=== PATIENT | female | born 1940 | race Caucasian/White ===

== ENCOUNTER 2018-04-02 16:22 | Inpatient (IN) ==
[2018-04-02] MEDS ORDERED: ASPIRIN CHEW 324 MG PO STA (16:50)
[2018-04-02 17:09] LABS: Basophils # (auto) 0.02 K/uL (0-0.2); Basophils % (auto) 0.3 %; Eosinophils # (auto) 0.18 K/uL (0-0.5); Eosinophils % (auto) 2.3 %; Hematocrit (blood only) 38.9 % (37-47); Hemoglobin 12.9 g/dL (12.0-16.0); Immature Granulocytes # (auto) 0.07 K/uL (0.00-0.02); Immature Granulocytes % (auto) 0.9 %; Lymphocytes # (auto) 1.05 K/uL (1.2-3.4); Lymphocytes % (auto) 13.4 %; Mean Corpuscular Hgb Conc 33.2 g/dL (32-36); Mean Corpuscular Volume 94.2 fL (80-100); Mean Platelet Volume 8.8 fL (7.4-10.4); Monocytes # (auto) 0.75 K/uL (0.11-0.59); Monocytes % (auto) 9.6 %; Neutrophils # (auto) 5.74 K/uL (1.4-6.5); Neutrophils % (auto) 73.5 %; Platelet Count 445 K/uL (130-400); RDW Coefficient of Variation 14.7 % (11.5-14.5); RDW Standard Deviation 50.9 fL (36.4-46.3); Red Blood Count 4.13 M/uL (4.2-5.4); White Blood Count 7.81 K/uL (4.8-10.8)
--- NOTE | 2018-04-02 17:14 | XRay Report ---
SINGLE VIEW CHEST CLINICAL HISTORY: Atypical chest pain. FINDINGS: An AP, portable, upright chest radiograph is obtained. No prior studies are available for c omparison at the time of dictation. The examination is degraded by portable technique and patient ro tation. The cardiomediastinal silhouette is unremarkable. There is a right-sided aortic arch, which demonstrates atherosclerotic calcification. There is bibasilar atelectasis. No airspace consolidation or large pleural effusion is identified. A nodular density is questioned in the left upper lobe. No pneumothorax is seen. The skeletal structures are osteopenic. Degenerative change and scoliosis are n oted in the thoracic spine. Arthritic change is also seen in the shoulders. IMPRESSION: 1. There is no acute cardiopulmonary abnormality. 2. A right-sided aortic arch is incidentally noted. 3. Question a subcentimeter pulmonary nodule in the left upper lobe. Further assessed with a nonemerg ent chest CT is recommended. Electronically signed by: Thien Alaniz M.D. 04/02/2018 5:13 PM
[2018-04-02 17:17] LABS: Base Excess VBG 1.5 mEq/L; Oxygen Saturation VBG 76.6 %; pH VBG 7.44 (7.36-7.41)
[2018-04-02 17:17] LABS: INR 1.1 (0.9-1.1); Partial Thromboplastin Ratio 1.2; Partial Thromboplastin Time 31.2 Seconds (21.0-31.0); Prothrombin Time 10.7 Seconds (9.0-12.0)
[2018-04-02 17:25] LABS: BUN Creatinine Ratio 16.6 (10-20); Blood Urea Nitrogen 16 mg/dl (7-18); Calcium 9.8 mg/dl (8.5-10.1); Carbon Dioxide 26 mmol/L (21-32); Chloride 100 mmol/L (98-107); Creatinine Clr Calc Pharmacy 32.5 ml/min; Est GFR (African American) 65.8; Est GFR (Non-African American) 56.7; Glucose 110 mg/dl (70-99); Potassium 3.6 mmol/L (3.5-5.1); Sodium 135 mmol/L (136-145)
[2018-04-02 17:29] LABS: Troponin I < 0.015 ng/ml (0-0.045)
[2018-04-02] MEDS ORDERED: OPTIRAY 320 125ml IV PRN (18:36)
[2018-04-02 18:39] LABS: Influenza A virus by PCR Neg for Influ A (Neg); Influenza B virus by PCR Neg for Influ B (Neg)
--- NOTE | 2018-04-02 19:29 | CT Scan Report ---
CT ANGIOGRAM OF THE CHEST CLINICAL HISTORY: Atypical chest pain. COMPARISON STUDY: Chest x-ray dated 04/02/2018. TECHNIQUE: Following the IV administration of 80 cc of Optiray 320, CT angiogram of the chest was per formed from the upper abdomen to the thoracic inlet utilizing the pulmonary embolus protocol. Images are reviewed in the axial, sagittal, and coronal planes. 3-D MIPS images are created and assessed. IV contrast was administered without complication. A dose lowering technique was utilized adhering to the principles of ALARA. CT DOSE: 200.24 mGy.cm FINDINGS: Thyroid: Atrophic. Thoracic aorta: There is a right-sided aortic arch. There is atherosclerotic calcification of the tho racic aorta which demonstrates 3-vessel anatomy. No dissection is seen. Pulmonary vasculature: The main pulmonary arteries are dilated indicating pulmonary artery hypertensi on. There are no filling defects identified in main, lobar, or segmental pulmonary branches to sugges t pulmonary embolus. Heart: The heart is enlarged and without pericardial effusion. There are scattered coronary artery ca lcifications. Lungs and pleural spaces: Advanced emphysematous change is identified. Volume loss and postoperative change is suggested at the right lung base. There is biapical scarring. A component of nodularity at the left apex on image #173 measures up to 6 mm. A 4 mm nodule is seen in the right upper lobe on will ge #95. No airspace consolidation or pleural effusion is identified. There is bibasilar scarring/atel ectasis. The trachea and central airways are clear. There are scattered calcified granulomas. Mediastinum: There is no mediastinal lymphadenopathy. Azra: Clear. Axillae: There is no axillary lymphadenopathy. Upper abdomen: Cholecystectomy clips are noted. Partially visualized upper abdominal viscera is other madden grossly unremarkable. Skeletal structures: The skeletal structures are osteopenic. Mild degenerative change is noted in the thoracic spine. No lytic or blastic bony lesions are seen. Advanced arthritic change is seen in the shoulders. There are healed left-sided rib fractures. IMPRESSION: 1. There is no evidence of pulmonary embolus in the main, lobar, or segmental pulmonary arteries. 2. Cardiomegaly and advanced emphysema. 3. There is no airspace consolidation or pleural effusion. 4. A right-sided aortic arch is incidentally noted. 5. The nodular density questioned by chest x-ray corresponds to a healed left-sided rib fracture. 6. There is biapical scarring. The left apical scarring demonstrate a somewhat nodular configuration and measures up to 6 mm. Additionally, there is a 4 mm nodule in the right upper lobe. Follow-up is r ecommended as per the Fleischner criteria. See below. 7. Additional findings as above. Please refer to below summary of Fleischner criteria recommendations for follow-up of incidental CT n odules (Sunny Ross, Guidelines for management of small pulmonary nodules detected on CT scans: A sta tement from the Fleischner Society, Radiology 237: [id number].) SOLID NODULES Solitary nodule size: <6 mm * low risk patients: no follow-up needed * high risk patients: optional CT at 12 months Solitary nodule size: 6-8 mm * low risk patients: follow-up at 6-12 months, then consider further follow-up at 18-24 months * high risk patients: initial follow-up CT at 6-12 months and then at 18-24 months if no change Solitary nodule size: >8 mm * either low or high risk patients - consider follow-up CT at 3 months, and/or CT-PET, and/or biopsy Multiple nodules size: <6 mm * low risk patients: no routine follow-up * high risk patients: optional CT at 12 months Multiple nodules size: 6-8 mm * low risk patients: follow-up at 3-6 months, then consider further follow-up at 18-24 months * high risk patients: follow-up at 3-6 months, then at 18-24 months if no change Multiple nodules size: >8 mm * low risk patients: follow-up at 3-6 months, then consider further follow-up at 18-24 months * high risk patients: follow-up at 3-6 months, then at 18-24 months if no change Note: newly detected indeterminate nodule in persons 35 years of age or older. * low risk patients: minimal or absent history of smoking and/or other known risk factors * high risk patients: history of smoking or of other known risk factors (e.g. first degree relative with lung cancer, or exposure to asbestos, radon, uranium) * if a nodule up to 8 mm is partly solid or is ground glass further follow-up is required after 24 m onths to exclude possible slow growing adenocarcinoma (MICHAEL) SUBSOLID NODULES Solitary pure ground-glass nodule * nodule size <6 mm - no CT follow-up required * nodule size >=6 mm - follow-up CT at 6-12 months, then every 2 years until 5 years Solitary part-solid nodule * nodule size <6 mm - no CT follow-up required * nodule size >=6 mm - follow-up CT at 3-6 months. If unchanged, and solid component remains <6 mm, then annual follow-up for 5 years Multiple subsolid nodules * nodule size <6 mm - follow-up CT at 3-6 months, consider further follow-up at 2 and 4 years if sta ble * nodule size >=6 mm - follow-up CT at 3-6 months, subsequent management based on the most suspiciou s nodule(s) Electronically signed by: Thien Alaniz M.D. 04/02/2018 7:28 PM
--- NOTE | 2018-04-02 20:07 | History & Physical Report ---
Date of Service April 02, 2018 Assessment & Plan (1) Dyspnea: (2) Dyspnea on exertion: (3) GERD (gastroesophageal reflux disease): (4) Hypoxia: (5) Chronic back pain: (6) Leg abrasion: (7) Leg cramps: Litzy is a pleasant 77yo F who presents from her PCPs office for continued dyspnea at rest and on exertion) and hypoxia x 2 weeks. Requires 2L O2 to maintain sats >87%. She has never been told she has CHF or COPD. She was seen at [facility] for dyspnea and leg swelling 2 weeks ago and workup was apparently negative. She is a previous smoker, 30 pk yr history. Dyspnea/Hypoxia -CT negative for PE but did show emphysema, cardiomegaly, pulm nodule -Will request records from [place] -Last echo August 2017, will request records for this as well. If none available, would repeat in AM -Will give 20mg IV lasix now -Continue 20mg lasix home dose, however this was meant to be temporary; day team discretion. -BNP normal, no peripheral edema or JVD -prn duonebs -Should be discharged on spiriva, prn albuterol and should have outpatient PFTs performed -May need home oxygen if ambulatory sats dictate this requirement -Follow up lung nodule per guidelines Back pain -Continue tramadol and celebrex -Patient has percocet on med list but does not have at home, not using at home GERD -Protonix Leg cramps -prn diazepam hs Leg lesions -Consult wound care DVTP: lovenox 40 Code: full Dispo: inpatient management for hypoxia History of Present Illness Chief Complaint: shortness of breath Primary Care Provider: Tyrone Leary Patient is a pleasant 77yo F who presents from PCPs office for hypoxia and continued dyspnea at rest and on exertion for 2 weeks. Two weeks ago, she presented to her PCP for dyspnea, was found to be hypoxic with peripheral edema , and she was sent to [facility] for evaluation. At [place], she was worked up for dyspnea, was told everything was negative, that she didn't have PE/CHF/ need for oxygen, was kept overnight for observation, felt she did not require home oxygen and was sent home on lasix 20 mg daily. Today she was seen by her PCP for follow up to this hospital visit and was found to have an O2Sat of 88% on room air and reported continued dyspnea at rest and exertion, and was sent for further evaulation. Of note, patient smoked 1ppd x 30 years but quit about 25 years ago. She states she has never been told and has never heard of "COPD." She has not been feeling unwell lately but does note an upset stomach which she thinks is from her aspirin. PMH: -GERD--esomeprazole -HTN--lisinopril 5 -Chronic back pain on celebrex and tramodol. *Percocet on her med list but pt does not use anymore -Leg cramps, severe-uses diazepam prn PSH: -Lung surgery for fatty tumors -Cholecystectomy Allergies Allergy/AdvReac Type Severity Reaction Status Date / Time Rsdhjje-Okk-Syx Reductase Allergy Intermediate Muscle Pain Verified 04/02/18 17: 30 Inhibitor UNKNOWN ANTIBIOTICS Allergy Unknown CAN'T Uncoded 04/02/18 17:30 REMEMBER Home Medications Home Medications Medication Instructions Recorded Confirmed Type calcium carbonate [Calcium 600] 600 mg PO DAILY 04/02/18 04/02/18 History celecoxib [Celebrex] 200 mg PO BID 04/02/18 04/02/18 History cholecalciferol (vitamin D3) 2,000 unit PO DAILY 04/02/18 04/02/18 History [Vitamin D3] diazepam 5 mg PO DAILY 04/02/18 04/02/18 History esomeprazole magnesium 40 mg PO DAILY 04/02/18 04/02/18 History furosemide [Lasix] 20 mg PO DAILY 04/02/18 04/02/18 History hydrocodone-acetaminophen 1 tab PO Q6H PRN 04/02/18 04/02/18 History levothyroxine [Synthroid] 100 mcg PO DAILY 04/02/18 04/02/18 History lisinopril 5 mg PO HS 04/02/18 04/02/18 History meclizine 25 mg PO TID PRN 04/02/18 04/02/18 History potassium chloride 10 meq PO DAILY 04/02/18 04/02/18 History tramadol 50 mg PO Q4 PRN 04/02/18 04/02/18 History vit C-rut-hesp cmp-bioflav,cit 1 tab PO DAILY 04/02/18 04/02/18 History [Special C] Past Med/Surg History Medical History GERD (gastroesophageal reflux disease) Social History Current Living Situation: Spouse Other Information That Helps Us Care for You: No Feels Safe at Home: Yes Safety Concerns: Feels Safe At This Time Smoking Status: Former smoker Do You Dip or Chew Tobacco: No Smoking End Date: 1994 Hx Alcohol Use: No Hx Substance Use: No Beliefs That Will Affect Care: Anabaptism Anabaptism Beliefs: Anabaptism Preferred Language: Kyrgyz Communication Ability: Effective Steel Handler Required: No Review of Systems All systems reviewed & are unremarkable except as noted in HPI & below Constitutional: no fever, no chills, no fatigue and no anorexia Respiratory: + dyspnea and + dyspnea on exertion; no cough and no wheezing Cardiovascular: + dyspnea, + dyspnea at rest and + dyspnea on exertion; no chest pain, no radiating jaw, neck or arm pain, no lightheadedness, no syncope, no edema and no calf pain Gastrointestinal: + heartburn and + problem reported (abdominal discomfort); no abdominal pain, no bloating, no nausea and no vomiting Genitourinary (Female): no dysuria, no urinary frequency and no urinary hesitancy Musculoskeletal: + back pain (chronic) Integumentary: + lesions (2 lesions on anterior shins, one from sheet metal, one from something falling on her leg) and + non-healing lesions Neurologic: no falls, no paresthesia, no tremor(s), no dizziness, no syncope and no headache(s) Psychiatric: no depression Physical Exam 2 Vital Signs (Past 24 Hours): Last Vital Signs Temp 36.4 C L 04/02/18 16:27 Pulse 99 H 04/02/18 19:19 Resp 18 04/02/18 19:19 BP 120/75 04/02/18 19:19 Pulse Ox 96 04/02/18 19:19 Constitutional: WD/WN, vitals as above average body habitus; not ill appearing Eyes: PERRL, conjunctivae normal, anicteric sclerae ENMT: external ear and nose normal, oropharynx normal Neck: normal visual inspection Respiratory: normal respiratory effort; no labored breathing Auscultation: + crackles (bibasilar); no wheezes Cardiovascular: RRR, no murmur, no edema Extremities: no pedal edema and no edema Gastrointestinal (Abdomen): normal bowel sounds, soft, nontender, no hepatosplenomegaly Musculoskeletal: no cyanosis or clubbing, extremities motor strength 5/5 Skin: + turgor decreased and + wound (2 lesions on anterior shins. LLE some drainage noted, 2-3 cm; RLE-small, healing) Neurologic: PERRL, EOMI, accommodation nl, no face palsy, no dysarthria Psychiatric: A+Ox3, euthymic affect Results & Data Laboratory Results 04/02/18 04/02/18 04/02/18 Range/Units 17:50 17:08 16:55 WBC (4.8-10.8) K/uL RBC (4.2-5.4) M/uL Hgb (12.0-16.0) g/dL Hct (37-47) % MCV (80-100) fL MCH (25-34) pg MCHC (32-36) g/dL RDW Std Deviation (36.4-46.3) fL RDW Coeff of Pamela (11.5-14.5) % Plt Count (130-400) K/uL MPV (7.4-10.4) fL Immature Gran % (Auto) % Neut % (Auto) % Lymph % (Auto) % Craven % (Auto) % Eos % (Auto) % Baso % (Auto) % Immature Gran # (Auto) (0.00-0.02) K/uL Neut # (Auto) (1.4-6.5) K/uL Lymph # (Auto) (1.2-3.4) K/uL Craven # (Auto) (0.11-0.59) K/uL Eos # (Auto) (0-0.5) K/uL Baso # (Auto) (0-0.2) K/uL PT (9.0-12.0) Seconds INR (0.9-1.1) APTT (21.0-31.0) Seconds PTT Ratio VBG pH 7.44 H (7.36-7.41) VBG pCO2 38 (38-50) mmHg VBG pO2 42 mmHg VBG HCO3 26 mmol/L VBG O2 Saturation 76.6 % VBG Base Excess 1.5 mEq/L Barometric Pressure 733.8 mm/Hg Sodium (136-145) mmol/L Potassium (3.5-5.1) mmol/L Chloride (98-107) mmol/L Carbon Dioxide (21-32) mmol/L Anion Gap (3-11) BUN (7-18) mg/dl Creatinine (0.6-1.2) mg/dl Est Cr Clr Drug Dosing ml/min Est GFR ( Amer) Est GFR (Non-Af Amer) BUN/Creatinine Ratio (10-20) Glucose (70-99) mg/dl Calcium (8.5-10.1) mg/dl Troponin I (0-0.045) ng/ml NT-Pro-B Natriuret Pep 188 (0-1800) pg/ml Lipase (73-393) U/L Influenza Type A (PCR) Neg for Influ A (Neg) Influenza Type B (PCR) Neg for Influ B (Neg) 04/02/18 04/02/18 04/02/18 Range/Units 16:55 16:55 16:55 WBC 7.81 (4.8-10.8) K/uL RBC 4.13 L (4.2-5.4) M/uL Hgb 12.9 (12.0-16.0) g/dL Hct 38.9 (37-47) % MCV 94.2 (80-100) fL MCH 31.2 (25-34) pg MCHC 33.2 (32-36) g/dL RDW Std Deviation 50.9 H (36.4-46.3) fL RDW Coeff of Pamela 14.7 H (11.5-14.5) % Plt Count 445 H (130-400) K/uL MPV 8.8 (7.4-10.4) fL Immature Gran % (Auto) 0.9 % Neut % (Auto) 73.5 % Lymph % (Auto) 13.4 % Craven % (Auto) 9.6 % Eos % (Auto) 2.3 % Baso % (Auto) 0.3 % Immature Gran # (Auto) 0.07 H (0.00-0.02) K/uL Neut # (Auto) 5.74 (1.4-6.5) K/uL Lymph # (Auto) 1.05 L (1.2-3.4) K/uL Craven # (Auto) 0.75 H (0.11-0.59) K/uL Eos # (Auto) 0.18 (0-0.5) K/uL Baso # (Auto) 0.02 (0-0.2) K/uL PT 10.7 (9.0-12.0) Seconds INR 1.1 (0.9-1.1) APTT 31.2 H (21.0-31.0) Seconds PTT Ratio 1.2 VBG pH (7.36-7.41) VBG pCO2 (38-50) mmHg VBG pO2 mmHg VBG HCO3 mmol/L VBG O2 Saturation % VBG Base Excess mEq/L Barometric Pressure mm/Hg Sodium 135 L (136-145) mmol/L Potassium 3.6 (3.5-5.1) mmol/L Chloride 100 (98-107) mmol/L Carbon Dioxide 26 (21-32) mmol/L Anion Gap 10.0 (3-11) BUN 16 (7-18) mg/dl Creatinine 0.97 (0.6-1.2) mg/dl Est Cr Clr Drug Dosing 32.5 ml/min Est GFR ( Amer) 65.8 Est GFR (Non-Af Amer) 56.7 BUN/Creatinine Ratio 16.6 (10-20) Glucose 110 H (70-99) mg/dl Calcium 9.8 (8.5-10.1) mg/dl Troponin I < 0.015 (0-0.045) ng/ml NT-Pro-B Natriuret Pep (0-1800) pg/ml Lipase 62 L (73-393) U/L Influenza Type A (PCR) (Neg) Influenza Type B (PCR) (Neg) Diagnostic Findings CT ANGIOGRAM OF THE CHEST CLINICAL HISTORY: Atypical chest pain. COMPARISON STUDY: Chest x-ray dated 04/02/2018. TECHNIQUE: Following the IV administration of 80 cc of Optiray 320, CT angiogram of the chest was performed from the upper abdomen to the thoracic inlet utilizing the pulmonary embolus protocol. Images are reviewed in the axial , sagittal, and coronal planes. 3-D MIPS images are created and assessed. IV contrast was administered without complication. A dose lowering technique was utilized adhering to the principles of ALARA. CT DOSE: 200.24 mGy.cm FINDINGS: Thyroid: Atrophic. Thoracic aorta: There is a right-sided aortic arch. There is atherosclerotic calcification of the thoracic aorta which demonstrates 3-vessel anatomy. No dissection is seen. Pulmonary vasculature: The main pulmonary arteries are dilated indicating pulmonary artery hypertension. There are no filling defects identified in main, lobar, or segmental pulmonary branches to suggest pulmonary embolus. Heart: The heart is enlarged and without pericardial effusion. There are scattered coronary artery calcifications. Lungs and pleural spaces: Advanced emphysematous change is identified. Volume loss and postoperative change is suggested at the right lung base. There is biapical scarring. A component of nodularity at the left apex on image #173 measures up to 6 mm. A 4 mm nodule is seen in the right upper lobe on image # 95. No airspace consolidation or pleural effusion is identified. There is bibasilar scarring/atelectasis. The trachea and central airways are clear. There are scattered calcified granulomas. Mediastinum: There is no mediastinal lymphadenopathy. Azra: Clear. Axillae: There is no axillary lymphadenopathy. Upper abdomen: Cholecystectomy clips are noted. Partially visualized upper abdominal viscera is otherwise grossly unremarkable. Skeletal structures: The skeletal structures are osteopenic. Mild degenerative change is noted in the thoracic spine. No lytic or blastic bony lesions are seen. Advanced arthritic change is seen in the shoulders. There are healed left- sided rib fractures. IMPRESSION: 1. There is no evidence of pulmonary embolus in the main, lobar, or segmental pulmonary arteries. 2. Cardiomegaly and advanced emphysema. 3. There is no airspace consolidation or pleural effusion. 4. A right-sided aortic arch is incidentally noted. 5. The nodular density questioned by chest x-ray corresponds to a healed left- sided rib fracture. 6. There is biapical scarring. The left apical scarring demonstrate a somewhat nodular configuration and measures up to 6 mm. Additionally, there is a 4 mm nodule in the right upper lobe. Follow-up is recommended as per the Fleischner criteria. See below. 7. Additional findings as above. Medications Administered Current Inpatient Medications Ioversol (Optiray 320 125ml) 80 ml IV ONCE PRN PRN Reason: Interaction Checking Stop: 04/06/18 18:35 Last Admin: 04/02/18 18:36 Dose: 80 ml Code Status & VTE Plan Code Status Full code VTE Prophylaxis Plan VTE Prophylaxis will be ordered: Yes Supervising Physician Co-Signing Physician Notes Patient seen and examined, chart reviewed, case discussed with Dr. Quintero and I agree with her assessment and plan as above. Briefly, patient is a 77yo female with GERD, HTN presenting with dyspnea and hypoxia, 88% on room air. She has had a dry cough for the last few weeks. Former smoker - 30py history, Quit 25 ya. Was seen by her PCP for this complaint and was sent to another hospital where she had a full workup that was reportedly normal. Patient has no formal diagnosis of lung disease. On exam she is afebrile, hemodynamically stable, no respiratory distress, saturating 96% on 2L, 88-89% on room air. NAD. Lung exam with rhonchi at the bases otherwise benign exam. No edema. Assessment/Plan: suspect undiagnosed COPD. Unsure if patient has had PFTs in the past -Obtain records from [facility] PRN -Lasix 20mg IV x 1 dose -Check ambulatory saturation in AM - patient may need home O2 (she is slightly resistant to this idea) -Outpatient PFTs. -Remainder of plan as above
--- NOTE | 2018-04-02 21:29 | Emergency Department Note ---
Entered by Fanny Devries acting as a scribe for Sreekanth Encarnacion History of Present Illness General Chief complaint: Shortness of Breath/Dyspnea Stated complaint: SOB Time Seen by Provider: 04/02/18 16:39 Source: patient Mode of arrival: ambulatory Limitations: no limitations History of Present Illness Onset (ago): day(s) 2 Location: chest Radiation: non-radiation Pain Consistency: + constant Maximum Pain Intensity: 0 Exacerbated By: + movement Associated symptoms: + headaches and + other (+hemoptysis ); no chest pain Treatments prior to arrival: none The patient is a 77 year old female who presents to the Emergency Room with complaints of shortness of breath for the past few days. She states she had an appointment with her doctor today and her Oxygen was low, so her doctor sent her here to the ED. Movement worsens her breathing. She admits to being a former smoker but quit 22 years ago. She denies any history of heart failure. She denies any recent chest pain. The patient admits to a recent history of a non healing wound and GERD. She states she had a "terrible" headache 2 nights ago and then started experiencing hemoptysis. The patient notes she was hospitalized in [place] 2 weeks ago. Home Medications Home Medications Medication Instructions Recorded Confirmed Type calcium carbonate [Calcium 600] 600 mg PO DAILY 04/02/18 04/02/18 History celecoxib [Celebrex] 200 mg PO BID 04/02/18 04/02/18 History cholecalciferol (vitamin D3) 2,000 unit PO DAILY 04/02/18 04/02/18 History [Vitamin D3] diazepam 5 mg PO DAILY 04/02/18 04/02/18 History esomeprazole magnesium 40 mg PO DAILY 04/02/18 04/02/18 History furosemide [Lasix] 20 mg PO DAILY 04/02/18 04/02/18 History hydrocodone-acetaminophen 1 tab PO Q6H PRN 04/02/18 04/02/18 History levothyroxine [Synthroid] 100 mcg PO DAILY 04/02/18 04/02/18 History lisinopril 5 mg PO HS 04/02/18 04/02/18 History meclizine 25 mg PO TID PRN 04/02/18 04/02/18 History potassium chloride 10 meq PO DAILY 01/18/19 01/18/19 History tramadol 50 mg PO Q4 PRN 04/02/18 04/02/18 History vit C-rut-hesp cmp-bioflav,cit 1 tab PO DAILY 04/02/18 04/02/18 History [Special C] Allergies Allergy/AdvReac Type Severity Reaction Status Date / Time Qbxlucv-Swi-Sla Reductase Allergy Intermediate Muscle Pain Verified 04/02/18 17: 30 Inhibitor UNKNOWN ANTIBIOTICS Allergy Unknown CAN'T Uncoded 04/02/18 17:30 REMEMBER Past Med/Surg History Medical History GERD (gastroesophageal reflux disease) Social History Current Living Situation: Spouse Other Information That Helps Us Care for You: No Feels Safe at Home: Yes Safety Concerns: Feels Safe At This Time Smoking Status: Former smoker Do You Dip or Chew Tobacco: No Smoking End Date: 1994 Hx Alcohol Use: No Hx Substance Use: No Beliefs That Will Affect Care: Oriental Orthodox Oriental Orthodox Beliefs: Hinduism Preferred Language: Kazakh Communication Ability: Effective V Groove Cutter Required: No Physical Exam Vital Signs Vital Signs - 24 hr 04/02/18 16:23 04/02/18 16:27 04/02/18 16:50 Temperature 36.4 C L Temperature Source Oral Sepsis Recent Fever Within 48 Hours No Sepsis New/Unexplained Change in Mental Status No Sepsis Action Taken by Nursing No Action Required Pulse Rate 118 H Pulse Rate [Left] Pulse Rhythm Regular Pulse Strength Normal Respiratory Rate 20 Respiratory Effort / Characteristics SOB on Exertion Non-Labored Spontaneous Respiratory Depth Normal Respiratory Pattern Regular Regular Blood Pressure 108/78 Blood Pressure [Left Arm] Blood Pressure Mean 88 Blood Pressure Mean [Left Arm] Blood Pressure Position Sitting Pulse Oximetry 91 95 Oxygen Delivery Method Room Air Room Air Room Air Oxygen Flow Rate 04/02/18 18:00 04/02/18 18:44 04/02/18 19:19 Temperature Temperature Source Sepsis Recent Fever Within 48 Hours Sepsis New/Unexplained Change in Mental Status Sepsis Action Taken by Nursing Pulse Rate Pulse Rate [Left] 98 H 99 H Pulse Rhythm Pulse Strength Respiratory Rate 12 18 Respiratory Effort / Characteristics Non-Labored Spontaneous Respiratory Depth Normal Respiratory Pattern Regular Blood Pressure Blood Pressure [Left Arm] 116/68 120/75 Blood Pressure Mean Blood Pressure Mean [Left Arm] 84 90 Blood Pressure Position Pulse Oximetry 88 L 97 96 Oxygen Delivery Method Room Air Nasal Cannula Nasal Cannula Oxygen Flow Rate 0 2 2 04/02/18 20:20 04/02/18 21:00 Temperature Temperature Source Sepsis Recent Fever Within 48 Hours Sepsis New/Unexplained Change in Mental Status Sepsis Action Taken by Nursing Pulse Rate Pulse Rate [Left] 94 H Pulse Rhythm Pulse Strength Respiratory Rate 23 Respiratory Effort / Characteristics Non-Labored Spontaneous Non-Labored Spontaneous Respiratory Depth Normal Normal Respiratory Pattern Regular Blood Pressure Blood Pressure [Left Arm] 134/76 Blood Pressure Mean Blood Pressure Mean [Left Arm] 95 Blood Pressure Position Pulse Oximetry 95 Oxygen Delivery Method Nasal Cannula Room Air Oxygen Flow Rate 2 GENERAL: She is oriented to person, place, and time. She appears well- developed and well-nourished. She does not appear distressed. HENT: Exam performed. Head: Normocephalic and atraumatic. Right Ear: External ear normal. No mastoid tenderness. Left Ear: External ear normal. No mastoid tenderness. Mouth/Throat: The oropharynx is clear and moist. No trismus in the jaw. No dental abscesses or uvula swelling. No oropharyngeal exudate or tonsillar abscesses. EYES: Conjunctivae and EOM are normal. Pupils are equal, round, and reactive to light. Right eye exhibits no discharge. Left eye exhibits no discharge. No scleral icterus. NECK: Normal range of motion. Neck supple. No JVD present. No spinous process tenderness present. No carotid bruit present. No rigidity. No tracheal deviation and normal range of motion present. No Brudzinski's sign and no Kernig 's sign noted. CV: Tachycardic heart rate, regular rhythm, normal heart sounds and intact distal pulses. There is no peripheral edema. Palpable radial pulses bue. PULM/CHEST: Effort normal and breath sounds normal. No respiratory distress. No stridor. She has no wheezes. Inspiratory rales at the bases. Chest Wall: She exhibits no tenderness. ABD: The abdomen is soft. Bowel sounds are normal. She has no distension. No mass is present. There is no tenderness. There is no rebound, no guarding, no Ferro's sign and no tenderness at McBurney's point. Rovsig negative MUSC/SKEL: Normal range of motion. There is no peripheral edema, tenderness or deformity. Well healing wound at left lower extremity. LYMPH: No cervical adenopathy. NEURO: She is alert and oriented to person, place, and time. She has normal strength. No cranial nerve deficit or sensory deficit. Coordination and gait normal. GCS eye subscore is 4. GCS verbal subscore is 5. GCS motor subscore is 6. cerbellar tests wnl. Reflezes in bilateral LE are present, no clonus. SKIN: Skin is warm and dry. She is not diaphoretic. PSYCH: She has a normal mood and affect. Her behavior is normal. Judgment and thought content normal. Course 1642: Past medical records reviewed. The patient was evaluated in room B4B, and a complete history and physical examination were performed. EKG shows S1Q3T3. Patient will be evaluated for PE. 1838: She dropped to 88% on RA. She was started on 2L NC. 1934: Vital signs stable. Labs and imaging within normal limits. Records from [facility] were faxed over after orders were placed and he states that the patient was recently admitted there, had a CT of the chest as well as a negative stress test. Serial troponins were negative. The patient was discharged home without oxygen. Given the patient's need for supplemental oxygen in the emergency department and that she does not wear oxygen at home, I discussed the patients case with Dr. Ryan [facility]ist. The patient will be further evaluated for admission. Consultations Consultation #1: I discussed the patients case with Dr. Ryan, [place] [facility]ist. The patient will be further evaluated. Time: 19:35 Administered Medications Ioversol (Optiray 320 125ml) 80 ml IV ONCE PRN PRN Reason: Interaction Checking Stop: 04/06/18 18:35 Last Admin: 04/02/18 18:36 Dose: 80 ml Discontinued Medications Aspirin (Aspirin) 324 mg PO NOW STA Stop: 04/02/18 16:51 Last Admin: 04/02/18 17:01 Dose: 324 mg Medical Decision Making Medical Records Attestation: I reviewed the patient's medical records. Home Medications Current Medication List: was personally reviewed by me Laboratory Data Attestation: I reviewed the patient's lab results. Result diagrams: 04/02/18 16:55 04/02/18 16:55 Lab Results 04/02/18 04/02/18 04/02/18 Range/Units 16:55 16:55 16:55 WBC 7.81 (4.8-10.8) K/uL RBC 4.13 L (4.2-5.4) M/uL Hgb 12.9 (12.0-16.0) g/dL Hct 38.9 (37-47) % MCV 94.2 (80-100) fL MCH 31.2 (25-34) pg MCHC 33.2 (32-36) g/dL RDW Std Deviation 50.9 H (36.4-46.3) fL RDW Coeff of Pamela 14.7 H (11.5-14.5) % Plt Count 445 H (130-400) K/uL MPV 8.8 (7.4-10.4) fL Immature Gran % (Auto) 0.9 % Neut % (Auto) 73.5 % Lymph % (Auto) 13.4 % [place] % (Auto) 9.6 % Eos % (Auto) 2.3 % Baso % (Auto) 0.3 % Immature Gran # (Auto) 0.07 H (0.00-0.02) K/uL Neut # (Auto) 5.74 (1.4-6.5) K/uL Lymph # (Auto) 1.05 L (1.2-3.4) K/uL [place] # (Auto) 0.75 H (0.11-0.59) K/uL Eos # (Auto) 0.18 (0-0.5) K/uL Baso # (Auto) 0.02 (0-0.2) K/uL PT 10.7 (9.0-12.0) Seconds INR 1.1 (0.9-1.1) APTT 31.2 H (21.0-31.0) Seconds PTT Ratio 1.2 VBG pH (7.36-7.41) VBG pCO2 (38-50) mmHg VBG pO2 mmHg VBG HCO3 mmol/L VBG O2 Saturation % VBG Base Excess mEq/L Barometric Pressure mm/Hg Sodium 135 L (136-145) mmol/L Potassium 3.6 (3.5-5.1) mmol/L Chloride 100 (98-107) mmol/L Carbon Dioxide 26 (21-32) mmol/L Anion Gap 10.0 (3-11) BUN 16 (7-18) mg/dl Creatinine 0.97 (0.6-1.2) mg/dl Est Cr Clr Drug Dosing 32.5 ml/min Est GFR ( Amer) 65.8 Est GFR (Non-Af Amer) 56.7 BUN/Creatinine Ratio 16.6 (10-20) Glucose 110 H (70-99) mg/dl Calcium 9.8 (8.5-10.1) mg/dl Troponin I < 0.015 (0-0.045) ng/ml NT-Pro-B Natriuret Pep (0-1800) pg/ml Lipase 62 L (73-393) U/L Influenza Type A (PCR) (Neg) Influenza Type B (PCR) (Neg) 04/02/18 04/02/18 04/02/18 Range/Units 16:55 17:08 17:50 WBC (4.8-10.8) K/uL RBC (4.2-5.4) M/uL Hgb (12.0-16.0) g/dL Hct (37-47) % MCV (80-100) fL MCH (25-34) pg MCHC (32-36) g/dL RDW Std Deviation (36.4-46.3) fL RDW Coeff of Pamela (11.5-14.5) % Plt Count (130-400) K/uL MPV (7.4-10.4) fL Immature Gran % (Auto) % Neut % (Auto) % Lymph % (Auto) % [place] % (Auto) % Eos % (Auto) % Baso % (Auto) % Immature Gran # (Auto) (0.00-0.02) K/uL Neut # (Auto) (1.4-6.5) K/uL Lymph # (Auto) (1.2-3.4) K/uL [place] # (Auto) (0.11-0.59) K/uL Eos # (Auto) (0-0.5) K/uL Baso # (Auto) (0-0.2) K/uL PT (9.0-12.0) Seconds INR (0.9-1.1) APTT (21.0-31.0) Seconds PTT Ratio VBG pH 7.44 H (7.36-7.41) VBG pCO2 38 (38-50) mmHg VBG pO2 42 mmHg VBG HCO3 26 mmol/L VBG O2 Saturation 76.6 % VBG Base Excess 1.5 mEq/L Barometric Pressure 733.8 mm/Hg Sodium (136-145) mmol/L Potassium (3.5-5.1) mmol/L Chloride (98-107) mmol/L Carbon Dioxide (21-32) mmol/L Anion Gap (3-11) BUN (7-18) mg/dl Creatinine (0.6-1.2) mg/dl Est Cr Clr Drug Dosing ml/min Est GFR ( Amer) Est GFR (Non-Af Amer) BUN/Creatinine Ratio (10-20) Glucose (70-99) mg/dl Calcium (8.5-10.1) mg/dl Troponin I (0-0.045) ng/ml NT-Pro-B Natriuret Pep 188 (0-1800) pg/ml Lipase (73-393) U/L Influenza Type A (PCR) Neg for Influ A (Neg) Influenza Type B (PCR) Neg for Influ B (Neg) Imaging Data Radiologist's Impression: Radiology results as stated below per my review and the radiologist's interpretation: SINGLE VIEW CHEST CLINICAL HISTORY: Atypical chest pain. FINDINGS: An AP, portable, upright chest radiograph is obtained. No prior studies are available for comparison at the time of dictation. The examination is degraded by portable technique and patient rotation. The cardiomediastinal silhouette is unremarkable. There is a right-sided aortic arch, which demonstrates atherosclerotic calcification. There is bibasilar atelectasis. No airspace consolidation or large pleural effusion is identified. A nodular density is questioned in the left upper lobe. No pneumothorax is seen. The skeletal structures are osteopenic. Degenerative change and scoliosis are noted in the thoracic spine. Arthritic change is also seen in the shoulders. IMPRESSION: 1. There is no acute cardiopulmonary abnormality. 2. A right-sided aortic arch is incidentally noted. 3. Question a subcentimeter pulmonary nodule in the left upper lobe. Further assessed with a nonemergent chest CT is recommended. Electronically signed by: Thien Alaniz M.D. 04/02/2018 5:[address] ANGIOGRAM OF THE CHEST CLINICAL HISTORY: Atypical chest pain. COMPARISON STUDY: Chest x-ray dated 04/02/2018. TECHNIQUE: Following the IV administration of 80 cc of Optiray 320, CT angiogram of the chest was performed from the upper abdomen to the thoracic inlet utilizing the pulmonary embolus protocol. Images are reviewed in the axial , sagittal, and coronal planes. 3-D MIPS images are created and assessed. IV contrast was administered without complication. A dose lowering technique was utilized adhering to the principles of ALARA. CT DOSE: 200.24 mGy.cm FINDINGS: Thyroid: Atrophic. Thoracic aorta: There is a right-sided aortic arch. There is atherosclerotic calcification of the thoracic aorta which demonstrates 3-vessel anatomy. No dissection is seen. Pulmonary vasculature: The main pulmonary arteries are dilated indicating pulmonary artery hypertension. There are no filling defects identified in main, lobar, or segmental pulmonary branches to suggest pulmonary embolus. Heart: The heart is enlarged and without pericardial effusion. There are scattered coronary artery calcifications. Lungs and pleural spaces: Advanced emphysematous change is identified. Volume loss and postoperative change is suggested at the right lung base. There is biapical scarring. A component of nodularity at the left apex on image #173 measures up to 6 mm. A 4 mm nodule is seen in the right upper lobe on image # 95. No airspace consolidation or pleural effusion is identified. There is bibasilar scarring/atelectasis. The trachea and central airways are clear. There are scattered calcified granulomas. Mediastinum: There is no mediastinal lymphadenopathy. Az[place]: Clear. Axillae: There is no axillary lymphadenopathy. Upper abdomen: Cholecystectomy clips are noted. Partially visualized upper abdominal viscera is otherwise grossly unremarkable. Skeletal structures: The skeletal structures are osteopenic. Mild degenerative change is noted in the thoracic spine. No lytic or blastic bony lesions are seen. Advanced arthritic change is seen in the shoulders. There are healed left- sided rib fractures. IMPRESSION: 1. There is no evidence of pulmonary embolus in the main, lobar, or segmental pulmonary arteries. 2. Cardiomegaly and advanced emphysema. 3. There is no airspace consolidation or pleural effusion. 4. A right-sided aortic arch is incidentally noted. 5. The nodular density questioned by chest x-ray corresponds to a healed left- sided rib fracture. 6. There is biapical scarring. The left apical scarring demonstrate a somewhat nodular configuration and measures up to 6 mm. Additionally, there is a 4 mm nodule in the right upper lobe. Follow-up is recommended as per the Fleischner criteria. See below. 7. Additional findings as above. Please refer to below summary of Fleischner criteria recommendations for follow- up of incidental CT nodules (Sunny Ross, Guidelines for management of small pulmonary nodules detected on CT scans: A statement from the Fleischner Society , Radiology 237: [phone].) SOLID NODULES Solitary nodule size: <6 mm * low risk patients: no follow-up needed * high risk patients: optional CT at 12 months Solitary nodule size: 6-8 mm * low risk patients: follow-up at 6-12 months, then consider further follow- up at 18-24 months * high risk patients: initial follow-up CT at 6-12 months and then at 18-24 months if no change Solitary nodule size: >8 mm * either low or high risk patients - consider follow-up CT at 3 months, and/or CT-PET, and/or biopsy Multiple nodules size: <6 mm * low risk patients: no routine follow-up * high risk patients: optional CT at 12 months Multiple nodules size: 6-8 mm * low risk patients: follow-up at 3-6 months, then consider further follow-up at 18-24 months * high risk patients: follow-up at 3-6 months, then at 18-24 months if no change Multiple nodules size: >8 mm * low risk patients: follow-up at 3-6 months, then consider further follow-up at 18-24 months * high risk patients: follow-up at 3-6 months, then at 18-24 months if no change Note: newly detected indeterminate nodule in persons 35 years of age or older. * low risk patients: minimal or absent history of smoking and/or other known risk factors * high risk patients: history of smoking or of other known risk factors (e.g. first degree relative with lung cancer, or exposure to asbestos, radon, uranium) * if a nodule up to 8 mm is partly solid or is ground glass further follow-up is required after 24 months to exclude possible slow growing adenocarcinoma (MICHAEL ) SUBSOLID NODULES Solitary pure ground-glass nodule * nodule size <6 mm - no CT follow-up required * nodule size >=6 mm - follow-up CT at 6-12 months, then every 2 years until 5 years Solitary part-solid nodule * nodule size <6 mm - no CT follow-up required * nodule size >=6 mm - follow-up CT at 3-6 months. If unchanged, and solid component remains <6 mm, then annual follow-up for 5 years Multiple subsolid nodules * nodule size <6 mm - follow-up CT at 3-6 months, consider further follow-up at 2 and 4 years if stable * nodule size >=6 mm - follow-up CT at 3-6 months, subsequent management based on the most suspicious nodule(s) Electronically signed by: Thien Alaniz M.D. 04/02/2018 7:28 PM ECG Data Attestation: I personally reviewed and interpreted this ECG as follows: Indication: SOB/dyspnea Rate (beats per minute): 115 Rhythm: sinus tachycardia Findings: + other (AZ, QRS and QTC are within normal limits, S1, Q3 and T3 pattern are present); no ST depression and no ST elevation Blood Pressure Blood Pressure Findings: Normal blood pressure Blood Pressure Disposition: did not require urgent referral MDM Narrative 1643: Past medical records reviewed. The patient was evaluated in room B4B, and a complete history and physical examination were performed. EKG shows S1Q3T3. Patient will be evaluated for PE. 183: She dropped to 88% on RA. She was started on 2L NC. 1934: Vital signs stable. Labs and imaging within normal limits. Records from [facility] were faxed over after orders were placed and he states that the patient was recently admitted there, had a CT of the chest as well as a negative stress test. Serial troponins were negative. The patient was discharged home without oxygen. Given the patient's need for supplemental oxygen in the emergency department and that she does not wear oxygen at home, I discussed the patients case with Dr. Ryan, [facility] Hospitalist. The patient will be further evaluated for admission. Impression & Plan Hypoxia Discharge Plan Visit Data Chief Complaint: Shortness of Breath/Dyspnea Stated Complaint: SOB ED Provider: Sreekanth Encarnacion Discharge Problem: Hypoxia Patient Disposition: Being Evaluated by Hospitalist Forms Stand Alone Forms: My [facility] Prescriptions Prescriptions: No Action celecoxib [Celebrex] 200 mg Capsule 200 mg PO BID RF: 0 hydrocodone-acetaminophen 5-325 mg Tablet 1 tab PO Q6H PRN (Reason: Pain) RF: 0 potassium chloride 10 mEq Tablet Extended Release 10 meq PO DAILY RF: 0 tramadol 50 mg Tablet 50 mg PO Q4 PRN (Reason: Pain) RF: 0 levothyroxine [Synthroid] 100 mcg Tablet 100 mcg PO DAILY RF: 0 meclizine 25 mg Tablet 25 mg PO TID PRN (Reason: Dizziness) RF: 0 esomeprazole magnesium 40 mg Capsule,Delayed Release(Dr/Ec) 40 mg PO DAILY RF: 0 lisinopril 5 mg Tablet 5 mg PO HS RF: 0 furosemide [Lasix] 20 mg Tablet 20 mg PO DAILY RF: 0 diazepam 5 mg Tablet 5 mg PO DAILY RF: 0 calcium carbonate [Calcium 600] 600 mg calcium (1,500 mg) Tablet 600 mg PO DAILY RF: 0 cholecalciferol (vitamin D3) [Vitamin D3] 2,000 unit Capsule 2,000 unit PO DAILY RF: 0 vit C-rut-hesp cmp-bioflav,cit [Special C] 122-13-65-200 mg Tablet 1 tab PO DAILY RF: 0 Referrals Referrals: Tyrone Leary [Primary Care Provider] - The scribe's documentation has been prepared under my direction and personally reviewed by me in its entirety. I confirm that the note above accurately reflects all work, treatment, procedures, and medical decision making performed by me.
[2018-04-02] MEDS ORDERED: ALBUT/IPRATROP 3MG/0.5MG NEB 3 ML VIAL NEB PRN (23:29)
[2018-04-02] MEDS ORDERED: HYDROCODONE/ACETAMOPHEN 5/325MG TAB PO PRN (23:29)
[2018-04-02] MEDS ORDERED: diazePAM 5 MG TABLET PO PRN (23:29)
[2018-04-02] MEDS ORDERED: MAGNESIUM HYDROXIDE SUSP 30 ML UDC PO PRN (23:29)
[2018-04-02] MEDS ORDERED: ALUMINUM/MAGNESIUM SUSP 30 ML UDC PO PRN (23:29)
[2018-04-02] MEDS ORDERED: FUROSEMIDE 40 MG/4 ML VIAL IV STA (23:41)
[2018-04-03] MEDS: MECLIZINE HCL 25 MG TAB PO PRN ×3 (00:48→22:55)
[2018-04-03] MEDS: LEVOTHYROXINE SODIUM 100 MCG TABLET PO SCH (05:48)
[2018-04-03] MEDS: TRAMADOL HCL 50 MG TABLET PO PRN ×2 (05:48→12:29)
[2018-04-03 06:33] LABS: Basophils # (auto) 0.01 K/uL (0-0.2); Basophils % (auto) 0.1 %; Eosinophils # (auto) 0.24 K/uL (0-0.5); Hematocrit (blood only) 39.7 % (37-47); Immature Granulocytes # (auto) 0.05 K/uL (0.00-0.02); Immature Granulocytes % (auto) 0.6 %; Lymphocytes # (auto) 0.97 K/uL (1.2-3.4); Lymphocytes % (auto) 12.2 %; Mean Corpuscular Hgb Conc 32.7 g/dL (32-36); Mean Corpuscular Volume 94.5 fL (80-100); Mean Platelet Volume 8.9 fL (7.4-10.4); Monocytes # (auto) 0.78 K/uL (0.11-0.59); Monocytes % (auto) 9.8 %; Neutrophils # (auto) 5.92 K/uL (1.4-6.5); Neutrophils % (auto) 74.3 %; Platelet Count 431 K/uL (130-400); RDW Coefficient of Variation 14.9 % (11.5-14.5); RDW Standard Deviation 50.5 fL (36.4-46.3); White Blood Count 7.97 K/uL (4.8-10.8)
[2018-04-03 06:57] LABS: BUN Creatinine Ratio 19.7 (10-20); Calcium 9.4 mg/dl (8.5-10.1); Creatinine Clr Calc Pharmacy 36.9 ml/min; Est GFR (African American) 77.1; Est GFR (Non-African American) 66.6
[2018-04-03 07:07] LABS: Potassium 3.5 mmol/L (3.5-5.1)
[2018-04-03] MEDS ORDERED: [UNRECOGNIZED DRUG - OTHER] PO SCH (09:00)
[2018-04-03] MEDS: CALCIUM CARBONATE 1250MG TAB PO SCH (09:29)
[2018-04-03] MEDS: CHOLECALCIFEROL 1,000 UNITS TAB PO SCH (09:29)
[2018-04-03] MEDS: CeleBREX 200 MG CAP PO SCH ×2 (09:29→20:37)
[2018-04-03] MEDS: FUROSEMIDE 20 MG TAB PO SCH (09:29)
[2018-04-03] MEDS: POTASSIUM CHLORIDE 10 MEQ TABCR PO SCH (09:29)
[2018-04-03] MEDS: PANTOprazole 40 MG TAB PO SCH (09:29)
[2018-04-03 12:22] LABS: Ferritin 140.3 ng/ml (8-388); Magnesium 1.8 mg/dl (1.8-2.4)
[2018-04-03] MEDS: DICLOFENAC SOD 1% GEL 100 GM TUBE EXT SCH ×3 (13:12→20:37)
[2018-04-03] MEDS ORDERED: PERFLUTREN LIPID MICROSPHERE (DEFINITY) IV ONE (14:04)
[2018-04-03 16:12] LABS: Appearance Urine Clear (Clear); Bilirubin Urine Negative (Negative); Color Urine Yellow; Glucose Urine UA Negative (Negative); Ketones Urine Negative (Negative); Leukocyte Esterase Urine Negative (Negative); Nitrite Urine Negative (Negative); Protein Urine Negative (Negative); Specific Gravity Urine 1.013 (1.000-1.030); Urobilinogen Urine Negative (Negative); pH Urine 6.5 (4.5-7.5)
[2018-04-03] MEDS: LISINOPRIL 5 MG TAB PO SCH (20:37)
--- NOTE | 2018-04-04 00:48 | Hospitalist Progress Note ---
Date of Service April 03, 2018 Assessment & Plan (1) Dyspnea on exertion: CTA chest w/o PEs, pneumonia, etc. emphysematous changes seen but I don't suspect this is the cause of WHITING. WHITING could be restrictive lung disease from scoliosis. WHITING could be undiagnosed CAD. Check an echo. O2 sats in RA with walking today were lowest about 92-93%. (2) Chronic back pain: 2nd to scoliosis. cannot rule out spinal stenosis, etc. treat symptoms for now. refer back to ortho spine after d/c. (3) Leg cramps: check Fe studies, mag, b12, etc - all wnl. She has muscle wasting of the thighs -- does she have a peripheral neuropathy causing such? consider neurology consult after d/c. (4) Abnormal chest CT: nodules needs outpatient f/u for this in light of prior tobacco use (5) Elevated sed rate: >90 no symptoms of temporal arteritis no clear-cut symptoms to suggest PMR underlying cancer in light of weight loss? autoimmune? other? crp also elevated consider blood cx's to r/o SBE await echo (6) Acquired hypothyroidism: TSH wnl cont synthroid (7) Osteoarthritis of multiple joints: severe OA voltaren gel qid for shoulders (that is the most problematic area for her) observe overnight, await echo Subjective patient with multiple complaints during my visit 1. dyspnea on exertion - present weeks/months, getting worse 2. b/l leg pains worse with activity 3. b/l shoulder pain due to OA 4. frontal headaches but not temporal 5. fatigue 6. back pains due to severe scoliosis; evaluated by ortho spine several years ago - declined surgery at that time at one point she said "I only came (to the hospital) because of my daughter" she was hospitalized in [place] a couple of weeks ago for dyspnea; "they didn't tell me anything" Constitutional: + weight loss (vague about how much); no fever Respiratory: no cough Cardiovascular: no chest pain Gastrointestinal: no abdominal pain Physical Exam 2 Vital Signs (Past 24 Hours): Last Vital Signs Temp 36.8 C 04/04/18 00:24 Pulse 111 H 04/04/18 00:24 Resp 20 04/04/18 00:24 BP 120/78 04/04/18 00:24 Pulse Ox 91 04/04/18 00:24 Constitutional: well developed and well nourished; no acute distress depressed looking ENMT: external ear and nose normal, oropharynx normal no tenderness over either temporal artery b/l Respiratory: normal respiratory effort, lungs clear to auscultation Cardiovascular: RRR, no murmur, no edema Heart Sounds: normal S1 and normal S2 Vessels: no JVD Gastrointestinal (Abdomen): normal bowel sounds, soft, nontender, no hepatosplenomegaly Musculoskeletal: severe OA changes of nearly every small joint b/l hands; no synovitis of any joint to suggest RA OA changes of knees, wrists, shoulders left elbow bursa - minimal fluid present scoliosis of spine Skin: venous stasis changes b/l shins ulceration left distal mao - clean-based Neurologic: strength 5/5 all muscle groups of arms and legs Psychiatric: Orientation: alert and oriented x 3 Affect: + depressed affect Results & Data Laboratory Results Laboratory Results - last 24 hr 04/03/18 04/03/18 04/03/18 06:03 06:03 11:23 WBC 7.97 RBC 4.20 Hgb 13.0 Hct 39.7 MCV 94.5 MCH 31.0 MCHC 32.7 RDW Std Deviation 50.5 H RDW Coeff of Pamela 14.9 H Plt Count 431 H MPV 8.9 Immature Gran % (Auto) 0.6 Neut % (Auto) 74.3 Lymph % (Auto) 12.2 Thur[place] % (Auto) 9.8 Eos % (Auto) 3.0 Baso % (Auto) 0.1 Immature Gran # (Auto) 0.05 H Neut # (Auto) 5.92 Lymph # (Auto) 0.97 L [place] # (Auto) 0.78 H Eos # (Auto) 0.24 Baso # (Auto) 0.01 ESR > 90 H Sodium 134 L Potassium 3.5 Chloride 96 L Carbon Dioxide 28 Anion Gap 10.0 BUN 17 Creatinine 0.85 Est Cr Clr Drug Dosing 36.9 Est GFR ( Amer) 77.1 Est GFR (Non-Af Amer) 66.6 BUN/Creatinine Ratio 19.7 Glucose 84 Calcium 9.4 Magnesium Iron TIBC Transferrin Transferrin % Sat Ferritin Total Creatine Kinase C-Reactive Protein Vitamin B12 25-OH Vitamin D Total TSH Urine Color Urine Appearance Urine pH Ur Specific [place] Urine Protein Urine Glucose (UA) Urine Ketones Urine Blood Urine Nitrite Urine Bilirubin Urine Urobilinogen Ur Leukocyte Esterase 04/03/18 04/03/18 04/03/18 11:23 11:23 11:23 WBC RBC Hgb Hct MCV MCH MCHC RDW Std Deviation RDW Coeff of Pamela Plt Count MPV Immature Gran % (Auto) Neut % (Auto) Lymph % (Auto) [place] % (Auto) Eos % (Auto) Baso % (Auto) Immature Gran # (Auto) Neut # (Auto) Lymph # (Auto) [place] # (Auto) Eos # (Auto) Baso # (Auto) ESR Sodium Potassium Chloride Carbon Dioxide Anion Gap BUN Creatinine Est Cr Clr Drug Dosing Est GFR ( Amer) Est GFR (Non-Af Amer) BUN/Creatinine Ratio Glucose Calcium Magnesium 1.8 Iron 29 L TIBC 292 Transferrin 232 Transferrin % Sat 9 L Ferritin 140.3 Total Creatine Kinase 42 C-Reactive Protein 6.95 H Vitamin B12 25-OH Vitamin D Total 58.6 TSH 0.818 Urine Color Urine Appearance Urine pH Ur Specific [place] Urine Protein Urine Glucose (UA) Urine Ketones Urine Blood Urine Nitrite Urine Bilirubin Urine Urobilinogen Ur Leukocyte Esterase 04/03/18 04/03/18 11:29 Unknown WBC RBC Hgb Hct MCV MCH MCHC RDW Std Deviation RDW Coeff of Pamela Plt Count MPV Immature Gran % (Auto) Neut % (Auto) Lymph % (Auto) [place] % (Auto) Eos % (Auto) Baso % (Auto) Immature Gran # (Auto) Neut # (Auto) Lymph # (Auto) [place] # (Auto) Eos # (Auto) Baso # (Auto) ESR Sodium Potassium Chloride Carbon Dioxide Anion Gap BUN Creatinine Est Cr Clr Drug Dosing Est GFR ( Amer) Est GFR (Non-Af Amer) BUN/Creatinine Ratio Glucose Calcium Magnesium Iron TIBC Transferrin Transferrin % Sat Ferritin Total Creatine Kinase C-Reactive Protein Vitamin B12 639 25-OH Vitamin D Total TSH Urine Color Yellow Urine Appearance Clear Urine pH 6.5 Ur Specific [place] 1.013 Urine Protein Negative Urine Glucose (UA) Negative Urine Ketones Negative Urine Blood Negative Urine Nitrite Negative Urine Bilirubin Negative Urine Urobilinogen Negative Ur Leukocyte Esterase Negative
[2018-04-04 06:38] LABS: BUN Creatinine Ratio 21.2 (10-20); Calcium 9.7 mg/dl (8.5-10.1); Creatinine Clr Calc Pharmacy 39.2 ml/min; Est GFR (Non-African American) 71.6; Potassium 3.6 mmol/L (3.5-5.1)
[2018-04-04] MEDS: LEVOTHYROXINE SODIUM 100 MCG TABLET PO SCH (07:12)
[2018-04-04] MEDS: CHOLECALCIFEROL 1,000 UNITS TAB PO SCH (07:47)
[2018-04-04] MEDS: CALCIUM CARBONATE 1250MG TAB PO SCH (07:47)
[2018-04-04] MEDS: PANTOprazole 40 MG TAB PO SCH (07:47)
[2018-04-04] MEDS: CeleBREX 200 MG CAP PO SCH ×2 (07:48→22:19)
[2018-04-04] MEDS: POTASSIUM CHLORIDE 10 MEQ TABCR PO SCH (07:49)
[2018-04-04] MEDS: FUROSEMIDE 20 MG TAB PO SCH (07:49)
[2018-04-04] MEDS: DICLOFENAC SOD 1% GEL 100 GM TUBE EXT SCH ×4 (07:49→22:19)
[2018-04-04] MEDS: SODIUM CHLORIDE 0.9% 1000ML 1,000 ML IV SCH (14:00)
[2018-04-04 15:28] LABS: Alanine Aminotransferase 23 U/L (12-78); Albumin Level 2.9 gm/dl (3.4-5.0); Alkaline Phosphatase 100 U/L (45-117); Aspartate Aminotransferase 18 U/L (15-37); Bilirubin Direct < 0.1 mg/dl (0-0.2); Bilirubin,Total 0.4 mg/dl (0.2-1); C Reactive Protein 8.03 mg/dl (0-0.29); Total Protein 7.8 gm/dl (6.4-8.2); Uric Acid 5.1 mg/dl (2.6-7.2)
[2018-04-04] MEDS ORDERED: IOVERSOL 100ml IV PRN (16:00)
--- NOTE | 2018-04-04 16:13 | CT Scan Report ---
CT SCAN OF THE ABDOMEN AND PELVIS WITH IV CONTRAST CLINICAL HISTORY: Epigastric abdominal pain. COMPARISON STUDY: No priors. TECHNIQUE: Following the IV administration of 93 cc of Optiray 320, CT scan of the abdomen and pelvi s is performed from the lung bases to the proximal femora. Images are reviewed in the axial, sagittal , and coronal planes. IV contrast was administered without complication. Oral contrast was utilized. A dose lowering technique was utilized adhering to the principles of ALARA. CT DOSE: 263.95 mGy.cm FINDINGS: Lung bases: The heart is top normal in size and without pericardial effusion. Advanced emphysematous change is noted. There is bibasilar scarring/atelectasis. No airspace consolidation or pleural effusi on is seen at the lung bases. Pleural calcification is noted at the right lung base. There is a tiny hiatal hernia. Liver: The contrast-enhanced liver is normal in size, contour, and attenuation. There is no intrahepa tic biliary ductal dilatation. The hepatic veins and portal veins are patent. Gallbladder: Surgically absent noting clips in the gallbladder fossa. Spleen: Normal in size and attenuation. Pancreas: Atrophic and grossly unremarkable. Adrenal glands: Unremarkable. Kidneys: The contrast enhanced kidneys are atrophic and without hydronephrosis. The kidneys enhance s ymmetrically. Scattered subcentimeter cortical hypodensities likely represent cysts but are too small for definitive characterization. Abdominal vasculature: The abdominal aorta is normal in course and caliber noting moderate to advance d atherosclerotic calcification. Bowel: There is moderate colonic diverticulosis without CT evidence of acute diverticulitis. Colonic fecal retention is observed. No bowel obstruction is seen. Postoperative change is noted in the right colon. The appendix is surgically absent. Peritoneum: There is no intraperitoneal free air or abdominal ascites. Lymphadenopathy: None. Pelvic viscera: The bladder is decompressed and not well evaluated. The uterus and adnexa are normal as visualized. Postoperative change is noted in the groin bilaterally. Skeletal structures: The skeletal structures are osteopenic. There is advanced lumbosacral spondylosi s and scoliosis. A large hemangioma is seen in the body of L3. No lytic or blastic lesions are seen. There are healed bilateral pubic ring fractures. There are healed left-sided rib fractures. There are bilateral sacral insufficiency fractures. IMPRESSION: 1. There are no acute infectious or inflammatory findings in the abdomen or pelvis. 2. Cardiomegaly and emphysema. 3. Moderate colonic diverticulosis without CT evidence of acute diverticulitis. 4. There are age indeterminant bilateral sacral insufficiency fractures as well as healed bilateral p ubic ring fractures. 5. Additional findings as above. Electronically signed by: Thien Alaniz M.D. 04/04/2018 4:11 PM
[2018-04-04] MEDS ORDERED: VANCOMYCIN CONSULT ACTIVE PRN (16:47)
[2018-04-04] MEDS ORDERED: VANCOMYCIN HCL 1,250 MG in SODIUM CHLORIDE 0.9% 250 ML IV STA (18:27)
--- NOTE | 2018-04-04 19:53 | XRay Report ---
LEFT ELBOW 4 VIEWS CLINICAL HISTORY: Olecranon bursitis. FINDINGS: 4 views of the left elbow are obtained. No prior studies are available for comparison at th e time of dictation. The skeletal structures are osteopenic. No fracture is seen. The joint spaces ar e maintained. An enthesophyte arises from the lateral humeral epicondyle. There is no significant alexandro nt effusion. Significant soft tissue edema is noted, greatest dorsally. No radiodense foreign body is identified. IMPRESSION: 1. No acute osseous abnormality is identified. 2. There is marked dorsal soft tissue edema consistent with the reported history of olecranon bursiti s. Electronically signed by: Thien Alaniz M.D. 04/04/2018 7:52 PM
--- NOTE | 2018-04-04 21:02 | Hospitalist Progress Note ---
Date of Service April 04, 2018 Assessment & Plan (1) Elevated sed rate: >90; CRP also elevated. no symptoms of temporal arteritis no clear-cut symptoms to suggest PMR underlying cancer in light of weight loss? autoimmune? due to left elbow olecrenon bursitis? echo without any vegetations. blood cx's x 2 sets sent. await orthopedic eval for left elbow. Present on Admission?: Yes (2) Olecranon bursitis of left elbow: had the elbow drained about 2 weeks ago in her PCP's office. the elbow felt much better per patient history, but the bursal swelling has come back. she is on celebrex BID chronically and this medication could be partially treating and/or masking the primary process in the bursa. in light of marked sed rate elevation I have asked Dr. Yi from orthopedics to see in consult and eval the left elbow. I am uncertain if the etiology of the bursitis is gout vs septic vs other. as precautionary measure I have added IV vancomycin to cover the bursa as well as the surrounding skin for cellulitis. I don't see evidence of a septic elbow joint as she has excellent ROM of the elbow joint itself. (3) Tachycardia: echo findings consistent with a volume depleted state (I spoke with cardiology about this). start IV fluids. HOLD lasix. HOLD HEMALATHA inhibitor. her volume depleted state is likely playing a role in her fatigue and general constitution. (4) Dyspnea on exertion: CTA chest w/o PEs, pneumonia, etc. emphysematous changes seen but I don't suspect this is the primary cause of WHITING but certainly is likely contributing. WHITING could be restrictive lung disease from scoliosis. WHITING could be undiagnosed CAD. echo w/o wall motion abnormalities. O2 sats in RA at rest and with walking have been acceptable. continue to monitor. (5) Chronic back pain: 2nd to scoliosis. cannot rule out spinal stenosis, etc. treat symptoms for now. refer back to ortho spine after discharge. (6) Leg cramps: checked Fe studies, mag, b12, etc - all wnl. She has muscle wasting of the thighs -- does she have a peripheral neuropathy causing such? consider neurology consult after discharge. (7) Abnormal chest CT: nodules needs outpatient f/u for this in light of prior tobacco use (8) Acquired hypothyroidism: TSH wnl cont synthroid (9) Osteoarthritis of multiple joints: severe OA celebrex BID (10) Fatigue: If ortho feels that the left elbow issues don't explain the elevated sed rate and crp then something else is causing the inflammatory marker rise. I performed a CT abd/pelvis and nothing was found to explain the fatigue. Again no evidence of temporal arteritis or PMR. No spinous process pain to suggest diskitis or abscess of back. could consider rheum evaluation and/or heme-onc evaluation follow blood cultures (11) Abnormal echocardiogram: echo findings c/w volume contracted state hydrate (12) DVT prophylaxis: heparin 5000 BID Subjective patient continues to have weakness, fatigue, and simply doesn't feel well. she has poor appetite today. she has mild pain of the left elbow. again had the elbow bursa drained in her PCP's office about 2-3 weeks ago. was told it was gout but she is not sure if they sent the fluid for analysis. during my visit, despite the weakness, the patient got right out of bed and walked across the room to get something. her dyspnea is about the same as previous. Constitutional: + fatigue; no fever and no chills Respiratory: + dyspnea on exertion; no cough and no wheezing Cardiovascular: no chest pain Gastrointestinal: no abdominal pain Physical Exam 2 Vital Signs (Past 24 Hours): Last Vital Signs Temp 36.7 C 04/04/18 15:46 Pulse 113 H 04/04/18 15:46 Resp 18 04/04/18 07:59 BP 125/64 04/04/18 15:46 Pulse Ox 91 04/04/18 15:46 Constitutional: well developed and well nourished; no acute distress ENMT: external ear and nose normal, oropharynx normal Respiratory: no respiratory distress and does not use accessory muscles Auscultation: + rales (fine, dry, bases only); no rhonchi and no wheezes Cardiovascular: Rate/Rhythm: regular rhythm and + tachycardic Heart Sounds : normal S1 and normal S2; no murmur Vessels: posterior tibial pulses present and dorsalis pedis pulses present; no JVD Chest (Breasts): Additional Comments: distorted, barrel chest appearance Gastrointestinal (Abdomen): normal bowel sounds, soft, nontender, no hepatosplenomegaly Musculoskeletal: left elbow with olecrenon bursitis; only very mild tenderness to palpation of the bursa; left elbow- normal ROM passively and actively. back - severe scoliosis. Skin: mild erythema with warmth over the left elbow olecrenon process Neurologic: significant muscle wasting of thighs, intrinsic muscles of hands, etc. Psychiatric: Orientation: alert and oriented x 3 Affect: + depressed affect Results & Data Laboratory Results Laboratory Results - last 24 hr 04/04/18 04/04/18 05:45 14:49 Sodium 136 Potassium 3.6 Chloride 99 Carbon Dioxide 28 Anion Gap 9.0 BUN 17 Creatinine 0.80 Est Cr Clr Drug Dosing 39.2 Est GFR ( Amer) 83.0 Est GFR (Non-Af Amer) 71.6 BUN/Creatinine Ratio 21.2 H Glucose 91 Uric Acid 5.1 Calcium 9.7 Total Bilirubin 0.4 Direct Bilirubin < 0.1 AST 18 ALT 23 Alkaline Phosphatase 100 C-Reactive Protein 8.03 H Total Protein 7.8 Albumin 2.9 L _ (1) Chronic back pain Back pain location: back pain in unspecified location Back pain laterality: unspecified Qualified Code(s): M54.9 - Dorsalgia, unspecified; G89.29 - Other chronic pain (2) Osteoarthritis of multiple joints Osteoarthritis type: unspecified Qualified Code(s): M15.9 - Polyosteoarthritis, unspecified (3) Fatigue Fatigue type: unspecified Qualified Code(s): R53.83 - Other fatigue
--- NOTE | 2018-04-04 21:57 | Pharmacy Report ---
Pharmacy Abx Dose Short Note - Date of Service April 04, 2018 - Assessment & Plan Assessment 77 year old F receiving IV Vancomycin for treatment of ? cellulitis (indication unclear at this time) Day # 1 of antimicrobial therapy. Plan Vancomycin * Most recent sCr = 0.80 mg/dL, estimated CrCl ~39.2 mL/min. Estimated pharmacokinetic parameters: * Ke ~0.037/hr, T1/2 ~18.7 hrsGive Vancomycin 1250mg (~24 mg/kg) IV x 1 as a loading dose * Initiate Vancomycin 1000mg (~19mg/kg) IV q24 as maintenance regimen * Goal trough level for cellulitis : ~15 mcg/mL * Trough or random level ordered for: 04/06/18 @ 1330 (only prior to 2nd dose and therefore not reflective of steady state, but would like to assess dosing regimen earlier) Pharmacy will continue to follow and will adjust dose/frequency as necessary. Thank you.
[2018-04-04] MEDS ORDERED: guaiFENesin 600 MG TABCR PO PRN (22:09)
[2018-04-04] MEDS: MECLIZINE HCL 25 MG TAB PO PRN (22:19)
[2018-04-05] MEDS: LEVOTHYROXINE SODIUM 100 MCG TABLET PO SCH (05:41)
[2018-04-05] MEDS: ACETAMINOPHEN 325 MG TAB PO PRN (05:43)
[2018-04-05] MEDS: SODIUM CHLORIDE 0.9% 1000ML 1,000 ML IV SCH ×2 (05:44→19:34)
[2018-04-05 06:46] LABS: Hematocrit (blood only) 35.1 % (37-47); Hemoglobin 11.3 g/dL (12.0-16.0); Mean Corpuscular Hgb Conc 32.2 g/dL (32-36); Mean Corpuscular Volume 93.6 fL (80-100); Mean Platelet Volume 8.9 fL (7.4-10.4); Platelet Count 421 K/uL (130-400); RDW Coefficient of Variation 14.8 % (11.5-14.5); RDW Standard Deviation 51.1 fL (36.4-46.3); Red Blood Count 3.75 M/uL (4.2-5.4); White Blood Count 7.67 K/uL (4.8-10.8)
[2018-04-05 07:14] LABS: BUN Creatinine Ratio 17.9 (10-20); Calcium 8.6 mg/dl (8.5-10.1); Creatinine Clr Calc Pharmacy 38.2 ml/min; Est GFR (African American) 80.6; Est GFR (Non-African American) 69.5
[2018-04-05] MEDS: POTASSIUM CHLORIDE 10 MEQ TABCR PO SCH (07:45)
[2018-04-05] MEDS: CHOLECALCIFEROL 1,000 UNITS TAB PO SCH (07:45)
[2018-04-05] MEDS: CALCIUM CARBONATE 1250MG TAB PO SCH (07:46)
[2018-04-05] MEDS: CeleBREX 200 MG CAP PO SCH ×2 (07:46→21:02)
[2018-04-05] MEDS: PANTOprazole 40 MG TAB PO SCH (07:47)
[2018-04-05] MEDS: DICLOFENAC SOD 1% GEL 100 GM TUBE EXT SCH ×4 (07:47→21:03)
[2018-04-05] MEDS: TRAMADOL HCL 50 MG TABLET PO PRN ×2 (07:49→13:39)
[2018-04-05] MEDS: HEPARIN SOD 5,000 UNIT/0.5 ML VIAL SQ SCH ×2 (07:51→21:01)
[2018-04-05] MEDS ORDERED: ETHYL CHLORIDE AER SPR 100 ML CAN EXT ONE (11:00)
[2018-04-05] MEDS: VANCOMYCIN HCL 1,000 MG in SODIUM CHLORIDE 0.9% 250 ML IV SCH (13:41)
--- NOTE | 2018-04-05 14:03 | Orthopedic Consultation ---
Date of Consultation April 05, 2018 Assessment & Plan (1) Olecranon bursitis of left elbow: Olecranon bursitis left elbow. Elbow was sterilely prepped with Betadine and aspirated for about 3-4 cc of jessica appearing fluid. No purulence noted. Fluid was sent for analysis and cultures. Gauze bandage and Willard wrap was applied. This can be changed tomorrow and a Willard wrap reapplied as needed for swelling. No leaning on left elbow. If cultures negative can ice the elbow and continue on Celebrex. Could consider steroid injection as an outpatient if has recurrent swelling and no infection identified. History of Present Illness Attending Physician: Maninder Barbosa DO History of Present Illness 77-year-old female admitted for respiratory issues. History of swollen olecranon bursa on left elbow. Patient has scab on her left elbow and was seen in her family physician's office and had the scab removed and fluid expressed out of her elbow olecranon bursa. Fluid returned to some extent. Patient does not have any pain in her elbow joint per se. Patient has no fever or chills. She is on Celebrex. Patient's tried to avoid leaning on that elbow as instructed. Allergies Allergy/AdvReac Type Severity Reaction Status Date / Time Eftjraa-Ano-Hvt Reductase Allergy Intermediate Muscle Pain Verified 04/02/18 17: 30 Inhibitor UNKNOWN ANTIBIOTICS Allergy Unknown CAN'T Uncoded 04/02/18 17:30 REMEMBER Home Medications Home Medications Medication Instructions Recorded Confirmed Type calcium carbonate [Calcium 600] 600 mg PO DAILY 04/02/18 04/02/18 History celecoxib [Celebrex] 200 mg PO BID 04/02/18 04/02/18 History cholecalciferol (vitamin D3) 2,000 unit PO DAILY 04/02/18 04/02/18 History [Vitamin D3] diazepam 5 mg PO DAILY 04/02/18 04/02/18 History esomeprazole magnesium 40 mg PO DAILY 04/02/18 04/02/18 History furosemide [Lasix] 20 mg PO DAILY 04/02/18 04/02/18 History hydrocodone-acetaminophen 1 tab PO Q6H PRN 04/02/18 04/02/18 History levothyroxine [Synthroid] 100 mcg PO DAILY 04/02/18 04/02/18 History lisinopril 5 mg PO HS 04/02/18 04/02/18 History meclizine 25 mg PO TID PRN 04/02/18 04/02/18 History potassium chloride 10 meq PO DAILY 04/02/18 04/02/18 History tramadol 50 mg PO Q4 PRN 04/02/18 04/02/18 History vit C-rut-hesp cmp-bioflav,cit 1 tab PO DAILY 04/02/18 04/02/18 History [Special C] Patient History Medical History GERD (gastroesophageal reflux disease) Social History Current Living Situation: Spouse Other Information That Helps Us Care for You: No Feels Safe at Home: Yes Safety Concerns: Feels Safe At This Time Smoking Status: Former smoker Do You Dip or Chew Tobacco: No Smoking End Date: 1994 Hx Alcohol Use: No Hx Substance Use: No Beliefs That Will Affect Care: Scientology Scientology Beliefs: Pentec[employer]al Communication Ability: Effective Review of Systems Patient has chronic pain in her left shoulder due to end-stage [id number] osteoarthritis of the left shoulder. Patient does not have any elbow joint pain on her left denies any other extremity discomfort. Physical Exam 2 Vital Signs (Past 24 Hours): Last Vital Signs Temp 36.9 C 04/05/18 06:44 Pulse 85 04/05/18 06:44 Resp 18 04/05/18 06:44 BP 111/70 04/05/18 06:44 Pulse Ox 94 04/05/18 06:44 Physical Exam: There is a healed scab over the left olecranon bursa. There is some swelling olecranon bursa and extends down about 5-6 cm along the posterior aspect of the ulna subcutaneous area where there is some fluid there as well. She has no elbow joint effusion. There is mild increased warmth there is no erythema. There is no evidence of any lymphangitis. Neurological exam is intact. Circulation is normal. Left shoulder is [id number] crepitation with any positioning of her arm. Results & Data Laboratory Results White blood cell count 7.67, uric acid level 5.1, CRP 8 Diagnostic Findings Imaging of the left elbow demonstrates posterior soft tissue swelling over the olecranon and forearm and normal elbow joint no effusion no bony abnormalities
[2018-04-05 14:41] LABS: Color Body Fluid AMBER; Mononuclear WBC Body Fluid 6.3 %; Polynuclear WBC Body Fluid 93.7 %; RBC Body Fluid (A) 13000 /uL; WBC Body Fluid (A) 7358 /uL
--- NOTE | 2018-04-05 15:02 | Hospitalist Progress Note ---
Date of Service April 05, 2018 Assessment & Plan (1) Elevated sed rate: >90; CRP also elevated. no symptoms of temporal arteritis no clear-cut symptoms to suggest PMR suspect it is due to olecranon bursitis but seems quite high will repeat tomorrow now that bursa drained echo without any vegetations. blood cx's x 2 sets sent. (2) Olecranon bursitis of left elbow: had the elbow drained about 2 weeks ago in her PCP's office. the elbow felt much better per patient history, but the bursal swelling has come back. she is on celebrex BID chronically and this medication could be partially treating and/or masking the primary process in the bursa. elbow warm and red, tender, continue Vancomycin 3-4cc of jessica colored fluid aspirated by Dr. Flores on 04/05 sent for analysis (crystals, culture) can ice the elbow, use luisa wrap for swelling, no leaning on elbow could consider steroid injections as outpatient if there is no infection (3) Tachycardia: HR stable after volume status normalized (4) Dyspnea on exertion: CTA chest w/o PEs, pneumonia, etc. emphysematous changes seen but I don't suspect this is the primary cause of WHITING but certainly is likely contributing. WHITING could be restrictive lung disease from scoliosis. WHITING could be undiagnosed CAD. echo w/o wall motion abnormalities. O2 sats in RA at rest and with walking have been acceptable. can follow up outpatient (5) Chronic back pain: 2nd to scoliosis. cannot rule out spinal stenosis, etc. treat symptoms for now. refer back to ortho spine after discharge. (6) Leg cramps: checked Fe studies, mag, b12, etc - all wnl. She has muscle wasting of the thighs -- does she have a peripheral neuropathy causing such? consider neurology consult after discharge. no further work up inpatient (7) Abnormal chest CT: nodules needs outpatient f/u for this in light of prior tobacco use (8) Acquired hypothyroidism: TSH wnl cont synthroid (9) Osteoarthritis of multiple joints: severe OA celebrex BID (10) Fatigue: CT abd/pelvis and nothing was found to explain the fatigue. Again no evidence of temporal arteritis or PMR. No spinous process pain to suggest diskitis or abscess of back. could consider rheum evaluation and/or heme-onc evaluation but would do this as outpatient (11) Abnormal echocardiogram: echo findings c/w volume contracted state hydrate (12) DVT prophylaxis: heparin 5000 BID Subjective patient sitting up in chair, eating lunch reports that her left elbow is slightly tender, pain not severe can move elbow through full range of motion appreciate ortho consultation, aspirated 3-4cc of fluid, sent for culture patient pleasant, no other complaints other than elbow Review of Systems All systems reviewed & are unremarkable except as noted in HPI & below Musculoskeletal: + joint pain (left elbow) and + swelling (left elbow olecranon bursa) Physical Exam 2 Vital Signs (Past 24 Hours): Last Vital Signs Temp 36.9 C 04/05/18 06:44 Pulse 85 04/05/18 06:44 Resp 18 04/05/18 06:44 BP 111/70 04/05/18 06:44 Pulse Ox 94 04/05/18 06:44 Constitutional: WD/WN, vitals as above Eyes: PERRL, conjunctivae normal, anicteric sclerae ENMT: external ear and nose normal, oropharynx normal Neck: trachea midline, no thyromegaly Respiratory: normal respiratory effort, lungs clear to auscultation Cardiovascular: RRR, no murmur, no edema Gastrointestinal (Abdomen): normal bowel sounds, soft, nontender, no hepatosplenomegaly Musculoskeletal: no cyanosis or clubbing, extremities motor strength 5/5 Extremities: + extremities abnormal to inspection (left elbow bursa swollen, tender to palpation, hot to palpation) Skin: no rashes, warm and dry Neurologic: patellar DTR's 2+ bilat, sensation intact and PERRL, EOMI, accommodation nl, no face palsy, no dysarthria Psychiatric: A+Ox3, euthymic affect Lymphatic: no cervical or axillary lymphadenopathy Results & Data Laboratory Results Laboratory Results - last 24 hr 04/04/18 04/05/18 04/05/18 14:49 06:16 06:16 WBC 7.67 RBC 3.75 L Hgb 11.3 L Hct 35.1 L MCV 93.6 MCH 30.1 MCHC 32.2 RDW Std Deviation 51.1 H RDW Coeff of Pamela 14.8 H Plt Count 421 H MPV 8.9 Sodium 134 L Potassium 4.0 Chloride 101 Carbon Dioxide 25 Anion Gap 8.0 BUN 15 Creatinine 0.82 Est Cr Clr Drug Dosing 38.2 Est GFR ( Amer) 80.6 Est GFR (Non-Af Amer) 69.5 BUN/Creatinine Ratio 17.9 Glucose 85 Uric Acid 5.1 Calcium 8.6 Total Bilirubin 0.4 Direct Bilirubin < 0.1 AST 18 ALT 23 Alkaline Phosphatase 100 C-Reactive Protein 8.03 H Total Protein 7.8 Albumin 2.9 L Fluid Color Fluid Appearance Fluid WBC Fluid RBC Fluid Polynuclear WBCs Fluid Mononuclear WBCs 04/05/18 13:39 WBC RBC Hgb Hct MCV MCH MCHC RDW Std Deviation RDW Coeff of Pamela Plt Count MPV Sodium Potassium Chloride Carbon Dioxide Anion Gap BUN Creatinine Est Cr Clr Drug Dosing Est GFR ( Amer) Est GFR (Non-Af Amer) BUN/Creatinine Ratio Glucose Uric Acid Calcium Total Bilirubin Direct Bilirubin AST ALT Alkaline Phosphatase C-Reactive Protein Total Protein Albumin Fluid Color JESSICA Fluid Appearance CLOUDY Fluid WBC 7358 Fluid RBC 80799 Fluid Polynuclear WBCs 93.7 Fluid Mononuclear WBCs 6.3 Medications Administered Current Inpatient Medications Acetaminophen (Tylenol) 650 mg PO Q4H PRN PRN Reason: pain/fever Stop: 05/02/18 23:28 Last Admin: 04/05/18 05:43 Dose: 650 mg Hydrocodone Bitart/Acetaminophen ([place] 5/325) 1 tab PO Q6H PRN PRN Reason: Pain Stop: 04/16/18 23:28 Al Hydrox/Mg Hydrox/Simethicone (Maalox) 30 ml PO Q6H PRN PRN Reason: Dyspepsia Stop: 05/02/18 23:28 Albuterol (Duoneb) 3 ml NEB Q4R PRN PRN Reason: Dyspnea Stop: 05/02/18 23:28 Calcium Carbonate (Os-Valentino 500) 1,250 mg PO DAILY [facility] Stop: 05/03/18 08:59 Last Admin: 04/05/18 07:46 Dose: 1,250 mg Celecoxib (Celebrex) 200 mg PO BID [facility] Stop: 05/03/18 08:59 Last Admin: 04/05/18 07:46 Dose: 200 mg Diazepam (Valium) 5 mg PO DAILY PRN PRN Reason: leg cramps Stop: 05/02/18 23:28 Last Admin: 04/03/18 04:01 Dose: 5 mg Diclofenac Sodium (Voltaren 1% Top) 4 appln EXT QID [facility] Stop: 05/03/18 12:59 Last Admin: 04/05/18 13:41 Dose: 4 appln Furosemide (Lasix) 20 mg PO DAILY [facility] Stop: 05/03/18 08:59 Last Admin: 04/04/18 07:49 Dose: 20 mg Guaifenesin (Mucinex) 600 mg PO Q12 PRN PRN Reason: Cough Stop: 05/05/18 08:59 Last Admin: 04/05/18 07:47 Dose: 600 mg Heparin Sodium (Porcine) (Heparin Sodium (Porcine)) 5,000 units SQ Q12 [facility] Stop: 05/05/18 08:59 Last Admin: 04/05/18 07:51 Dose: Not Given Sodium Chloride (Nss 1000ml) 1,000 mls @ 80 mls/hr IV .[id number] [facility] Stop: 05/04/18 13:59 Last Admin: 04/05/18 05:44 Dose: 80 mls/hr Vancomycin HCl 1,000 mg/ (Sodium Chloride) 270 mls @ 125 mls/hr IV DAILY@1400 [facility] Stop: 04/14/18 13:59 Last Admin: 04/05/18 13:41 Dose: 125 mls/hr Ioversol (Optiray 320 100ml) 93 ml IV ONCE PRN PRN Reason: Interaction Checking Stop: 04/08/18 15:59 Last Admin: 04/04/18 16:01 Dose: 93 ml Levothyroxine Sodium (Synthroid) 100 mcg PO DAILYBB [facility] Stop: 05/03/18 06:29 Last Admin: 04/05/18 05:41 Dose: 100 mcg Lisinopril (Zestril) 5 mg PO HS [facility] Stop: 05/03/18 20:59 Last Admin: 04/03/18 20:37 Dose: 5 mg Magnesium Hydroxide (Milk Of Magnesia) 30 ml PO Q6H PRN PRN Reason: Constipation Stop: 05/02/18 23:28 Meclizine HCl (Antivert) 25 mg PO TID PRN PRN Reason: Dizziness Stop: 05/02/18 23:28 Last Admin: 04/04/18 22:19 Dose: 25 mg Miscellaneous Information (Consult) 1 ea N/A UD PRN PRN Reason: Consult Stop: 05/04/18 16:46 Ondansetron HCl (Zofran) 4 mg IV Q6H PRN PRN Reason: Nausea Stop: 05/02/18 23:28 Pantoprazole Sodium (Protonix) 40 mg PO DAILY [facility] Stop: 05/03/18 08:59 Last Admin: 04/05/18 07:47 Dose: 40 mg Polyethylene Glycol (Miralax Powder Packet) 17 gm PO DAILY PRN PRN Reason: Constipation Stop: 05/02/18 23:28 Potassium Chloride (Klor-Con M10) 10 meq PO DAILY [facility] Stop: 05/03/18 08:59 Last Admin: 04/05/18 07:45 Dose: 10 meq Tramadol HCl (Ultram) 50 mg PO Q4 PRN PRN Reason: Pain Stop: 05/02/18 23:28 Last Admin: 04/05/18 13:39 Dose: 50 mg Tramadol HCl (Ultram) 100 mg PO Q12 [facility] Stop: 05/05/18 20:59 Vitamin D (Vitamin D3) 2,000 units PO DAILY [facility] Stop: 05/03/18 08:59 Last Admin: 04/05/18 07:45 Dose: 2,000 units _ (1) Chronic back pain Back pain location: back pain in unspecified location Back pain laterality: unspecified Sciatica presence: Sciatica laterality: Qualified Code(s): M54.9 - Dorsalgia, unspecified; G89.29 - Other chronic pain (2) Osteoarthritis of multiple joints Osteoarthritis type: unspecified Qualified Code(s): M15.9 - Polyosteoarthritis, unspecified (3) Fatigue Fatigue type: unspecified Encounter type: Trimester: Qualified Code(s): R53.83 - Other fatigue
[2018-04-05 15:08] LABS: Source Body Fluid ELBOW
[2018-04-05] MEDS: MECLIZINE HCL 25 MG TAB PO PRN ×2 (18:07→23:47)
[2018-04-05] MEDS: TRAMADOL HCL 50 MG TABLET PO SCH (21:01)
[2018-04-06] MEDS: LEVOTHYROXINE SODIUM 100 MCG TABLET PO SCH (05:55)
[2018-04-06] MEDS: SODIUM CHLORIDE 0.9% 1000ML 1,000 ML IV SCH (07:09)
[2018-04-06 07:22] LABS: Basophils # (auto) 0.01 K/uL (0-0.2); Basophils % (auto) 0.1 %; Eosinophils # (auto) 0.22 K/uL (0-0.5); Eosinophils % (auto) 2.9 %; Hematocrit (blood only) 34.2 % (37-47); Hemoglobin 10.9 g/dL (12.0-16.0); Immature Granulocytes # (auto) 0.05 K/uL (0.00-0.02); Immature Granulocytes % (auto) 0.7 %; Lymphocytes # (auto) 0.99 K/uL (1.2-3.4); Lymphocytes % (auto) 13.2 %; Mean Corpuscular Hgb Conc 31.9 g/dL (32-36); Mean Corpuscular Volume 94.7 fL (80-100); Mean Platelet Volume 8.6 fL (7.4-10.4); Monocytes # (auto) 0.83 K/uL (0.11-0.59); Monocytes % (auto) 11.1 %; Neutrophils # (auto) 5.38 K/uL (1.4-6.5); Platelet Count 435 K/uL (130-400); RDW Coefficient of Variation 14.7 % (11.5-14.5); RDW Standard Deviation 50.7 fL (36.4-46.3); Red Blood Count 3.61 M/uL (4.2-5.4); White Blood Count 7.48 K/uL (4.8-10.8)
[2018-04-06 07:55] LABS: BUN Creatinine Ratio 13.3 (10-20); C Reactive Protein 7.69 mg/dl (0-0.29); Calcium 8.8 mg/dl (8.5-10.1); Creatinine Clr Calc Pharmacy 38.2 ml/min; Est GFR (African American) 80.6; Est GFR (Non-African American) 69.5; Potassium 3.8 mmol/L (3.5-5.1)
[2018-04-06] MEDS: CeleBREX 200 MG CAP PO SCH ×2 (09:21→20:33)
[2018-04-06] MEDS: CALCIUM CARBONATE 1250MG TAB PO SCH (09:21)
[2018-04-06] MEDS: CHOLECALCIFEROL 1,000 UNITS TAB PO SCH (09:21)
[2018-04-06] MEDS: PANTOprazole 40 MG TAB PO SCH (09:21)
[2018-04-06] MEDS: POTASSIUM CHLORIDE 10 MEQ TABCR PO SCH (09:22)
[2018-04-06] MEDS: DICLOFENAC SOD 1% GEL 100 GM TUBE EXT SCH ×4 (09:22→20:33)
[2018-04-06] MEDS: TRAMADOL HCL 50 MG TABLET PO SCH ×3 (09:26→19:06)
[2018-04-06] MEDS: HEPARIN SOD 5,000 UNIT/0.5 ML VIAL SQ SCH ×3 (09:27→20:32)
--- NOTE | 2018-04-06 13:10 | Hospitalist Progress Note ---
Date of Service April 06, 2018 Assessment & Plan (1) Elevated sed rate: >90; CRP also elevated. no symptoms of temporal arteritis no clear-cut symptoms to suggest PMR suspect it is due to olecranon bursitis given the infection also, given the fact that elbow was swollen 2 weeks ago this would explain chronic inflammation echo without any vegetations. blood cx's x 2 sets sent - no growth (2) Olecranon bursitis of left elbow: had the elbow drained about 2 weeks ago in her PCP's office. the elbow felt much better per patient history, but the bursal swelling has come back. she is on celebrex BID chronically and this medication could be partially treating and/or masking the primary process in the bursa. elbow warm and red, tender, continue Vancomycin 3-4cc of jessica colored fluid aspirated by Dr. Flores on 04/05 no crystals seen gram stain showed many WBC, rare gram positive cocci culture growing staph aureus, awaiting sensitivities consult ID for abx recommendations going forward can ice the elbow, use luisa wrap for swelling, no leaning on elbow (3) Tachycardia: HR stable after volume status normalized stop IV fluids today (4) Dyspnea on exertion: CTA chest w/o PEs, pneumonia, etc. emphysematous changes seen but I don't suspect this is the primary cause of WHITING but certainly is likely contributing. WHITING could be restrictive lung disease from scoliosis. WHITING could be undiagnosed CAD. echo w/o wall motion abnormalities. O2 sats in RA at rest and with walking have been acceptable. can follow up outpatient (5) Chronic back pain: 2nd to scoliosis. cannot rule out spinal stenosis, etc. treat symptoms for now. refer back to ortho spine after discharge. (6) Leg cramps: checked Fe studies, mag, b12, etc - all wnl. She has muscle wasting of the thighs -- does she have a peripheral neuropathy causing such? consider neurology consult after discharge. no further work up inpatient (7) Abnormal chest CT: nodules needs outpatient f/u for this in light of prior tobacco use (8) Acquired hypothyroidism: TSH wnl cont synthroid (9) Osteoarthritis of multiple joints: severe OA celebrex BID (10) Fatigue: CT abd/pelvis and nothing was found to explain the fatigue. Again no evidence of temporal arteritis or PMR. No spinous process pain to suggest diskitis or abscess of back. could consider rheum evaluation and/or heme-onc evaluation but would do this as outpatient (11) Abnormal echocardiogram: echo findings c/w volume contracted state hydrate (12) DVT prophylaxis: heparin 5000 BID plan: follow up on ID recommendations can likely go home tomorrow with ortho follow up if no further interventions required Subjective patient doing well, laying in bed, says she is walking around the room a little more today left elbow is not sore reviewed synovial fluid results, no crystals seen, many WBCs and few bacteria on culture it is growing Staph aureus, sensitivities to follow explained that we will ask ID to comment on type and duration of antibiotics not sure if any further I&D would be needed since only 3-4cc of fluid able to be removed ortho following no other complaints reviewed labs, ESR and CRP remain elevated WBC normal, BMP normal Review of Systems All systems reviewed & are unremarkable except as noted in HPI & below Constitutional: + fatigue and + weakness Musculoskeletal: + joint pain (left elbow) and + swelling (left olecranon bursa) Physical Exam 2 Vital Signs (Past 24 Hours): Last Vital Signs Temp 36.8 C 04/06/18 07:00 Pulse 91 H 04/06/18 07:00 Resp 16 04/06/18 07:00 BP 130/81 04/06/18 07:00 Pulse Ox 91 04/06/18 07:00 Constitutional: WD/WN, vitals as above Eyes: PERRL, conjunctivae normal, anicteric sclerae ENMT: external ear and nose normal, oropharynx normal Neck: trachea midline, no thyromegaly Respiratory: normal respiratory effort, lungs clear to auscultation Cardiovascular: RRR, no murmur, no edema Gastrointestinal (Abdomen): normal bowel sounds, soft, nontender, no hepatosplenomegaly Musculoskeletal: no cyanosis or clubbing, extremities motor strength 5/5 Extremities: + extremities abnormal to inspection (left elbow wrapped tightly with luisa wrap) Skin: no rashes, warm and dry Neurologic: patellar DTR's 2+ bilat, sensation intact and PERRL, EOMI, accommodation nl, no face palsy, no dysarthria Psychiatric: A+Ox3, euthymic affect Lymphatic: no cervical or axillary lymphadenopathy Results & Data Laboratory Results Laboratory Results - last 24 hr 04/05/18 04/06/18 04/06/18 13:39 07:09 07:09 WBC 7.48 RBC 3.61 L Hgb 10.9 L Hct 34.2 L MCV 94.7 MCH 30.2 MCHC 31.9 L RDW Std Deviation 50.7 H RDW Coeff of Pamela 14.7 H Plt Count 435 H MPV 8.6 Immature Gran % (Auto) 0.7 Neut % (Auto) 72.0 Lymph % (Auto) 13.2 [place] % (Auto) 11.1 Eos % (Auto) 2.9 Baso % (Auto) 0.1 Immature Gran # (Auto) 0.05 H Neut # (Auto) 5.38 Lymph # (Auto) 0.99 L [place] # (Auto) 0.83 H Eos # (Auto) 0.22 Baso # (Auto) 0.01 ESR 81 H Sodium Potassium Chloride Carbon Dioxide Anion Gap BUN Creatinine Est Cr Clr Drug Dosing Est GFR ( Amer) Est GFR (Non-Af Amer) BUN/Creatinine Ratio Glucose Calcium C-Reactive Protein Fluid Source ELBOW Fluid Color JESSICA Fluid Appearance CLOUDY Fluid WBC 7358 Fluid RBC 27458 Fluid Polynuclear WBCs 93.7 Fluid Mononuclear WBCs 6.3 Synovial Crystals 04/06/18 07:09 WBC RBC Hgb Hct MCV MCH MCHC RDW Std Deviation RDW Coeff of Pamela Plt Count MPV Immature Gran % (Auto) Neut % (Auto) Lymph % (Auto) [place] % (Auto) Eos % (Auto) Baso % (Auto) Immature Gran # (Auto) Neut # (Auto) Lymph # (Auto) [place] # (Auto) Eos # (Auto) Baso # (Auto) ESR Sodium 139 Potassium 3.8 Chloride 106 Carbon Dioxide 25 Anion Gap 8.0 BUN 11 Creatinine 0.82 Est Cr Clr Drug Dosing 38.2 Est GFR ( Amer) 80.6 Est GFR (Non-Af Amer) 69.5 BUN/Creatinine Ratio 13.3 Glucose 80 Calcium 8.8 C-Reactive Protein 7.69 H Fluid Source Fluid Color Fluid Appearance Fluid WBC Fluid RBC Fluid Polynuclear WBCs Fluid Mononuclear WBCs Synovial Crystals Microbiology 04/05/18 13:39 Elbow,Left Gram Stain - Final 04/05/18 13:39 Elbow,Left Aerobic and Anaerobic Culture - Preliminary Staphylococcus aureus 04/04/18 14:57 Blood Blood Culture - Preliminary No growth to date. 04/04/18 14:49 Blood Blood Culture - Preliminary No growth to date. Medications Administered Current Inpatient Medications Acetaminophen (Tylenol) 650 mg PO Q4H PRN PRN Reason: pain/fever Stop: 05/02/18 23:28 Last Admin: 04/05/18 05:43 Dose: 650 mg Hydrocodone Bitart/Acetaminophen ([place] 5/325) 1 tab PO Q6H PRN PRN Reason: Pain Stop: 04/16/18 23:28 Al Hydrox/Mg Hydrox/Simethicone (Maalox) 30 ml PO Q6H PRN PRN Reason: Dyspepsia Stop: 05/02/18 23:28 Albuterol (Duoneb) 3 ml NEB Q4R PRN PRN Reason: Dyspnea Stop: 05/02/18 23:28 Calcium Carbonate (Os-Valentino 500) 1,250 mg PO DAILY [facility] Stop: 05/03/18 08:59 Last Admin: 04/06/18 09:21 Dose: 1,250 mg Celecoxib (Celebrex) 200 mg PO BID [facility] Stop: 05/03/18 08:59 Last Admin: 04/06/18 09:21 Dose: 200 mg Diazepam (Valium) 5 mg PO DAILY PRN PRN Reason: leg cramps Stop: 05/02/18 23:28 Last Admin: 04/03/18 04:01 Dose: 5 mg Diclofenac Sodium (Voltaren 1% Top) 4 appln EXT QID [facility] Stop: 05/03/18 12:59 Last Admin: 04/06/18 12:15 Dose: 4 appln Furosemide (Lasix) 20 mg PO DAILY [facility] Stop: 05/03/18 08:59 Last Admin: 04/04/18 07:49 Dose: 20 mg Guaifenesin (Mucinex) 600 mg PO Q12 PRN PRN Reason: Cough Stop: 05/05/18 08:59 Last Admin: 04/05/18 07:47 Dose: 600 mg Heparin Sodium (Porcine) (Heparin Sodium (Porcine)) 5,000 units SQ Q12 [facility] Stop: 05/05/18 08:59 Last Admin: 04/06/18 09:34 Dose: Not Given Vancomycin HCl 1,000 mg/ (Sodium Chloride) 270 mls @ 125 mls/hr IV DAILY@1400 [facility] Stop: 04/14/18 13:59 Last Infusion: 04/05/18 15:56 Dose: Infused Ioversol (Optiray 320 100ml) 93 ml IV ONCE PRN PRN Reason: Interaction Checking Stop: 04/08/18 15:59 Last Admin: 04/04/18 16:01 Dose: 93 ml Levothyroxine Sodium (Synthroid) 100 mcg PO DAILYBB [facility] Stop: 05/03/18 06:29 Last Admin: 04/06/18 05:55 Dose: 100 mcg Lisinopril (Zestril) 5 mg PO HS [facility] Stop: 05/03/18 20:59 Last Admin: 04/03/18 20:37 Dose: 5 mg Magnesium Hydroxide (Milk Of Magnesia) 30 ml PO Q6H PRN PRN Reason: Constipation Stop: 05/02/18 23:28 Meclizine HCl (Antivert) 25 mg PO TID PRN PRN Reason: Dizziness Stop: 05/02/18 23:28 Last Admin: 04/05/18 23:47 Dose: 25 mg Miscellaneous Information (Consult) 1 ea N/A UD PRN PRN Reason: Consult Stop: 05/04/18 16:46 Ondansetron HCl (Zofran) 4 mg IV Q6H PRN PRN Reason: Nausea Stop: 05/02/18 23:28 Pantoprazole Sodium (Protonix) 40 mg PO DAILY [facility] Stop: 05/03/18 08:59 Last Admin: 04/06/18 09:21 Dose: 40 mg Polyethylene Glycol (Miralax Powder Packet) 17 gm PO DAILY PRN PRN Reason: Constipation Stop: 05/02/18 23:28 Potassium Chloride (Klor-Con M10) 10 meq PO DAILY [facility] Stop: 05/03/18 08:59 Last Admin: 04/06/18 09:22 Dose: 10 meq Tramadol HCl (Ultram) 50 mg PO Q4 PRN PRN Reason: Pain Stop: 05/02/18 23:28 Last Admin: 04/05/18 13:39 Dose: 50 mg Tramadol HCl (Ultram) 100 mg PO Q12 [facility] Stop: 05/05/18 20:59 Last Admin: 04/06/18 09:26 Dose: 100 mg Vitamin D (Vitamin D3) 2,000 units PO DAILY [facility] Stop: 05/03/18 08:59 Last Admin: 04/06/18 09:21 Dose: 2,000 units _ (1) Chronic back pain Back pain location: back pain in unspecified location Back pain laterality: unspecified Sciatica presence: Sciatica laterality: Qualified Code(s): M54.9 - Dorsalgia, unspecified; G89.29 - Other chronic pain (2) Osteoarthritis of multiple joints Osteoarthritis type: unspecified Qualified Code(s): M15.9 - Polyosteoarthritis, unspecified (3) Fatigue Fatigue type: unspecified Encounter type: Trimester: Qualified Code(s): R53.83 - Other fatigue
[2018-04-06] MEDS ORDERED: VANCOMYCIN TROUGH ONE (13:30)
--- NOTE | 2018-04-06 14:06 | Infectious Disease Consult ---
Date of Consultation April 06, 2018 Assessment & Plan (1) Olecranon bursitis of left elbow: continue vanco for now, follow final cultures, duration in range of 21 days History of Present Illness Attending Physician: Maninder Barbosa DO pt admitted with ongoing WHITING from PCP office. was recently hospitalized in [facility] for same. ct chest negative in ER, ct abd/pelivs negative for acute findings as well. afebrile. found to have elevated inflammatory markers on admission. swelling and pain in left elbow, per chart recent outpt aspiration. Ortho eval, bedside aspiration on 04/05 - cultures growing S. aureus, final pending. 04/04 blood cultures negative to date. currently min pain in elbow, dressing intact, c/o continue swelling and fluid in elbow. no drainage. no f/c. tolerating vanco well. creat nml. aspirate fluid with 7358 wbc and 94% neutrophils. oob to chair on my exam, ice on elbow. sob much improved, denies cough, wheeze, no cp. no abd pain, no n/v/d. Allergies Allergy/AdvReac Type Severity Reaction Status Date / Time [id number] Reductase Allergy Intermediate Muscle Pain Verified 04/02/18 17: 30 Inhibitor UNKNOWN ANTIBIOTICS Allergy Unknown CAN'T Uncoded 04/02/18 17:30 REMEMBER Home Medications Home Medications Medication Instructions Recorded Confirmed Type calcium carbonate [Calcium 600] 600 mg PO DAILY 04/02/18 04/02/18 History celecoxib [Celebrex] 200 mg PO BID 04/02/18 04/02/18 History cholecalciferol (vitamin D3) 2,000 unit PO DAILY 04/02/18 04/02/18 History [Vitamin D3] diazepam 5 mg PO DAILY 04/02/18 04/02/18 History esomeprazole magnesium 40 mg PO DAILY 04/02/18 04/02/18 History furosemide [Lasix] 20 mg PO DAILY 04/02/18 04/02/18 History hydrocodone-acetaminophen 1 tab PO Q6H PRN 04/02/18 04/02/18 History levothyroxine [Synthroid] 100 mcg PO DAILY 04/02/18 04/02/18 History lisinopril 5 mg PO HS 04/02/18 04/02/18 History meclizine 25 mg PO TID PRN 04/02/18 04/02/18 History potassium chloride 10 meq PO DAILY 04/02/18 04/02/18 History tramadol 50 mg PO Q4 PRN 04/02/18 04/02/18 History vit C-rut-hesp cmp-bioflav,cit 1 tab PO DAILY 04/02/18 04/02/18 History [Special C] Patient History Medical History GERD (gastroesophageal reflux disease) Social History Current Living Situation: Spouse Other Information That Helps Us Care for You: No Feels Safe at Home: Yes Safety Concerns: Feels Safe At This Time Smoking Status: Former smoker Do You Dip or Chew Tobacco: No Smoking End Date: 1994 Hx Alcohol Use: No Hx Substance Use: No Beliefs That Will Affect Care: Holiness Holiness Beliefs: Mormon Communication Ability: Effective Review of Systems all remaining ros reviewed and are negative. Physical Exam 2 Vital Signs (Past 24 Hours): Last Vital Signs Temp 36.8 C 04/06/18 07:00 Pulse 91 H 04/06/18 07:00 Resp 16 04/06/18 07:00 BP 130/81 04/06/18 07:00 Pulse Ox 91 04/06/18 07:00 Constitutional: WD/WN, vitals as above Eyes: PERRL, conjunctivae normal, anicteric sclerae ENMT: external ear and nose normal, oropharynx normal Neck: normal visual inspection Respiratory: normal respiratory effort, lungs clear to auscultation Cardiovascular: RRR, no murmur, no edema Gastrointestinal (Abdomen): normal bowel sounds, soft, nontender, no hepatosplenomegaly Skin: no rashes, warm and dry lue with edema, dressing c/d/i Psychiatric: A+Ox3, euthymic affect Results & Data Laboratory Results Microbiology 04/05/18 13:39 Elbow,Left Gram Stain - Final 04/05/18 13:39 Elbow,Left Aerobic and Anaerobic Culture - Preliminary Staphylococcus aureus 04/04/18 14:57 Blood Blood Culture - Preliminary No growth to date. 04/04/18 14:49 Blood Blood Culture - Preliminary No growth to date.
--- NOTE | 2018-04-06 14:31 | Pharmacy Report ---
Pharmacy Abx Dose Short Note - Date of Service April 06, 2018 - Assessment & Plan Laboratory Tests 04/06/18 13:47 Vancomycin Trough 11.0 Assessment 77 year old F receiving Vancomycin for treatment of bursitis of left elbow. Day #3 of antimicrobial therapy. Blood cultures x2 show no growth. Culture of elbow is growing Staph Aureus, but sensitivities are pending. Plan Vancomycin * Trough level of 11.0 mcg/mL is subtherapeutic, but this level was drawn after only ONE maintenance dose. * Will re-order a trough tomorrow to see how much it has increased. * Continue dose of 1000 mg IV every 24 hours * Goal trough level for SST : ~15 mcg/mL * Trough level ordered for: 04/07/18 at 1330 Pharmacy will continue to follow and will adjust dose/frequency as necessary. Thank you.
[2018-04-06] MEDS: VANCOMYCIN HCL 1,000 MG in SODIUM CHLORIDE 0.9% 250 ML IV SCH (15:00)
[2018-04-06] MEDS: TRAMADOL HCL 50 MG TABLET PO PRN (18:00)
--- NOTE | 2018-04-06 18:25 | Orthopedic Progress Note ---
Date of Service April 06, 2018 Assessment & Plan (1) Septic olecranon bursitis: With positive cultures showing staph aureus of the aspirate drawn from the left olecranon bursa, patient will be set up for irrigation and debridement tomorrow with Dr. Flores. She will be n.p.o. after midnight. I discussed this with the patient. She is agreeable to the plans for open irrigation and debridement.Continue IV antibx. Cx sens pending at this time. She does not have to have the willard wrap on her elbow at this time. Patient seen and examined, agree with above assessment plan. Subjective Patient currently resting in her bed. Dr. Flores saw her yesterday and aspirated 3-4 ml of fluid from the left olecranon bursa.Fluid was sent for cell count which showed over 7000 WBCs. Cultures came back positive for staph aureus. Sensitivities pending. I discussed the case with Dr. Flores. Plans will be for irrigation and debridement of left septic olecranon bursa tomorrow. Pt remains afebrile. States she has a little more swelling in her left hand today. Discussed that it could be due to the tight willard bandage on her elbow. No new complaints. Otherwise she feels fine. Physical Exam 2 Vital Signs (Past 24 Hours): Last Vital Signs Temp 36.7 C 04/06/18 16:00 Pulse 105 H 04/06/18 16:00 Resp 18 04/06/18 16:00 BP 130/83 04/06/18 16:00 Pulse Ox 90 04/06/18 16:00 Physical Exam: Willard bandage is removed from the left elbow. Very minimal drainage on it. She has continued mild erythema over the olecranon bursa with moderate induration. She has good range of motion of the left elbow at this time. She has mild swelling down into her left hand but has good sensation and has good range of motion of her wrist and fingers. Capillary refill is less than 2 seconds.
[2018-04-07] MEDS: MECLIZINE HCL 25 MG TAB PO PRN ×2 (02:22→23:41)
[2018-04-07] MEDS: ONDANSETRON INJ 2 MG/ML 2 ML VIAL IV PRN (03:45)
[2018-04-07] MEDS ORDERED: KETOROLAC TROMETHAMINE 15 MG/ML VIAL IV ONE (04:11)
[2018-04-07] MEDS: LEVOTHYROXINE SODIUM 100 MCG TABLET PO SCH (06:20)
[2018-04-07] MEDS: HEPARIN SOD 5,000 UNIT/0.5 ML VIAL SQ SCH ×2 (08:40→20:36)
[2018-04-07] MEDS: TRAMADOL HCL 50 MG TABLET PO SCH ×2 (08:44→19:50)
[2018-04-07] MEDS: DICLOFENAC SOD 1% GEL 100 GM TUBE EXT SCH ×4 (08:45→21:07)
[2018-04-07] MEDS ORDERED: SUMAtriptan succinate 6 MG/0.5 ML VIAL SQ STA (12:58)
[2018-04-07] MEDS ORDERED: VANCOMYCIN TROUGH ONE (13:30)
--- NOTE | 2018-04-07 13:42 | Hospitalist Progress Note ---
Date of Service April 07, 2018 Assessment & Plan (1) Olecranon bursitis of left elbow: had the elbow drained about 2 weeks ago in her PCP's office. the elbow felt much better per patient history, but the bursal swelling has come back. she is on celebrex BID chronically and this medication could be partially treating and/or masking the primary process in the bursa. elbow warm and red, tender, continue Vancomycin 3-4cc of jessica colored fluid aspirated by Dr. Flores on 04/05 no crystals seen gram stain showed many WBC, rare gram positive cocci culture growing staph aureus, still awaiting sensitivities today ID recommends to continue Vanco, will need 21 days of antibiotics ortho planning on washout of the left olecranon today (2) Elevated sed rate: >90; CRP also elevated. no symptoms of temporal arteritis no clear-cut symptoms to suggest PMR suspect it is due to olecranon bursitis given the infection also, given the fact that elbow was swollen 2 weeks ago this would explain chronic inflammation echo without any vegetations. blood cx's x 2 sets sent - no growth (3) Migraine: gets these at home, likely triggered by poor sleep and not eating provide a single dose of Imitrex SQ for relief (4) Tachycardia: HR stable after volume status normalized stop IV fluids today (5) Dyspnea on exertion: CTA chest w/o PEs, pneumonia, etc. emphysematous changes seen but I don't suspect this is the primary cause of WHITING but certainly is likely contributing. WHITING could be restrictive lung disease from scoliosis. WHITING could be undiagnosed CAD. echo w/o wall motion abnormalities. O2 sats in RA at rest and with walking have been acceptable. can follow up outpatient (6) Chronic back pain: 2nd to scoliosis. cannot rule out spinal stenosis, etc. treat symptoms for now. refer back to ortho spine after discharge. (7) Leg cramps: checked Fe studies, mag, b12, etc - all wnl. She has muscle wasting of the thighs -- does she have a peripheral neuropathy causing such? consider neurology consult after discharge. no further work up inpatient (8) Abnormal chest CT: nodules needs outpatient f/u for this in light of prior tobacco use (9) Acquired hypothyroidism: TSH wnl cont synthroid (10) Osteoarthritis of multiple joints: severe OA celebrex BID (11) Fatigue: CT abd/pelvis and nothing was found to explain the fatigue. Again no evidence of temporal arteritis or PMR. No spinous process pain to suggest diskitis or abscess of back. could consider rheum evaluation and/or heme-onc evaluation but would do this as outpatient (12) Abnormal echocardiogram: echo findings c/w volume contracted state hydrate (13) DVT prophylaxis: heparin 5000 BID plan: washout of left elbow today choice of antibiotics will depend on final sensitivities defer to ID for recommendations Subjective patient frustrated with waiting for OR, she is hungry, developing a migraine headache explained that she is an add on case, tend to go later in the day, apologized provided Imitrex SQ for her headache left elbow pain and swelling controlled ortho plans for wash out today appreciate ID consult, continue Vanco for now, plan for duration of abx around 21 days Review of Systems All systems reviewed & are unremarkable except as noted in HPI & below Constitutional: + fatigue and + weakness Musculoskeletal: + joint pain (left elbow) and + swelling (left elbow) Neurologic: + headache(s) Physical Exam 2 Vital Signs (Past 24 Hours): Last Vital Signs Temp 36.6 C 04/07/18 07:00 Pulse 95 H 04/07/18 07:00 Resp 18 04/07/18 07:00 BP 129/74 04/07/18 07:00 Pulse Ox 90 04/07/18 07:00 Constitutional: WD/WN, vitals as above Eyes: PERRL, conjunctivae normal, anicteric sclerae ENMT: external ear and nose normal, oropharynx normal Neck: trachea midline, no thyromegaly Respiratory: normal respiratory effort, lungs clear to auscultation Cardiovascular: RRR, no murmur, no edema Gastrointestinal (Abdomen): normal bowel sounds, soft, nontender, no hepatosplenomegaly Musculoskeletal: no cyanosis or clubbing, extremities motor strength 5/5 Extremities: + extremities abnormal to inspection (left elbow wrapped tightly with luisa wrap) Skin: no rashes, warm and dry Neurologic: patellar DTR's 2+ bilat, sensation intact and PERRL, EOMI, accommodation nl, no face palsy, no dysarthria Psychiatric: A+Ox3, euthymic affect Lymphatic: no cervical or axillary lymphadenopathy Results & Data Laboratory Results Laboratory Results - last 24 hr 04/06/18 13:47 Vancomycin Trough 11.0 Medications Administered Current Inpatient Medications Acetaminophen (Tylenol) 650 mg PO Q4H PRN PRN Reason: pain/fever Stop: 05/02/18 23:28 Last Admin: 04/05/18 05:43 Dose: 650 mg Hydrocodone Bitart/Acetaminophen ([place] 5/325) 1 tab PO Q6H PRN PRN Reason: Pain Stop: 04/16/18 23:28 Al Hydrox/Mg Hydrox/Simethicone (Maalox) 30 ml PO Q6H PRN PRN Reason: Dyspepsia Stop: 05/02/18 23:28 Albuterol (Duoneb) 3 ml NEB Q4R PRN PRN Reason: Dyspnea Stop: 05/02/18 23:28 Calcium Carbonate (Os-Valentino 500) 1,250 mg PO DAILY [facility] Stop: 05/03/18 08:59 Last Admin: 04/06/18 09:21 Dose: 1,250 mg Celecoxib (Celebrex) 200 mg PO BID [facility] Stop: 05/03/18 08:59 Last Admin: 04/06/18 20:33 Dose: 200 mg Diazepam (Valium) 5 mg PO DAILY PRN PRN Reason: leg cramps Stop: 05/02/18 23:28 Last Admin: 04/03/18 04:01 Dose: 5 mg Diclofenac Sodium (Voltaren 1% Top) 4 appln EXT QID [facility] Stop: 05/03/18 12:59 Last Admin: 04/07/18 08:45 Dose: 4 appln Furosemide (Lasix) 20 mg PO DAILY [facility] Stop: 05/03/18 08:59 Last Admin: 04/04/18 07:49 Dose: 20 mg Guaifenesin (Mucinex) 600 mg PO Q12 PRN PRN Reason: Cough Stop: 05/05/18 08:59 Last Admin: 04/05/18 07:47 Dose: 600 mg Heparin Sodium (Porcine) (Heparin Sodium (Porcine)) 5,000 units SQ Q12 [facility] Stop: 05/05/18 08:59 Last Admin: 04/07/18 08:40 Dose: Not Given Vancomycin HCl 1,000 mg/ (Sodium Chloride) 270 mls @ 125 mls/hr IV DAILY@1400 [facility] Stop: 04/14/18 13:59 Last Infusion: 04/06/18 17:57 Dose: Infused Ioversol (Optiray 320 100ml) 93 ml IV ONCE PRN PRN Reason: Interaction Checking Stop: 04/08/18 15:59 Last Admin: 04/04/18 16:01 Dose: 93 ml Levothyroxine Sodium (Synthroid) 100 mcg PO DAILYBB [facility] Stop: 05/03/18 06:29 Last Admin: 04/07/18 06:20 Dose: Not Given Lisinopril (Zestril) 5 mg PO HS [facility] Stop: 05/03/18 20:59 Last Admin: 04/03/18 20:37 Dose: 5 mg Magnesium Hydroxide (Milk Of Magnesia) 30 ml PO Q6H PRN PRN Reason: Constipation Stop: 05/02/18 23:28 Meclizine HCl (Antivert) 25 mg PO TID PRN PRN Reason: Dizziness Stop: 05/02/18 23:28 Last Admin: 04/07/18 02:22 Dose: 25 mg Miscellaneous Information (Consult) 1 ea N/A UD PRN PRN Reason: Consult Stop: 05/04/18 16:46 Ondansetron HCl (Zofran) 4 mg IV Q6H PRN PRN Reason: Nausea Stop: 05/02/18 23:28 Last Admin: 04/07/18 03:45 Dose: 4 mg Pantoprazole Sodium (Protonix) 40 mg PO DAILY [facility] Stop: 05/03/18 08:59 Last Admin: 04/06/18 09:21 Dose: 40 mg Polyethylene Glycol (Miralax Powder Packet) 17 gm PO DAILY PRN PRN Reason: Constipation Stop: 05/02/18 23:28 Potassium Chloride (Klor-Con M10) 10 meq PO DAILY [facility] Stop: 05/03/18 08:59 Last Admin: 04/06/18 09:22 Dose: 10 meq Tramadol HCl (Ultram) 50 mg PO Q4 PRN PRN Reason: Pain Stop: 05/02/18 23:28 Last Admin: 04/06/18 18:00 Dose: 50 mg Tramadol HCl (Ultram) 100 mg PO Q12@0700,1900 [facility] Stop: 05/06/18 18:59 Last Admin: 04/07/18 08:44 Dose: 100 mg Vitamin D (Vitamin D3) 2,000 units PO DAILY [facility] Stop: 05/03/18 08:59 Last Admin: 04/06/18 09:21 Dose: 2,000 units _ (1) Chronic back pain Back pain location: back pain in unspecified location Back pain laterality: unspecified Sciatica presence: Sciatica laterality: Qualified Code(s): M54.9 - Dorsalgia, unspecified; G89.29 - Other chronic pain (2) Osteoarthritis of multiple joints Osteoarthritis type: unspecified Qualified Code(s): M15.9 - Polyosteoarthritis, unspecified (3) Fatigue Fatigue type: unspecified Encounter type: Trimester: Qualified Code(s): R53.83 - Other fatigue
--- NOTE | 2018-04-07 14:26 | History & Physical Bridge Note ---
Date of Service April 07, 2018 History & Physical Bridge Note I have examined the patient, reviewed the History & Physical and in the interval since the performance of the History & Physical I have noted the following changes of clinical significance,olecrenon bursa culture positive for staph aureus sensitivities pending
--- NOTE | 2018-04-07 14:37 | Infectious Disease Progress Nt ---
Date of Service April 07, 2018 Assessment & Plan (1) Olecranon bursitis of left elbow: continue vanco for now, follow final cultures, OR findings. duration in range of 21 days Subjective pt for OR washout today, aspirate cutlure growing S. aureus, sensitivities pending. blood cultures remain negative. on vanco, tolerating well. afebrile. Physical Exam 2 Vital Signs (Past 24 Hours): Last Vital Signs Temp 36.6 C 04/07/18 07:00 Pulse 95 H 04/07/18 07:00 Resp 18 04/07/18 07:00 BP 129/74 04/07/18 07:00 Pulse Ox 90 04/07/18 07:00 Results & Data Laboratory Results Microbiology 04/05/18 13:39 Elbow,Left Gram Stain - Final 04/05/18 13:39 Elbow,Left Aerobic and Anaerobic Culture - Preliminary Staphylococcus aureus 04/04/18 14:57 Blood Blood Culture - Preliminary No growth to date. 04/04/18 14:49 Blood Blood Culture - Preliminary No growth to date.
[2018-04-07] MEDS: VANCOMYCIN HCL 1,000 MG in SODIUM CHLORIDE 0.9% 250 ML IV SCH (15:02)
--- NOTE | 2018-04-07 15:03 | Anesthesiology Consultation ---
Date of Service April 07, 2018 Assessment & Plan (1) Encounter for pre-operative examination: NPO Date Last Intake of Fluids: 04/06/18 Date Last Intake of Solids: 04/06/18 History Surgery Operation Date: 04/07/18 07:00 Proposed Procedures p Left Septic Olecranon Bursa Incision and Drainage - Pravin Flores MD Height/Weight Height: 4 ft 7 in Weight: 52.7 kg Allergies Allergy/AdvReac Type Severity Reaction Status Date / Time Admguyn-Vxb-Jtm Reductase Allergy Intermediate Muscle Pain Verified 04/02/18 17: 30 Inhibitor UNKNOWN ANTIBIOTICS Allergy Unknown CAN'T Uncoded 04/02/18 17:30 REMEMBER Medications Home Medications Medication Instructions Recorded Confirmed Last Taken calcium carbonate [Calcium 600] 600 mg PO DAILY 04/02/18 04/02/18 04/02/18 celecoxib [Celebrex] 200 mg PO BID 04/02/18 04/02/18 04/02/18 AM cholecalciferol (vitamin D3) 2,000 unit PO DAILY 04/02/18 04/02/18 04/02/18 [Vitamin D3] diazepam 5 mg PO DAILY 04/02/18 04/02/18 04/02/18 esomeprazole magnesium 40 mg PO DAILY 04/02/18 04/02/18 04/02/18 furosemide [Lasix] 20 mg PO DAILY 04/02/18 04/02/18 04/02/18 hydrocodone-acetaminophen 1 tab PO Q6H PRN 04/02/18 04/02/18 Unknown levothyroxine [Synthroid] 100 mcg PO DAILY 04/02/18 04/02/18 04/02/18 lisinopril 5 mg PO HS 04/02/18 04/02/18 04/01/18 meclizine 25 mg PO TID PRN 04/02/18 04/02/18 04/01/18 potassium chloride 10 meq PO DAILY 04/02/18 04/02/18 04/02/18 tramadol 50 mg PO Q4 PRN 04/02/18 04/02/18 04/02/18 vit C-rut-hesp cmp-bioflav,cit 1 tab PO DAILY 04/02/18 04/02/18 04/02/18 [Special C] Active Medications Generic Name Dose Route Start Last Admin Trade Name Freq PRN Reason Stop Dose Admin Acetaminophen 650 mg 04/02/18 23:29 04/05/18 05:43 Tylenol PO 05/02/18 23:28 650 mg Q4H PRN Administration pain/fever Calcium Carbonate 1,250 mg 04/03/18 09:00 04/06/18 09:21 Os-Valentino 500 PO 05/03/18 08:59 1,250 mg DAILY PANTERA Administration Celecoxib 200 mg 04/03/18 09:00 04/06/18 20:33 Celebrex PO 05/03/18 08:59 200 mg BID PANTER[facility] Administration Diazepam 5 mg 04/02/18 23:29 04/03/18 04:01 Valium PO 05/02/18 23:28 5 mg DAILY PRN Administration leg cramps Diclofenac Sodium 4 appln 04/03/18 13:00 04/07/18 08:45 Voltaren 1% Top EXT 05/03/18 12:59 4 appln QID [facility]TER[facility] Administration Furosemide 20 mg 04/03/18 09:00 04/04/18 07:49 Lasix PO 05/03/18 08:59 20 mg DAILY [facility] Administration Guaifenesin 600 mg 04/04/18 22:09 04/05/18 07:47 Mucinex PO 05/05/18 08:59 600 mg Q12 PRN Administration Cough Heparin Sodium (Porcine) 5,000 units 04/05/18 09:00 04/07/18 08:40 Heparin Sodium (Porcine) SQ 05/05/18 08:59 Not Given Q12 [facility] Vancomycin HCl 1,000 mg/ 270 mls @ 125 mls/hr 04/05/18 14:00 04/06/18 17:57 Sodium Chloride IV 04/07/18 18:00 Infused DAILY@1400 [facility] Infusion Ioversol 93 ml 04/04/18 16:00 04/04/18 16:01 Optiray 320 100ml IV 04/08/18 15:59 93 ml ONCE PRN Administration Interaction Checking Levothyroxine Sodium 100 mcg 04/03/18 06:30 04/07/18 06:20 Synthroid PO 05/03/18 06:29 Not Given DAILYBB [facility] Lisinopril 5 mg 04/03/18 21:00 04/03/18 20:37 Zestril PO 05/03/18 20:59 5 mg HS [facility] Administration Meclizine HCl 25 mg 04/02/18 23:29 04/07/18 02:22 Antivert PO 05/02/18 23:28 25 mg TID PRN Administration Dizziness Ondansetron HCl 4 mg 04/02/18 23:29 04/07/18 03:45 Zofran IV 05/02/18 23:28 4 mg Q6H PRN Administration Nausea Pantoprazole Sodium 40 mg 04/03/18 09:00 04/06/18 09:21 Protonix PO 05/03/18 08:59 40 mg DAILY [facility] Administration Potassium Chloride 10 meq 04/03/18 09:00 04/06/18 09:22 Klor-Con M10 PO 05/03/18 08:59 10 meq DAILY [facility] Administration Tramadol HCl 50 mg 04/02/18 23:29 04/06/18 18:00 Ultram PO 05/02/18 23:28 50 mg Q4 PRN Administration Pain Tramadol HCl 100 mg 04/06/18 19:00 04/07/18 08:44 Ultram PO 05/06/18 18:59 100 mg Q12@0700,1900 [facility] Administration Vitamin D 2,000 units 04/03/18 09:00 04/06/18 09:21 Vitamin D3 PO 05/03/18 08:59 2,000 units DAILY [facility] Administration Past Medical History Medical History GERD (gastroesophageal reflux disease) CVA (cerebral vascular accident) 05/2017 "light stroke" per patient. No deficits. Hypothyroid Hypoxia Migraine Osteoarthritis Social History Smoking Status: Former smoker Do You Dip or Chew Tobacco: No Smoking End Date: 1994 Hx Alcohol Use: No Hx Substance Use: No Physical Exam Vital Signs Last Vital Signs Temp 36.9 C 04/07/18 15:43 Pulse 100 H 04/07/18 15:43 Resp 16 04/07/18 15:43 BP 150/75 H 04/07/18 15:43 Pulse Ox 97 04/07/18 15:43 Testing Electrocardiogram Date: 04/02/18 Findings: + ST @ (115) Sinus tachycardia Possible Left atrial enlargement Inferior infarct , age undetermined Anterior infarct , age undetermined Abnormal ECG No previous ECGs available Chest X-Ray Date: 04/02/18 [facility], [place] [phone] XRay Report Patient: JOON MORENO RAdrodrigo Date: 04/02/18 MR#: [id number]: Acct ID:[id number]: [facility] Age[facility] 77Location: ED Sex: F Room/Bed: Att Phy: Diagnosis: SOB Krystal Phy: PCP,NO Service Date: 04/02/18 Fam Phy: Interpreting Phy: Thien Alaniz MD Admit Phy: Ordering Phy: Sreekanth Encarnacion M.D. cc: ~ 1. There is no acute cardiopulmonary abnormality. 2. A right-sided aortic arch is incidentally noted. 3. Question a subcentimeter pulmonary nodule in the left upper lobe. Further assessed with a nonemergent chest CT is recommended. Echocardiogram Date: 04/04/18 EF: >70% Lv cavity is small. MIld conc LVH. All LV segments are hyperdynamic. LV wall motion normal. LV small and underfilled. Mild TR Laboratory Results 04/06/18 07:09 04/06/18 07:09 PT 10.7 Seconds (9.0-12.0) 04/02/18 16:55 INR 1.1 (0.9-1.1) 04/02/18 16:55 APTT 31.2 Seconds (21.0-31.0) H 04/02/18 16:55 Urine Color Yellow 04/03/18 Unknown Urine Appearance Clear (Clear) 04/03/18 Unknown Urine pH 6.5 (4.5-7.5) 04/03/18 Unknown Ur Specific [place] 1.013 (1.000-1.030) 04/03/18 Unknown Urine Protein Negative (Negative) 04/03/18 Unknown Urine Glucose (UA) Negative (Negative) 04/03/18 Unknown Urine Ketones Negative (Negative) 04/03/18 Unknown Urine Nitrite Negative (Negative) 04/03/18 Unknown Ur Leukocyte Esterase Negative (Negative) 04/03/18 Unknown 04/05/18 13:39 Gram Stain - Final Elbow,Left Aerobic and Anaerobic Culture - Preliminary Staphylococcus aureus 04/04/18 14:57 Blood Culture - Preliminary Blood No growth to date. 04/04/18 14:49 Blood Culture - Preliminary Blood No growth to date.
--- NOTE | 2018-04-07 15:21 | Pharmacy Report ---
Pharmacy Abx Dose Short Note - Date of Service April 07, 2018 - Assessment & Plan Assessment 78 year old F receiving vancomycin IV for treatment of olecranon bursitis of left elbow: * Day #4 of antimicrobial therapy * BC reported NGTD, elbow culture growing S.aureus (sensitivities pending) Plan Continue Vancomycin * Trough level of 11.9 mcg/mL is subtherapeutic * Change to 1000 mg IV every 18 hours * Goal trough level for bursitis : ~15 mcg/mL * Repeat trough level will be ordered if patient remains on vanco Pharmacy will continue to follow and will adjust dose/frequency as necessary. Thank you.
[2018-04-07] MEDS ORDERED: DEXAMETHASONE SOD INJ 4 MG/ML VIAL ONE (15:27)
[2018-04-07] MEDS ORDERED: LIDOCAINE HCL 2% 2 ML VIAL/AMP(20MG/ML) INFIL ONE ×2 (15:27→16:33)
[2018-04-07] MEDS ORDERED: PROPOFOL IV EMULSION 10 MG/ML 20 ML VIAL IV ONE ×2 (15:27→16:33)
[2018-04-07] MEDS ORDERED: ONDANSETRON INJ 2 MG/ML 2 ML VIAL ONE ×2 (15:27→16:47)
[2018-04-07] MEDS ORDERED: fentaNYL citrate 100 MCG/2 ML VIAL ONE ×2 (15:28→16:08)
[2018-04-07] MEDS ORDERED: MIDAZOLAM HCL 1 MG/ML 2ML VIAL ONE (15:28)
[2018-04-07] MEDS ORDERED: BACITRACIN INJ 50,000 UNIT VIAL ONE (15:53)
[2018-04-07] MEDS ORDERED: PHENYLEPHRINE HCL 10 MG/ML VIAL ONE (16:49)
--- NOTE | 2018-04-07 17:36 | Post Operative Brief Note ---
Immediate Post Op Note v1 Date of Surgery April 07, 2018 Pre & Post Diagnosis Operation Date: 04/07/18 07:00 Pre-Op Diagnosis: Left elbow septic olecranon bursitis Post-Op Diagnosis: Same Procedure Operation Date: 04/07/18 07:00 Actual Procedures p Left Septic Olecranon Bursa Incision and Drainage(Left) excision olecranon bursa irrigation debridement packing with iodoform gauze- Pravin Flores MD Surgeon Pravin Flores MD Valve Pipe Irrigator None Estimated Blood Loss 1 Findings Consistent with Post-Op Diagnosis Specimens Culture and bursa Complications none Disposition Accompanied Patient To Recovery: No Disposition: Recovery Room Overlapping Procedure I was immediately available: during the entire case.
[2018-04-07] MEDS ORDERED: ATROPINE SULFATE 0.1 MG/ML 10ML SYR IV PRN (18:14)
[2018-04-07] MEDS ORDERED: ePHEDrine sulfate 50 MG/ML AMP IV PRN (18:14)
--- NOTE | 2018-04-07 18:14 | Anesthesiology Progress Note ---
Date of Service April 07, 2018 Anesthesia Post Procedure Vital Signs Vital Signs: Temp Pulse Pulse Resp BP Pulse Ox 04/07/18 18:10 36.6 C 85 12 139/75 94 04/07/18 18:00 85 12 146/82 H 95 04/07/18 17:50 88 17 151/83 H 95 04/07/18 17:40 37.0 C 96 H 15 146/83 H 94 04/07/18 15:43 36.9 C 100 H 100 H 16 150/75 H 97 04/07/18 07:00 36.6 C 95 H 18 129/74 90 04/07/18 00:00 37.0 C 90 20 121/73 97 Pain Intensity Right Leg: Pain Intensity: 6 Right Hip: Pain Intensity: 5 Left Elbow: Pain Intensity: 0 Notes Mental Status: alert / awake / arousable and participated in evaluation Nausea / Vomiting: adequately controlled Pain: adequately controlled Airway Patency, RR, SpO2: stable & adequate BP & HR: stable & adequate Hydration State: stable & adequate Anesthetic Complications: no major complications apparent and Pt Satisfied with anesthetic care
[2018-04-07] MEDS: CeleBREX 200 MG CAP PO SCH ×2 (18:26→21:07)
[2018-04-07] MEDS: PANTOprazole 40 MG TAB PO SCH (18:27)
[2018-04-07] MEDS: CALCIUM CARBONATE 1250MG TAB PO SCH (18:27)
[2018-04-07] MEDS: CHOLECALCIFEROL 1,000 UNITS TAB PO SCH (18:27)
[2018-04-07] MEDS: POTASSIUM CHLORIDE 10 MEQ TABCR PO SCH (18:27)
[2018-04-07] MEDS ORDERED: HYDROmorphone INJ 0.5 MG/0.5 ML SYR IV PRN (18:40)
--- NOTE | 2018-04-07 20:45 | Operative Report ---
DATE OF OPERATION: 04/07/2018 INDICATION FOR PROCEDURE: The patient is a 78-year-old female with chronic left elbow olecranon bursitis and she had this drained by her primary care physician via a small scab which was removed and the fluid expressed out. She continues to have recurrent swelling in her elbow. Her elbow was aspirated in the hospital and cultures are growing Staph aureus now. PREOPERATIVE DIAGNOSIS: Septic olecranon bursitis, left elbow. POSTOPERATIVE DIAGNOSIS: Same. PROCEDURE: Incision and drainage, irrigation, debridement, olecranon bursectomy and packing with iodoform gauze, left elbow olecranon bursa. SURGEON: Pravin Flores MD INSPECTOR AND SORTER: None. ANESTHESIA: General. COMPLICATIONS: None. BLOOD LOSS: Minimal. SPECIMENS: Culture and olecranon bursa. OPERATIVE PROCEDURE: The patient was taken to the operating room and anesthetized under general anesthetic. She was placed on a beanbag chair in about 40-degree semilateral decubitus position toward the right side. All extremities were padded. Pneumatic tourniquet was placed about the left upper arm and then left upper extremity was prepped and draped in sterile fashion. Exam demonstrates she had normal range of motion of the elbow. She had a large fluid collection in the olecranon bursa, an old healed scab over the tip of the olecranon bursa area and she had an extension that extended down at least 8 cm along her ulna, upper forearm area which was both soft tissue and fluid filled area of bursa and fluid filled olecranon bursa tissue. After the extremity was sterilely prepped, we raised the tourniquet. No Esmarch was used due to infection. Longitudinal incision was made over the posterior elbow and the bursa fluid was evacuated. The cultures were obtained. There was chronically inflamed olecranon bursa tissue noted. This bursa tissue was excised including some of the bursa tissue that extended down into the forearm area. We excised anything that looked pathological in that area. The wound was copiously irrigated with 3 liters of antibiotic solution with bacitracin. Then the wound was packed with iodoform gauze and then the incision was closed with interrupted 3-0 nylon vertical mattress sutures. Xeroform, sterile dressings, and a compressive sterile Webril bandage and Willard wrap were applied. Tourniquet was let down. The patient had normal capillary refill to bilateral extremities. The patient tolerated the procedure well. I attest to the content of the Intraoperative Record and any orders documented therein. Any exception s are noted below.
[2018-04-07] MEDS: ACETAMINOPHEN 325 MG TAB PO PRN (21:06)
[2018-04-07] MEDS: LISINOPRIL 5 MG TAB PO SCH (21:11)
[2018-04-08] MEDS: TRAMADOL HCL 50 MG TABLET PO SCH ×2 (06:08→18:24)
[2018-04-08] MEDS: LEVOTHYROXINE SODIUM 100 MCG TABLET PO SCH (06:08)
[2018-04-08 06:12] LABS: Basophils # (auto) 0.04 K/uL (0-0.2); Basophils % (auto) 0.4 %; Eosinophils # (auto) 0.21 K/uL (0-0.5); Eosinophils % (auto) 2.3 %; Hematocrit (blood only) 35.9 % (37-47); Hemoglobin 11.3 g/dL (12.0-16.0); Immature Granulocytes # (auto) 0.07 K/uL (0.00-0.02); Immature Granulocytes % (auto) 0.8 %; Lymphocytes # (auto) 1.22 K/uL (1.2-3.4); Lymphocytes % (auto) 13.1 %; Mean Corpuscular Hgb Conc 31.5 g/dL (32-36); Mean Platelet Volume 8.9 fL (7.4-10.4); Monocytes # (auto) 0.85 K/uL (0.11-0.59); Monocytes % (auto) 9.2 %; Neutrophils # (auto) 6.89 K/uL (1.4-6.5); Neutrophils % (auto) 74.2 %; Platelet Count 512 K/uL (130-400); RDW Standard Deviation 53.2 fL (36.4-46.3); White Blood Count 9.28 K/uL (4.8-10.8)
[2018-04-08 06:51] LABS: Calcium 9.4 mg/dl (8.5-10.1); Creatinine Clr Calc Pharmacy 44.1 ml/min; Est GFR (African American) 96.9; Est GFR (Non-African American) 83.6; Potassium 4.4 mmol/L (3.5-5.1)
[2018-04-08] MEDS ORDERED: VANCOMYCIN HCL 1,000 MG in SODIUM CHLORIDE 0.9% 250 ML IV SCH (08:00)
[2018-04-08] MEDS: POLYETHYLENE (MIRALAX) 17 GM PACK PO PRN (08:18)
[2018-04-08] MEDS: CALCIUM CARBONATE 1250MG TAB PO SCH ×2 (08:19→13:03)
[2018-04-08] MEDS: POTASSIUM CHLORIDE 10 MEQ TABCR PO SCH ×2 (08:19→13:03)
[2018-04-08] MEDS: MECLIZINE HCL 25 MG TAB PO PRN ×2 (08:19→21:16)
[2018-04-08] MEDS: CeleBREX 200 MG CAP PO SCH ×3 (08:20→20:18)
[2018-04-08] MEDS: PANTOprazole 40 MG TAB PO SCH ×2 (08:20→13:04)
[2018-04-08] MEDS: CHOLECALCIFEROL 1,000 UNITS TAB PO SCH ×2 (08:20→13:04)
[2018-04-08] MEDS: DICLOFENAC SOD 1% GEL 100 GM TUBE EXT SCH ×4 (08:21→20:18)
[2018-04-08] MEDS: HEPARIN SOD 5,000 UNIT/0.5 ML VIAL SQ SCH ×2 (08:24→18:56)
--- NOTE | 2018-04-08 11:59 | Orthopedic Progress Note ---
Date of Service April 08, 2018 Assessment & Plan (1) Septic olecranon bursitis: Continue IV antibx. Initial cx's showing Staph Aureus. Follow cx's. Begin packing removal and daily dressing changes. Subjective POD 1 s/p Left I&D of Olecranon bursa Pt lying in bed. Awake, alert. Pain controlled. No complaints. Feeling well. Physical Exam 2 Vital Signs (Past 24 Hours): Last Vital Signs Temp 37.1 C 04/08/18 07:40 Pulse 89 04/08/18 07:40 Resp 14 04/08/18 07:40 BP 126/81 04/08/18 07:40 Pulse Ox 89 L 04/08/18 07:40 Physical Exam: LUE dressing C/D/I. Moving wrist and fingers well. Sensation intact. NV intact. Decreased ROM of of the left elbow due to surgery and bulky dressing. Cap refill less than 2 seconds.
--- NOTE | 2018-04-08 12:31 | Infectious Disease Progress Nt ---
Date of Service April 08, 2018 Assessment & Plan (1) Olecranon bursitis of left elbow: will change to rocephin, follow OR cultures. duration in range of 21-28 days will need picc line and weekly cbc, cpm, esr while on abx. Subjective pt seen in followup, s/p I&D yesterday, 8cm fluid collection drained, no pain in elbow today. no f/c. remains on vanco, toleraitng well. had some pain meds for jane earlier and now having some nausea. otherwise no complaints. not hungry, denies vomiting. wbc 9.2 today. Blood cultures negatie, 04/05 aspirate culture growing MSSA, OR cultures pending, gram stain with no organisms. has not yet had dressing change. remaining ros reviewed and are negative. Physical Exam 2 Vital Signs (Past 24 Hours): Last Vital Signs Temp 37.1 C 04/08/18 07:40 Pulse 89 04/08/18 07:40 Resp 14 04/08/18 07:40 BP 126/81 04/08/18 07:40 Pulse Ox 89 L 04/08/18 07:40 Constitutional: WD/WN, vitals as above Eyes: PERRL, conjunctivae normal, anicteric sclerae ENMT: external ear and nose normal, oropharynx normal Neck: normal visual inspection Respiratory: normal respiratory effort, lungs clear to auscultation Cardiovascular: RRR, no murmur, no edema Gastrointestinal (Abdomen): normal bowel sounds, soft, nontender, no hepatosplenomegaly Skin: no rashes, warm and dry Psychiatric: A+Ox3, euthymic affect Results & Data Laboratory Results Microbiology 04/05/18 13:39 Elbow,Left Gram Stain - Final 04/05/18 13:39 Elbow,Left Aerobic and Anaerobic Culture - Preliminary Staphylococcus aureus 04/07/18 16:58 Elbow Gram Stain - Final 04/04/18 14:57 Blood Blood Culture - Preliminary No growth to date. 04/04/18 14:49 Blood Blood Culture - Preliminary No growth to date.
[2018-04-08] MEDS: ONDANSETRON INJ 2 MG/ML 2 ML VIAL IV PRN (12:58)
[2018-04-08] MEDS: ACETAMINOPHEN 325 MG TAB PO PRN (13:00)
[2018-04-08] MEDS: FUROSEMIDE 20 MG TAB PO SCH (13:02)
[2018-04-08] MEDS ORDERED: SUMAtriptan succinate 6 MG/0.5 ML VIAL SQ STA (13:32)
[2018-04-08] MEDS: SODIUM CHLORIDE 0.9% 1000ML 1,000 ML IV SCH (14:15)
[2018-04-08] MEDS: cefTRIAXone SODIUM 2,000 MG in DEXTROSE 5% 50 ML IV SCH (14:15)
--- NOTE | 2018-04-08 16:19 | Hospitalist Progress Note ---
Date of Service April 08, 2018 Assessment & Plan (1) Olecranon bursitis of left elbow: had the elbow drained about 2 weeks ago in her PCP's office. the elbow felt much better per patient history, but the bursal swelling has come back. she is on celebrex BID chronically and this medication could be partially treating and/or masking the primary process in the bursa. 3-4cc of jessica colored fluid aspirated by Dr. Flores on 04/05 no crystals seen gram stain showed many WBC, rare gram positive cocci, grew out MSSA washout of left olecranon bursa on 04/07, tolerated well abx changed to Rocephin, ID recommends 21-28 days of treatment, PICC line will need to check BMP, CBC, ESR weekly (2) Elevated sed rate: >90; CRP also elevated. no symptoms of temporal arteritis no clear-cut symptoms to suggest PMR suspect it is due to olecranon bursitis given the infection also, given the fact that elbow was swollen 2 weeks ago this would explain chronic inflammation follow ESR weekly as outpatient (3) Migraine: gets these at home, likely triggered by poor sleep and not eating some relief with Imitrex yesterday will treat again with Imitrex and some NSS at 80cc/hr (4) Tachycardia: HR trending up, not drinking much will start NSS at 80cc/hr (5) Dyspnea on exertion: CTA chest w/o PEs, pneumonia, etc. emphysematous changes seen but I don't suspect this is the primary cause of WHITING but certainly is likely contributing. WHITING could be restrictive lung disease from scoliosis. WHITING could be undiagnosed CAD. echo w/o wall motion abnormalities. O2 sats in RA at rest and with walking have been acceptable. can follow up outpatient (6) Chronic back pain: 2nd to scoliosis. cannot rule out spinal stenosis, etc. treat symptoms for now. refer back to ortho spine after discharge. (7) Leg cramps: checked Fe studies, mag, b12, etc - all wnl. She has muscle wasting of the thighs -- does she have a peripheral neuropathy causing such? consider neurology consult after discharge. no further work up inpatient (8) Abnormal chest CT: nodules needs outpatient f/u for this in light of prior tobacco use (9) Acquired hypothyroidism: TSH wnl cont synthroid (10) Osteoarthritis of multiple joints: severe OA celebrex BID (11) Fatigue: CT abd/pelvis and nothing was found to explain the fatigue. Again no evidence of temporal arteritis or PMR. No spinous process pain to suggest diskitis or abscess of back. could consider rheum evaluation and/or heme-onc evaluation but would do this as outpatient (12) Abnormal echocardiogram: echo findings c/w volume contracted state hydrate (13) DVT prophylaxis: heparin 5000 BID plan: will get PICC tomorrow, plan for outpatient Rocephin, likely home after the weekend get PT/OT Subjective patient laying in bed, says she does not feel well today c/o migraine headache, nausea, weakness, left elbow pain discussed with ID, recommend PICC for Rocephin, will need 21-28 days appreciate ortho note reviewed labs, CBC and BMP stable Review of Systems All systems reviewed & are unremarkable except as noted in HPI & below Constitutional: + body aches, + fatigue and + weakness; no fever and no sweats Gastrointestinal: + nausea; no vomiting Musculoskeletal: + joint pain (left elbow) Neurologic: + headache(s) Physical Exam 2 Vital Signs (Past 24 Hours): Last Vital Signs Temp 36.9 C 04/08/18 14:26 Pulse 111 H 04/08/18 14:26 Resp 18 04/08/18 14:26 BP 116/69 04/08/18 14:26 Pulse Ox 92 04/08/18 14:26 Constitutional: WD/WN, vitals as above Eyes: PERRL, conjunctivae normal, anicteric sclerae ENMT: external ear and nose normal, oropharynx normal Neck: trachea midline, no thyromegaly Respiratory: normal respiratory effort, lungs clear to auscultation Cardiovascular: RRR, no murmur, no edema Gastrointestinal (Abdomen): normal bowel sounds, soft, nontender, no hepatosplenomegaly Musculoskeletal: no cyanosis or clubbing, extremities motor strength 5/5 Extremities: + extremities abnormal to inspection (left elbow wrapped tightly with luisa wrap, wound packed) Skin: no rashes, warm and dry Neurologic: patellar DTR's 2+ bilat, sensation intact and PERRL, EOMI, accommodation nl, no face palsy, no dysarthria Psychiatric: A+Ox3, euthymic affect Lymphatic: no cervical or axillary lymphadenopathy Results & Data Laboratory Results Laboratory Results - last 24 hr 04/08/18 04/08/18 05:36 05:36 WBC 9.28 RBC 3.70 L Hgb 11.3 L Hct 35.9 L MCV 97.0 MCH 30.5 MCHC 31.5 L RDW Std Deviation 53.2 H RDW Coeff of Pamela 15.0 H Plt Count 512 H MPV 8.9 Immature Gran % (Auto) 0.8 Neut % (Auto) 74.2 Lymph % (Auto) 13.1 [place] % (Auto) 9.2 Eos % (Auto) 2.3 Baso % (Auto) 0.4 Immature Gran # (Auto) 0.07 H Neut # (Auto) 6.89 H Lymph # (Auto) 1.22 [place] # (Auto) 0.85 H Eos # (Auto) 0.21 Baso # (Auto) 0.04 Sodium 136 Potassium 4.4 D Chloride 104 Carbon Dioxide 28 Anion Gap 4.0 BUN 17 D Creatinine 0.70 Est Cr Clr Drug Dosing 44.1 Est GFR ( Amer) 96.9 Est GFR (Non-Af Amer) 83.6 BUN/Creatinine Ratio 24.0 H Glucose 89 Calcium 9.4 Microbiology 04/07/18 16:58 Elbow Gram Stain - Final 04/07/18 16:58 Elbow Aerobic and Anaerobic Culture - Preliminary No growth to date. 04/05/18 13:39 Elbow,Left Gram Stain - Final 04/05/18 13:39 Elbow,Left Aerobic and Anaerobic Culture - Preliminary Staphylococcus aureus 04/04/18 14:57 Blood Blood Culture - Preliminary No growth to date. 04/04/18 14:49 Blood Blood Culture - Preliminary No growth to date. Medications Administered Current Inpatient Medications Acetaminophen (Tylenol) 650 mg PO Q4H PRN PRN Reason: pain/fever Stop: 05/02/18 23:28 Last Admin: 04/08/18 13:00 Dose: 650 mg Hydrocodone Bitart/Acetaminophen ([place] 5/325) 1 tab PO Q6H PRN PRN Reason: Pain Stop: 04/16/18 23:28 Al Hydrox/Mg Hydrox/Simethicone (Maalox) 30 ml PO Q6H PRN PRN Reason: Dyspepsia Stop: 05/02/18 23:28 Albuterol (Duoneb) 3 ml NEB Q4R PRN PRN Reason: Dyspnea Stop: 05/02/18 23:28 Calcium Carbonate (Os-Valentino 500) 1,250 mg PO DAILY [facility] Stop: 05/03/18 08:59 Last Admin: 04/08/18 13:03 Dose: Not Given Celecoxib (Celebrex) 200 mg PO BID [facility] Stop: 05/03/18 08:59 Last Admin: 04/08/18 13:03 Dose: Not Given Diazepam (Valium) 5 mg PO DAILY PRN PRN Reason: leg cramps Stop: 05/02/18 23:28 Last Admin: 04/03/18 04:01 Dose: 5 mg Diclofenac Sodium (Voltaren 1% Top) 4 appln EXT QID [facility] Stop: 05/03/18 12:59 Last Admin: 04/08/18 13:01 Dose: Not Given Furosemide (Lasix) 20 mg PO DAILY [facility] Stop: 05/03/18 08:59 Last Admin: 04/08/18 13:02 Dose: Not Given Guaifenesin (Mucinex) 600 mg PO Q12 PRN PRN Reason: Cough Stop: 05/05/18 08:59 Last Admin: 04/05/18 07:47 Dose: 600 mg Heparin Sodium (Porcine) (Heparin Sodium (Porcine)) 5,000 units SQ Q12 [facility] Stop: 05/05/18 08:59 Last Admin: 04/08/18 08:24 Dose: Not Given Hydromorphone HCl (Dilaudid) 0.25 mg IV Q4H PRN PRN Reason: Pain Stop: 04/21/18 18:39 Last Admin: 04/08/18 08:44 Dose: 0.25 mg Ceftriaxone Sodium 2,000 mg/ (Dextrose) 70 mls @ 100 mls/hr IV Q24H [facility]; Protocol Stop: 05/20/18 13:29 Last Infusion: 04/08/18 15:00 Dose: Infused Sodium Chloride (Nss 1000ml) 1,000 mls @ 80 mls/hr IV .[id number] [facility] Stop: 05/08/18 13:59 Last Admin: 04/08/18 14:15 Dose: 80 mls/hr Levothyroxine Sodium (Synthroid) 100 mcg PO DAILYBB [facility] Stop: 05/03/18 06:29 Last Admin: 01/24/19 06:08 Dose: 100 mcg Lisinopril (Zestril) 5 mg PO HS [facility] Stop: 05/03/18 20:59 Last Admin: 04/07/18 21:11 Dose: Not Given Magnesium Hydroxide (Milk Of Magnesia) 30 ml PO Q6H PRN PRN Reason: Constipation Stop: 05/02/18 23:28 Meclizine HCl (Antivert) 25 mg PO TID PRN PRN Reason: Dizziness Stop: 05/02/18 23:28 Last Admin: 04/08/18 08:19 Dose: 25 mg Ondansetron HCl (Zofran) 4 mg IV Q6H PRN PRN Reason: Nausea Stop: 05/02/18 23:28 Last Admin: 04/08/18 12:58 Dose: 4 mg Pantoprazole Sodium (Protonix) 40 mg PO DAILY [facility] Stop: 05/03/18 08:59 Last Admin: 04/08/18 13:04 Dose: Not Given Polyethylene Glycol (Miralax Powder Packet) 17 gm PO DAILY PRN PRN Reason: Constipation Stop: 05/02/18 23:28 Last Admin: 04/08/18 08:18 Dose: 17 gm Potassium Chloride (Klor-Con M10) 10 meq PO DAILY [facility] Stop: 05/03/18 08:59 Last Admin: 04/08/18 13:03 Dose: Not Given Tramadol HCl (Ultram) 50 mg PO Q4 PRN PRN Reason: Pain Stop: 05/02/18 23:28 Last Admin: 04/06/18 18:00 Dose: 50 mg Tramadol HCl (Ultram) 100 mg PO Q12@0700,1900 [facility] Stop: 05/06/18 18:59 Last Admin: 04/08/18 06:08 Dose: 100 mg Vitamin D (Vitamin D3) 2,000 units PO DAILY [facility] Stop: 05/03/18 08:59 Last Admin: 04/08/18 13:04 Dose: Not Given _ (1) Fatigue Encounter type: Fatigue type: unspecified Trimester: Qualified Code(s): R53.83 - Other fatigue (2) Chronic back pain Back pain laterality: unspecified Back pain location: back pain in unspecified location Sciatica laterality: Sciatica presence: Qualified Code (s): M54.9 - Dorsalgia, unspecified; G89.29 - Other chronic pain (3) Osteoarthritis of multiple joints Osteoarthritis type: unspecified Qualified Code(s): M15.9 - Polyosteoarthritis, unspecified
[2018-04-08] MEDS: LISINOPRIL 5 MG TAB PO SCH (20:18)
[2018-04-09] MEDS: POLYETHYLENE (MIRALAX) 17 GM PACK PO PRN (02:34)
[2018-04-09] MEDS: SODIUM CHLORIDE 0.9% 1000ML 1,000 ML IV SCH (02:57)
[2018-04-09] MEDS: LEVOTHYROXINE SODIUM 100 MCG TABLET PO SCH (05:57)
[2018-04-09] MEDS: CeleBREX 200 MG CAP PO SCH (08:45)
[2018-04-09] MEDS: TRAMADOL HCL 50 MG TABLET PO SCH (08:45)
[2018-04-09] MEDS: HEPARIN SOD 5,000 UNIT/0.5 ML VIAL SQ SCH (08:45)
[2018-04-09] MEDS: CALCIUM CARBONATE 1250MG TAB PO SCH (08:46)
[2018-04-09] MEDS: POTASSIUM CHLORIDE 10 MEQ TABCR PO SCH (08:46)
[2018-04-09] MEDS: FUROSEMIDE 20 MG TAB PO SCH (08:46)
[2018-04-09] MEDS: CHOLECALCIFEROL 1,000 UNITS TAB PO SCH (08:47)
[2018-04-09] MEDS: DICLOFENAC SOD 1% GEL 100 GM TUBE EXT SCH ×3 (08:47→16:21)
[2018-04-09] MEDS: PANTOprazole 40 MG TAB PO SCH (08:47)
--- NOTE | 2018-04-09 10:51 | Orthopedic Progress Note ---
Date of Service April 09, 2018 Assessment & Plan (1) Septic olecranon bursitis: Antibiotics as per Med/ID service planning for midline for 21 days of IV antibx Continue daily dressing changes. Follow up with Dr Flores in 1 week. Ortho will sign off at this time. Please call with any questions. Subjective POD 2 s/p left elbow I&D. Pt resting comfortably. Awake, alert. No complaints. Comfortable. Physical Exam 2 Vital Signs (Past 24 Hours): Last Vital Signs Temp 36.9 C 04/09/18 07:00 Pulse 103 H 04/09/18 07:00 Resp 18 04/09/18 07:00 BP 115/77 04/09/18 07:00 Pulse Ox 100 04/09/18 07:00 Physical Exam: Dressings removed. Erythema and swelling continue to decrease. All packing removed. Mild amount of serous drainage expressed from the wound. No foul odor. Good ROM of the elbow. Wound redressed.
--- NOTE | 2018-04-09 10:57 | Infectious Disease Progress Nt ---
Date of Service April 09, 2018 Assessment & Plan (1) Olecranon bursitis of left elbow: will change to rocephin, follow OR cultures. duration in range of 21 days will need picc line and weekly cbc, cpm, esr while on abx. ok for d/c when otherwise stable, can followup with ID post d/c. Subjective pt for picc line/midline today. underwent dressing changed, packing removed. resting comfortably. eating well. changed to rocephin yesterday, tolerating well. no f/c. no am labs. OR cultures now growing S. aureus as well. final pending. blood cultures remain negative. Physical Exam 2 Vital Signs (Past 24 Hours): Last Vital Signs Temp 36.9 C 04/09/18 07:00 Pulse 103 H 04/09/18 07:00 Resp 18 04/09/18 07:00 BP 115/77 04/09/18 07:00 Pulse Ox 100 04/09/18 07:00 Constitutional: WD/WN, vitals as above Eyes: PERRL, conjunctivae normal, anicteric sclerae ENMT: external ear and nose normal, oropharynx normal Neck: normal visual inspection Respiratory: normal respiratory effort, lungs clear to auscultation Cardiovascular: RRR, no murmur, no edema Gastrointestinal (Abdomen): normal bowel sounds, soft, nontender, no hepatosplenomegaly Skin: no rashes, warm and dry Psychiatric: A+Ox3, euthymic affect Results & Data Laboratory Results Microbiology 04/07/18 16:58 Elbow Gram Stain - Final 04/07/18 16:58 Elbow Aerobic and Anaerobic Culture - Preliminary Staphylococcus aureus 04/05/18 13:39 Elbow,Left Gram Stain - Final 04/05/18 13:39 Elbow,Left Aerobic and Anaerobic Culture - Preliminary Staphylococcus aureus 04/04/18 14:57 Blood Blood Culture - Preliminary No growth to date. 04/04/18 14:49 Blood Blood Culture - Preliminary No growth to date.
[2018-04-09] MEDS: cefTRIAXone SODIUM 2,000 MG in DEXTROSE 5% 50 ML IV SCH (14:19)
--- NOTE | 2018-04-14 10:32 | Discharge Summary ---
Date of Service April 09, 2018 Admission HPI Per Admitting Provider Patient is a pleasant 77yo F who presents from PCPs office for hypoxia and continued dyspnea at rest and on exertion for 2 weeks. Two weeks ago, she presented to her PCP for dyspnea, was found to be hypoxic with peripheral edema , and she was sent to [facility] for evaluation. At [facility], she was worked up for dyspnea, was told everything was negative, that she didn't have PE/CHF/ need for oxygen, was kept overnight for observation, felt she did not require home oxygen and was sent home on lasix 20 mg daily. Today she was seen by her PCP for follow up to this hospital visit and was found to have an O2Sat of 88% on room air and reported continued dyspnea at rest and exertion, and was sent for further evaulation. Of note, patient smoked 1ppd x 30 years but quit about 25 years ago. She states she has never been told and has never heard of "COPD." She has not been feeling unwell lately but does note an upset stomach which she thinks is from her aspirin. PMH: -GERD--esomeprazole -HTN--lisinopril 5 -Chronic back pain on celebrex and tramodol. *Percocet on her med list but pt does not use anymore -Leg cramps, severe-uses diazepam prn PSH: -Lung surgery for fatty tumors -Cholecystectomy Admission Exam Per Admitting Provider Constitutional: WD/WN, vitals as above average body habitus; not ill appearing Eyes: PERRL, conjunctivae normal, anicteric sclerae ENMT: external ear and nose normal, oropharynx normal Neck: normal visual inspection Respiratory: normal respiratory effort; no labored breathing Auscultation: + crackles (bibasilar); no wheezes Cardiovascular: RRR, no murmur, no edema Extremities: no pedal edema and no edema Gastrointestinal (Abdomen): normal bowel sounds, soft, nontender, no hepatosplenomegaly Musculoskeletal: no cyanosis or clubbing, extremities motor strength 5/5 Skin: + turgor decreased and + wound (2 lesions on anterior shins. LLE some drainage noted, 2-3 cm; RLE-small, healing) Neurologic: PERRL, EOMI, accommodation nl, no face palsy, no dysarthria Psychiatric: A+Ox3, euthymic affect Principal Diagnosis Left olecranon bursitis, MSSA Discharge Exam Constitutional WD/WN, vitals as above Eyes PERRL, conjunctivae normal, anicteric sclerae ENMT external ear and nose normal, oropharynx normal Neck trachea midline, no thyromegaly Respiratory normal respiratory effort, lungs clear to auscultation Cardiovascular RRR, no murmur, no edema Gastrointestinal (Abdomen) normal bowel sounds, soft, nontender, no hepatosplenomegaly Musculoskeletal no cyanosis or clubbing, extremities motor strength 5/5 Extremities: + extremities abnormal to inspection (left elbow wrapped tightly with luisa wrap, packing removed) Skin no rashes, warm and dry Neurologic patellar DTR's 2+ bilat, sensation intact and PERRL, EOMI, accommodation nl, no face palsy, no dysarthria Psychiatric A+Ox3, euthymic affect Lymphatic no cervical or axillary lymphadenopathy Discharge Data Allergies Allergy/AdvReac Type Severity Reaction Status Date / Time [id number] Reductase Allergy Intermediate Muscle Pain Verified 04/02/18 17: 30 Inhibitor UNKNOWN ANTIBIOTICS Allergy Unknown CAN'T Uncoded 04/02/18 17:30 REMEMBER Consultations 04/02/18 19:34 ED Decision to Admit Stat 04/02/18 23:29 Consult Case Management - Discharge Planning Routine 04/03/18 11:14 Consult Health Information Management Routine 04/04/18 17:49 Consult Orthopedic Surgery Routine 04/06/18 11:42 Consult Infectious Diseases Routine Procedures Performed Operation Date: 04/07/18 07:00 Actual Procedures p Left Septic Olecranon Bursa Incision and Drainage(Left) - Pravin Flores MD Ordered Studies 04/02/18 16:50 CT angio chest PE protocol Stat 04/04/18 13:10 CT abd pelvis oral and IV con Routine Hospital Course (1) Olecranon bursitis of left elbow: had the elbow drained about 2 weeks ago in her PCP's office. the elbow felt much better per patient history, but the bursal swelling has come back. she is on celebrex BID chronically and this medication could be partially treating and/or masking the primary process in the bursa. 3-4cc of jessica colored fluid aspirated by Dr. Flores on 04/05 no crystals seen gram stain showed many WBC, rare gram positive cocci, grew out MSSA washout of left olecranon bursa on 04/07, tolerated well abx changed to Rocephin, ID recommends 21-28 days of treatment, PICC line placed arranged for Rocephin daily at [facility] outpatient treatment unit will need to check BMP, CBC, ESR weekly follow up with ortho and ID (2) Elevated sed rate: >90; CRP also elevated. no symptoms of temporal arteritis no clear-cut symptoms to suggest PMR suspect it is due to olecranon bursitis given the infection also, given the fact that elbow was swollen 2 weeks ago this would explain chronic inflammation follow ESR weekly as outpatient (3) Migraine: gets these at home, likely triggered by poor sleep and not eating some relief with Imitrex and IV fluids no migraine on the day of discharge (4) Tachycardia: resolved (5) Dyspnea on exertion: CTA chest w/o PEs, pneumonia, etc. emphysematous changes seen but I don't suspect this is the primary cause of WHITING but certainly is likely contributing. WHITING could be restrictive lung disease from scoliosis. WHITING could be undiagnosed CAD. echo w/o wall motion abnormalities. O2 sats in RA at rest and with walking have been acceptable. can follow up outpatient (6) Chronic back pain: 2nd to scoliosis. cannot rule out spinal stenosis, etc. treat symptoms for now. refer back to ortho spine after discharge. (7) Leg cramps: checked Fe studies, mag, b12, etc - all wnl. She has muscle wasting of the thighs -- does she have a peripheral neuropathy causing such? consider neurology consult after discharge. no further work up inpatient (8) Abnormal chest CT: nodules needs outpatient f/u for this in light of prior tobacco use (9) Acquired hypothyroidism: TSH wnl cont synthroid (10) Osteoarthritis of multiple joints: severe OA celebrex BID (11) Fatigue: CT abd/pelvis and nothing was found to explain the fatigue. Again no evidence of temporal arteritis or PMR. No spinous process pain to suggest diskitis or abscess of back. could consider rheum evaluation and/or heme-onc evaluation but would do this as outpatient (12) Abnormal echocardiogram: echo findings c/w volume contracted state hydrate (13) DVT prophylaxis: heparin 5000 BID Total Time Total Time Spent Total Time Spent (In Minutes): 35 minutes Total Time Includes: Examination of the Patient, Discharge Planning, Medication Reconciliation and Communication With Other Providers Discharge Plan Discharge Items Patient Disposition: Home - Home Health Services Reason For Visit: HYPOXIA, DYSPNEA Discharge Diagnosis: Left olecranon bursitis, Staph aureus infection Condition: Good Discharge Goals: Decrease discomfort, Improve disease control and Therapeutic intervention Activity: Per 'Additional Instructions' section Lifting: None Bathing: Keep incision dry Exercise/Sports: None Non-emergency contact: Primary Care Provider and Surgeon Call non-emergency contact if: you have any medication questions, your symptoms worsen, your pain is not controlled and you have a fever Diet: Heart Healthy Other Ambulatory Orders: Complete Blood Count with Diff (Routine) Timeframe: 1 Week Location: Determined by Patient Ordered By: Maninder Barbosa Comprehensive Metabolic Panel (Routine) Timeframe: 1 Week Location: Determined by Patient Ordered By: Maninder Barbosa Erythrocyte Sedimentation Rate (Routine) Timeframe: 1 Week Location: Determined by Patient Ordered By: Maninder Barbosa Addtl Provider Instructions: Medications: no changes to home meds - ROCEPHIN: IV antibiotic to receive once a day at [facility], script already sent, set up tomorrow for noon Left olecranon bursitis with washout, culture grew out Staph aurus, sensitive to methicillin continue Rocephin for 21-28 days, can follow up with infectious disease in 2- 3 weeks follow up with orthopedic surgery as designated below Lung nodules seen on CT chest given your smoking history you should have a repeat CT chest with IV contrast in 3 months, your PCP can arrange this test FOLLOW UP - Dr. Flores in 7-10 days, call his office for appointment - Dr. Leary in one week, call his office for appointment - Dr. Perez, infectious disease, in 2-3 weeks, call [phone] Daily dressing changes. Use 4x4's, kerlix wrap, and an luisa wrap. Keep dressing clean and dry. You may shower if you keep a waterproof covering over the left elbow. Otherwise no showers until wound is closed. No tub baths. Do not soak the wound. You can do gentle range of motion of the elbow regularly. Do not lift anything heavier than a glass of water with the left arm at this time. No direct pressure on the wound. (do not lean on your elbow etc) Follow up with Dr Flores in 7-10 days. Call for an appointment. [phone] Call the office if you notice increased drainage, increased redness around the wound, increased temperature of 101.5 or greater. Prescriptions: Continue celecoxib [Celebrex] 200 mg Capsule 200 mg PO BID RF: 0 hydrocodone-acetaminophen 5-325 mg Tablet 1 tab PO Q6H PRN (Reason: Pain) RF: 0 potassium chloride 10 mEq Tablet Extended Release 10 meq PO DAILY RF: 0 tramadol 50 mg Tablet 50 mg PO Q4 PRN (Reason: Pain) RF: 0 levothyroxine [Synthroid] 100 mcg Tablet 100 mcg PO DAILY RF: 0 meclizine 25 mg Tablet 25 mg PO TID PRN (Reason: Dizziness) RF: 0 esomeprazole magnesium 40 mg Capsule,Delayed Release(Dr/Ec) 40 mg PO DAILY RF: 0 lisinopril 5 mg Tablet 5 mg PO HS RF: 0 furosemide [Lasix] 20 mg Tablet 20 mg PO DAILY RF: 0 diazepam 5 mg Tablet 5 mg PO DAILY RF: 0 calcium carbonate [Calcium 600] 600 mg calcium (1,500 mg) Tablet 600 mg PO DAILY RF: 0 cholecalciferol (vitamin D3) [Vitamin D3] 2,000 unit Capsule 2,000 unit PO DAILY RF: 0 vit C-rut-hesp cmp-bioflav,cit [Special C] 312-34-12-200 mg Tablet 1 tab PO DAILY RF: 0 Stand-Alone Forms: [facility] Discharge Orders: Discharge Order (Routine); Ordered 04/09/18 Ordered By: Maninder Barbosa Admission Data Admit Date/Time: 04/02/18 23:13 Attending Provider: Maninder Barbosa Admit Provider: Yoana Quintero Primary Care Provider: Tyrone Leary Other Providers: Dina Perez ; Pravin Flores Service: Medical Other Interventions: Discharge Summary Assessment (RN) Last Done: 04/09/18 14:40 Pending Studies at Discharge: No DC Date/Time DO NOT enter until pt leaves facility: 04/09/18 18:30
== END 2018-04-09 18:30 | disposition home health service (06) | DRG 502 ==
LOC: ED 16:22 → 4E 16:22 → SUATTDRO 23:13

== ENCOUNTER 2020-10-15 05:10 | Observation (INO) ==
--- NOTE | 2020-09-24 09:13 | Anesthesiology Consultation ---
Date of Service September 24, 2020 Assessment & Plan (1) Encounter for pre-operative examination: - COVID screening: Per assessment on 09/24: Travel screen negative and no known COVID-19 positive contacts. Patient had COVID 12/2019 ([facility]) > symptoms at time of dyspnea, body aches, fatigue, weakness, low grade fever, admitted to [facility] x 5 days > symptoms resolved except residual cough (controlled with inhaler PRN). Patient vaccinated. Surgeon arranging preop COVID testing. Awaiting results. - S/P Left I&D septic olecranon bursa (04/07/18): LMA#4 at [facility] Chart Review Chart Review: Acceptable Risk for Surgery and Patient seen in Pre Admission Testing Teaching & Discussion Pre-Anesthesia Teaching/Discussion Notes: Instructed NPO after midnight before surgery,except medications with 15 cc of water. Medication instructions provided according to the PAT guidelines. History Surgery Operation Date: 10/15/20 11:25 Proposed Procedures p Right Anterior Total Hip Arthroplasty - Tarik Contreras, Height/Weight Height: 4 ft 7 in Weight: 57.2 kg Allergies Allergy/AdvReac Type Severity Reaction Status Date / Time Penicillins AdvReac Intermediate Syncope Verified 09/24/20 09:05 ("blacked out") Ffqfptr-Lvx-Dyg Reductase AdvReac Intermediate Muscle Pain Verified 09/24/20 09:05 Inhibitor UNKNOWN ANTIBIOTICS Allergy Unknown Remote Uncoded 09/24/20 10:06 unknown abx (during bowel sx) > scalp itchiness Medications Home Medications Medication Instructions Recorded Confirmed Last Taken Special C 2 tab PO QPM 04/02/18 09/20/20 04/02/18 calcium carbonate [Calcium 600] 600 mg PO HS 04/02/18 09/20/20 04/02/18 celecoxib [Celebrex] 200 mg PO QPM 04/02/18 09/20/20 04/02/18 AM cholecalciferol (vitamin D3) 2,000 unit PO QPM 04/02/18 09/20/20 04/02/18 [Vitamin D3] esomeprazole magnesium 40 mg PO QAM 04/02/18 09/20/20 04/02/18 hydrocodone-acetaminophen 1 tab PO Q6H PRN 04/02/18 09/20/20 Unknown levothyroxine [Synthroid] 100 mcg PO HS 04/02/18 09/20/20 04/02/18 meclizine 25 mg PO TID PRN 04/02/18 09/20/20 04/01/18 tramadol 50 mg PO Q4 PRN 04/02/18 09/20/20 04/02/18 acetaminophen [Tylenol Extra 1,000 - 1,500 mg PO Q6H PRN 06/12/20 09/20/20 Unknown Strength] duloxetine 30 mg PO QPM 06/12/20 09/20/20 Unknown phenazopyridine [Azo] 190 mg PO QPM 06/12/20 09/20/20 Unknown albuterol sulfate [Ventolin HFA] 2 puff INHALATION Q4 PRN 09/20/20 09/20/20 Unknown aspirin [Aspirin Low Dose] 81 mg PO HS 09/20/20 09/20/20 Unknown cyclobenzaprine 10 mg PO HS 09/20/20 09/20/20 Unknown fluticasone propion-salmeterol 2 puff INHALATION BID 09/20/20 09/20/20 Unknown [Advair HFA] furosemide [Lasix] 20 mg PO QAM 09/20/20 09/20/20 Unknown lisinopril 2.5 mg PO HS 09/20/20 09/20/20 Unknown magnesium-vit [id number]-bzlzklzi-ysxa 1 tab PO QPM 09/20/20 09/20/20 Unknown metoprolol succinate 50 mg PO HS 09/20/20 09/20/20 Unknown multivitamin with minerals 2 tab PO QPM 09/20/20 09/20/20 Unknown [Hair,Skin and Nails] potassium chloride 10 meq PO QAM 09/20/20 09/20/20 Unknown prednisone 5 mg PO QAM 09/20/20 09/20/20 Unknown psyllium husk [Metamucil] 1.04 g PO QPM 09/20/20 09/20/20 Unknown Past Medical History Medical History (Updated 09/24/20 @ 10:08 by Maria Isabel Adams) Bulging discs Cervical- no ROM limitations per pt Chronic obstructive pulmonary disease stable Cough Started in 06/2020--pt was found to have developed a "small lung nodule due to COVID 19"--prescribed inhaler prn which has controlled cough since CVA (cerebral vascular accident) "Mild" stroke (2018), no deficits Depression Hx Flashing lights Occasional (2-3x/week)- takes Meclizine PRN per pt GERD (gastroesophageal reflux disease) controlled Hiatal hernia History of COVID-19 Dx 12/2019 ([facility]) > symptoms at time of dyspnea, body aches, fatigue, weakness, low grade fever, admitted to [facility] x 5 days > symptoms resolved except residual cough (controlled with inhaler PRN) Hyperlipidemia No meds Hypertension Hypothyroid Hx goiter > given iodine tx, now on levothyroxine Hypoxia Migraine Osteoarthritis Poor historian Scoliosis Swelling of lower extremity Hx LE/feet swelling- per pt, reason for prednisone 5mg daily which controls issue (pt states she believes swelling r/t reaction to previous voltaren use) Exercise / Class Metabolic Activity III < 4 Walking/Shop/Light housework (walker/cane (No CP, no SOB with walking)) Past Family History Family History Mother Family history of diabetes mellitus Past Surgical History Surgical History History of bowel resection x2- 2/2 diverticulitis (+ cholecystectomy) History of colonoscopy Multiple History of esophagogastroduodenoscopy (EGD) History of lung surgery Fatty tumors excision S/P breast biopsy, bilateral Benign S/P foot surgery, right Bunionectomy Past Anesthesia History No Hx of Anesthesia Complications and No Family Hx of Anesthesia Complications History of PONV No Hx of PONV and No Hx of Motion Sickness Social History Smoking Status: Former smoker Do You Dip or Chew Tobacco: No Smoking End Date: Quit 25 years ago (hx 20 cigs/day) Hx Alcohol Use: No Hx Substance Use: No substance use type: does not use Review of Systems Patient denies chest pain, shortness of breath, fever, chills, cough, wheezing, palpitations. Physical Exam Vital Signs VITALS BP 101/59 P 69 TEMP 98.7 SP02 95%RA RESP 16 PHYSICAL Full cervical extension range of motion. Full TMJ range of motion. TMD 3 finger breaths Mallampati Score 3 Dentition: full upper denture, several missing molars Lungs: clear throughout to auscultation Cardiac: regular rate and rhythm, no murmurs noted Spine: + scoliosis Carotid arteries: negative bruit Extremities: no edema Lab Results Anesthesia Preop Results Results Anesthesia Widget: WBC 15.40 K/uL (4.8-10.8) H 09/24/20 Hgb 13.0 g/dL (12.0-16.0) 09/24/20 Hct 40.7 % (37-47) 09/24/20 Plt 461 K/uL (130-400) H 09/24/20 Na 134 mmol/L (136-145) L 09/24/20 K 4.6 mmol/L (3.5-5.1) 09/24/20 Cl 101 mmol/L (98-107) 09/24/20 CO2 31 mmol/L (21-32) 09/24/20 BUN 25 mg/dl (7-18) H 09/24/20 Creat 0.88 mg/dl (0.6-1.2) 09/24/20 Glucose Level 84 mg/dl (70-99) 09/24/20 PT 10.3 Seconds (9.0-12.0) 09/24/20 PTT 26.5 Seconds (21.0-31.0) 09/24/20 INR 1.0 (0.9-1.1) 09/24/20 Blood Type A Positive 09/24/20 Antibody Screen NEGATIVE 09/24/20 Lab Comments: Elevated WBC- patient taking chronic prednisone daily, report to be forwarded to PCP for continuity of care* Testing Electrocardiogram Date: 12/20/19 SR at 60 bpm. Possible LAE. Chest X-Ray Date: 09/24/20 FINDINGS: There is a right-sided aortic arch. The heart is normal in size. There is no failure. There is no focal pulmonary consolidation. There are minor basilar atelectatic changes. There is underlying pulmonary emphysema. There is subpleural interstitial opacities within the left upper lung zone, likely chronic, but not appreciated on the prior study. There are arthritic changes within the right shoulder. IMPRESSION: Right aortic arch. Pulmonary emphysema. Mild basilar atelectasis. Nonspecific subpleural interstitial opacities within the left upper lung zone, likely chronic, but not appreciated on the prior study. Report to be forwarded to PCP for continuity of care* Echocardiogram Date: 04/03/18 LVEF 70%. No regional motion abnormality. LV is small. Mild concentric LVH. Mild TR. Flattened septum consistent with RV pressure/volume overload. Stress Test Date: 06/23/18 Normal myocardial perfusion SPECT images without evidence for pharmacologically induced ischemia. LVEF post-rest at high normal at 96% (likely spuriously elevated secondary to small left ventricular cavity). Stress test was done for preoperative examination and per cardiology note on stress test: "I see no cardiac contraindication to the planned left arm plastic surgery." Left I&D done 04/07/2018 at [facility].
--- NOTE | 2020-10-11 16:10 | History & Physical Report ---
Date of Service October 11, 2020 Assessment & Plan (1) Osteoarthritis of right hip: We will proceed with a right anterior total hip arthroplasty. Postoperatively she will be started on aspirin for DVT prophylaxis and kept overnight in the hospital for postoperative medical management. She plans to use home health upon discharge. History of Present Illness Chief Complaint: Osteoarthritis of the right hip. Primary Care Provider: NO PCP Litzy is a pleasant 80-year-old female who is been having a year-long history of increasing right hip pain. She has been using a walker since March. She also then uses a wheelchair. X-rays show advanced osteoarthritis right is incomplete collapse of the right femoral head. After failing conservative treatment, she has elected proceed with a right total hip arthroplasty.. Allergies Allergy/AdvReac Type Severity Reaction Status Date / Time Penicillins AdvReac Intermediate Syncope Verified 09/24/20 09:05 ("blacked out") Drgsgkc-Sod-Dgu Reductase AdvReac Intermediate Muscle Pain Verified 09/24/20 09:05 Inhibitor UNKNOWN ANTIBIOTICS Allergy Unknown Remote Uncoded 09/24/20 10:06 unknown abx (during bowel sx) > scalp itchiness Home Medications Medication Instructions Recorded Confirmed Type calcium carbonate 600 mg calcium 600 mg PO HS 04/02/18 09/20/20 History (1,500 mg) tablet (Calcium) celecoxib 200 mg capsule (Celebrex) 200 mg PO QPM 04/02/18 09/20/20 History cholecalciferol (vitamin D3) 50 2,000 unit PO QPM 04/02/18 09/20/20 History mcg (2,000 unit) capsule (Vitamin D3) esomeprazole magnesium 40 mg 40 mg PO QAM 04/02/18 09/20/20 History capsule,delayed release hydrocodone 5 mg-acetaminophen 325 1 tab PO Q6H PRN 04/02/18 09/20/20 History mg tablet levothyroxine 100 mcg tablet 100 mcg PO HS 04/02/18 09/20/20 History (Synthroid) meclizine 25 mg tablet 25 mg PO TID PRN 04/02/18 09/20/20 History tramadol 50 mg tablet 50 mg PO Q4 PRN 04/02/18 09/20/20 History vit C 500 mg-rutin 10 mg-hesperidn 2 tab PO QPM 04/02/18 09/20/20 History cmp 10 mg-bioflav,cit 200 mg tablet (Special C) acetaminophen 500 mg capsule 1,000 - 1,500 mg PO Q6H PRN 06/12/20 09/20/20 History duloxetine 30 mg capsule,delayed 30 mg PO QPM 06/12/20 09/20/20 History release phenazopyridine 95 mg tablet 190 mg PO QPM 06/12/20 09/20/20 History albuterol sulfate 90 mcg/actuation 2 puff INHALATION Q4 PRN 09/20/20 09/20/20 History aerosol inhaler (Ventolin HFA) aspirin 81 mg tablet,delayed 81 mg PO HS 09/20/20 09/20/20 History release (Aspirin Low Dose) cyclobenzaprine 10 mg tablet 10 mg PO HS 09/20/20 09/20/20 History fluticasone propionate 230 2 puff INHALATION BID 09/20/20 09/20/20 History mcg-salmeterol 21 mcg/actuation HFA inhaler (Advair HFA) furosemide 20 mg tablet (Lasix) 20 mg PO QAM 09/20/20 09/20/20 History lisinopril 2.5 mg tablet 2.5 mg PO HS 09/20/20 09/20/20 History magnesium-vit P7-texqcuwg-vwnq 1 tab PO QPM 09/20/20 09/20/20 History tablet metoprolol succinate 50 mg 50 mg PO HS 09/20/20 09/20/20 History tablet,extended release 24 hr multivitamin with minerals 2 tab PO QPM 09/20/20 09/20/20 History (Hair,Skin and Nails) potassium chloride 10 mEq 10 meq PO QAM 09/20/20 09/20/20 History tablet,extended release prednisone 5 mg tablet 5 mg PO QAM 09/20/20 09/20/20 History psyllium husk 0.52 gram capsule 1.04 g PO QPM 09/20/20 09/20/20 History (Metamucil) Past Med/Surg History Medical History Bulging discs Cervical- no ROM limitations per pt Chronic obstructive pulmonary disease stable Cough Started in 06/2020--pt was found to have developed a "small lung nodule due to COVID 19"--prescribed inhaler prn which has controlled cough since CVA (cerebral vascular accident) "Mild" stroke (2018), no deficits Depression Hx Flashing lights Occasional (2-3x/week)- takes Meclizine PRN per pt GERD (gastroesophageal reflux disease) controlled Hiatal hernia History of COVID-19 Dx 12/2019 ( [facility]) > symptoms at time of dyspnea, body aches, fatigue, weakness, low grade fever, admitted to [facility] x 5 days > symptoms resolved except residual cough (controlled with inhaler PRN) Hyperlipidemia No meds Hypertension Hypothyroid Hx goiter > given iodine tx, now on levothyroxine Hypoxia Migraine Osteoarthritis Poor historian Scoliosis Swelling of lower extremity Hx LE/feet swelling- per pt, reason for prednisone 5mg daily which controls issue (pt states she believes swelling r/t reaction to previous voltaren use) Surgical History History of bowel resection x2- 2/2 diverticulitis (+ cholecystectomy) History of colonoscopy Multiple History of esophagogastroduodenoscopy (EGD) History of lung surgery Fatty tumors excision S/P breast biopsy, bilateral Benign S/P foot surgery, right Bunionectomy Family History Mother Family history of diabetes mellitus Social History Smoking Status: Former smoker Second Hand Exposure: No; Hx Alcohol Use: No Hx Substance Use: No Preferred Language: Sammarinese Communication Ability: Effective Flare Breaker Required: No Beliefs That Will Affect Care: None Current Living Situation: Spouse and Family Current Living Situation Comment: Lives with and granddaughter Feels Safe at Home: Yes Assistive Devices: Denture - Upper, Glasses and Walker Review of Systems All systems reviewed & are unremarkable except as noted in HPI & below. Physical Exam On physical examination of the right hip, she is in a wheelchair. She is a lot of pain with with internal and external rotation of her hip. All of her pain is located in her groin.. Constitutional WD/WN, vitals as above Eyes PERRL, conjunctivae normal, anicteric sclerae ENMT external ear and nose normal, oropharynx normal Neck trachea midline, no thyromegaly Respiratory normal respiratory effort Cardiovascular RRR, no murmur, no edema Gastrointestinal (Abdomen) normal bowel sounds, soft, nontender, no hepatosplenomegaly Psychiatric A+Ox3, euthymic affect Results & Data Results & Data Laboratory Results . Diagnostic Findings X-rays of the right hip and pelvis show advanced osteoarthritis with complete collapse of the femoral head.. PG Care Time/CCT Total # of Minutes Spent Total Time Spent with Patient: Total time spent is greater than 50% in coordination of care (as documented) at patient's floor/unit and/or counseling patient: Coding Level of Care Code None Diagnoses Osteoarthritis of right hip M16.11
[2020-10-15] MEDS ORDERED: dexAMETHasone 4 MG TAB PO SCH (06:00)
[2020-10-15] MEDS ORDERED: TRANEXAMIC ACID 1,000 MG **IV Pre-op IV SCH (06:00)
[2020-10-15] MEDS ORDERED: GABAPENTIN 300 MG CAP PO SCH (06:00)
[2020-10-15] MEDS ORDERED: FAMOTIDINE 20 MG TAB PO SCH (06:00)
[2020-10-15] MEDS ORDERED: ACETAMINOPHEN 500 MG TAB PO SCH (06:00)
[2020-10-15] MEDS ORDERED: LR 500ML BOLUS, THEN 15ML/HR IV SCH (06:00)
[2020-10-15] MEDS ORDERED: ROPIVACAINE 0.5% HCL/PF 150 MG, BUPIVACAINE 0.75% MPF 20 ML, EPINEPHrine 30MG/30ML (OR ... INFIL SCH (06:00)
[2020-10-15] MEDS ORDERED: LR 60ML/HR IV SCH (06:00)
[2020-10-15] MEDS ORDERED: TRANEXAMIC ACID 1,000 MG **IV Intra-op IV SCH (06:00)
[2020-10-15] MEDS ORDERED: ceFAZolin 1000MG 1,000 MG/7.5 ML SYR IV SCH (06:00)
[2020-10-15] MEDS ORDERED: BUPIVACAINE 0.5 % 5 MG/1 ML PF 10ML VIAL ONE (06:28)
--- NOTE | 2020-10-15 06:36 | History & Physical Bridge Note ---
Date of Service October 15, 2020 History & Physical Bridge Note I have examined the patient, reviewed the History & Physical and in the interval since the performance of the History & Physical I have noted the following changes of clinical significance: no changes noted
[2020-10-15] MEDS ORDERED: ORTHO JOINT ANESTHETIC ONE (06:37)
[2020-10-15] MEDS ORDERED: MIDAZOLAM HCL 1 MG/ML 2ML VIAL ONE (06:41)
[2020-10-15] MEDS ORDERED: PROPOFOL IV EMULSION 10 MG/ML 20 ML VIAL IV ONE (06:41)
[2020-10-15] MEDS ORDERED: fentaNYL citrate 100 MCG/2 ML VIAL ONE (06:41)
[2020-10-15] MEDS ORDERED: ePHEDrine sulfate 50 MG/ML AMP IV PRN (06:43)
[2020-10-15] MEDS ORDERED: ATROPINE SULFATE 0.1 MG/ML 10ML SYR IV PRN (06:43)
[2020-10-15] MEDS ORDERED: fentaNYL citrate 100 MCG/2 ML VIAL IV PRN (06:43)
[2020-10-15] MEDS ORDERED: ONDANSETRON INJ 2 MG/ML 2 ML VIAL IV PRN ×2 (06:43→10:26)
[2020-10-15] MEDS ORDERED: HYDROmorphone INJ 2 MG/ML SYR/VIAL IV PRN (06:43)
[2020-10-15] MEDS ORDERED: PHENYLEPHRINE HCL 10 MG/ML VIAL ONE (07:32)
--- NOTE | 2020-10-15 08:39 | Operative Report ---
PG Post Operative Report Pre & Post Diagnosis Operation Date: 10/15/20 07:00 Pre-Op Diagnosis: Degenerative Joint Disease Right Hip Post-Op Diagnosis: Degenerative Joint Disease Right Hip I identified the patient and participated in the time-out.: Yes Procedure Operation Date: 10/15/20 07:00 Actual Procedures p Right Anterior Total Hip Arthroplasty(Right) - Tarik Contreras DO Surgeon Tarik Contreras DO Corn Press Operator Tarik Jama PAC Estimated Blood Loss 250 Findings Consistent with Post-Op Diagnosis Specimens Right femoral head Complications none Disposition Disposition: Recovery Room Indications Litzy is a pleasant 80-year-old female who is been dealing with chronic worsening right hip and groin pain. She is downgraded to a walker because of her hip pain. X-rays and clinical examination were diagnostic for complete collapse of the femoral head. After failing conservative treatment, she elected proceed with a right total hip arthroplasty. Description of Procedure Implants used I used a Zimmer[employer]omet total hip arthroplasty system with a size 2 standard offset Avenir Complete stem, a 48 mm G7 Osseoti multihole cup with a 25mm screw, an E1 polyethylene liner, a 38 dual mobility liner with a 28 mm ceramic head with a -3.5 neck. Litzy arrived at the hospital for the above procedure. She was seen in the preoperative holding area and the operative extremity was identified and signed. She was given a spinal anesthetic, a preoperative antibiotic, and TXA. She was then taken back to the operating room and laid on the table in the supine position. She was given basic sedation. The operative leg was secured to a Puristst leg positioner. The hip was then prepped and draped in sterile fashion. A timeout was done and the patient and the operative extremity was properly identified. An anterior approach was used. Dissection was taken down through the fascia and the tensor muscle belly was retracted laterally and the rectus was retracted medially. The circumflex vessels were identified and ligated. The capsule was then incised and tagged for later repair. The femoral neck was then cut and the femoral head was removed. The acetabulum was exposed. Time was spent doing a complete circumferential labral release. Sequential reaming of the acetabulum up to a size 47 reamer was done. Final reamings were done under fluoroscopy to ensure appropriate version. A Biomet 48 mm G7 Osseoti multihole cup was then impacted into place. A single 25 mm screw was placed. The metal liner was then snapped into place. Surrounding soft tissues were then injected with 100 cc of an orthopedic pain control cocktail. The proximal femur was then exposed. Sequential broaching up to a size 2 broach was done. Off that broach a size 38 dual mobility liner with a 28 mm head with a -3.5 neck was trialed. The hip was reduced and fluoroscopic images showed anatomic alignment of the implants in acceptable length. The broach was removed. The final size 2 standard offset Avenir Complete stem was then impacted into place. A ceramic 38 mm dual mobility liner with a 28 mm ceramic head with a -3.5 neck was then impacted onto the stem and the hip was reduced. Final fluoroscopic images showed anatomic alignment of the hip. The capsule was then closed with #1 Vicryl suture. A dilute betadyne lavage was then done for 3 minutes. The joint was then irrigated with normal saline solution. The fascia was closed with #1 PDS suture. Skin was closed with 2-0 Vicryl, per, and a Silverlon dressing. She was then transferred to a hospital bed and taken to the post anesthesia care unit in stable condition. She tolerated the procedure well. Tarik Jama PA-C, was present for the entire procedure. He was critical for patient positioning, prepping, draping, retraction exposure, wound closure and application of sterile dressing. I attest to the content of the Intraoperative Record and any orders documented therein. Any exceptions are noted below.
--- NOTE | 2020-10-15 09:41 | XRay Report ---
XR hip 1V RT w pelvis HISTORY: 80 years-old Female IN PACU - A/P PELVIS and LATERAL HIP right hip total joint arthroplast y COMPARISON: Hip radiographs 05/29/2020 TECHNIQUE: AP view of the pelvis with crosstable lateral view of the right hip FINDINGS: Right hip total joint arthroplasty. Satisfactory alignment without acute fracture. Lateral skin stapl es are present along with expected postoperative soft tissue swelling and deep tissue air. Numerous s oft tissue calcifications are again noted overlying the proximal medial thighs. Chronic deformity of the right pelvic ring. Moderate left hip posterior arthritis. IMPRESSION: Right hip total joint arthroplasty with expected postoperative changes. ACT 112: Negative or not required by law. The above report was generated using voice recognition software. It may contain grammatical, syntax o r spelling errors. Electronically signed by: Amaury Alfred M.D. 10/15/2020 9:40 AM
--- NOTE | 2020-10-15 09:52 | Anesthesiology Progress Note ---
Date of Service October 15, 2020 Anesthesia Post Procedure Vital Signs Vital Signs: Temp Pulse Pulse Resp BP BP Pulse Ox 10/15/20 09:40 66 16 112/69 98 10/15/20 09:30 70 17 120/57 L 98 10/15/20 09:20 68 13 117/64 97 10/15/20 09:10 68 15 119/67 97 10/15/20 09:02 36.8 C 73 20 94/45 L 93 10/15/20 05:39 36.7 C 71 20 172/71 H 95 Pain Intensity Right Groin: Pain Intensity: 6 Transfer of Care Handoff Completed per policy Notes Mental Status: alert / awake / arousable and participated in evaluation Patient Amnestic to Procedure: Yes Nausea / Vomiting: adequately controlled Pain: adequately controlled Airway Patency, RR, SpO2: stable & adequate BP & HR: stable & adequate Hydration State: stable & adequate Anesthetic Complications: no major complications apparent and Pt Satisfied with anesthetic care
--- NOTE | 2020-10-15 10:15 | Fluoroscopy Report ---
FL hip RT 1V CLINICAL HISTORY: RT ANTERIOR HIP COMPARISON STUDY: Right hip radiographs May 29, 2020. FLUOROSCOPY TIME: 21 seconds. FLUOROSCOPIC IMAGES: 2 FINDINGS: Fluoroscopy was provided during total right hip arthroplasty. Hardware is intact. No fractu res are identified by fluoroscopy. There is no acetabular screw. Radiodensities projecting over the p rome and proximal thighs are unchanged from earlier exam. IMPRESSION: Fluoroscopy provided during total right hip arthroplasty. ACT 112: Negative or not required by law. Electronically signed by: Tyler Johnson M.D. 10/15/2020 10:14 AM
[2020-10-15] MEDS ORDERED: HYDROmorphone INJ 0.5 MG/0.5 ML SYR IV PRN (10:26)
[2020-10-15] MEDS ORDERED: NALOXONE HCL 0.4 MG/1 ML VIAL/CARP IV PRN (10:26)
[2020-10-15] MEDS ORDERED: oxyCODONE HCL IR 5 MG TAB (IMMEDIATE RELEASE) PO PRN (10:26)
[2020-10-15] MEDS ORDERED: bisacodyL 10 MG SUPP PR PRN (10:26)
[2020-10-15] MEDS ORDERED: ALBUTEROL HFA 8 GM INHALER INH PRN (10:26)
[2020-10-15] MEDS ORDERED: MAGNESIUM HYDROXIDE SUSP 30 ML UDC PO PRN (10:26)
[2020-10-15] MEDS ORDERED: METOCLOPRAMIDE HCL INJ 5 MG/ML 2 ML VIAL IV PRN (10:26)
[2020-10-15] MEDS ORDERED: MECLIZINE HCL 25 MG TAB PO PRN (10:37)
[2020-10-15] MEDS: [UNRECOGNIZED DRUG - REMARK] SCH ×2 (11:04→11:28)
[2020-10-15] MEDS: KETOROLAC TROMETHAMINE 15 MG/ML VIAL IV SCH ×3 (11:30→23:27)
[2020-10-15] MEDS: SODIUM CHLORIDE 0.9% 1000ML 1,000 ML IV SCH ×2 (11:30→20:48)
[2020-10-15] MEDS: ACETAMINOPHEN 500 MG TAB PO SCH ×2 (15:31→21:34)
[2020-10-15] MEDS: ceFAZolin 2000MG 2,000 MG/15 ML SYR IV SCH ×2 (15:31→23:26)
[2020-10-15] MEDS ORDERED: PHENAZOPYRIDINE HCL 200 MG TAB PO SCH (21:00)
[2020-10-15] MEDS ORDERED: lisinopril 2.5 MG TAB PO SCH (21:00)
[2020-10-15] MEDS ORDERED: CYCLOBENZAPRINE HCL 10 MG TAB PO SCH (21:00)
[2020-10-15] MEDS ORDERED: DULoxetine HCL 30 MG CAP PO SCH (21:00)
[2020-10-15] MEDS ORDERED: SENNA 8.6 MG TAB PO SCH (21:00)
[2020-10-15] MEDS ORDERED: METOPROLOL SUCC 50MG EXT REL TAB PO SCH (21:00)
[2020-10-15] MEDS: ASPIRIN 81 MG ECTAB PO SCH (21:33)
[2020-10-15] MEDS: DOCUSATE SODIUM 100 MG CAP PO SCH (21:33)
[2020-10-15] MEDS ORDERED: Nursing to Pharmacy Communication SCH (22:30)
[2020-10-16] MEDS: ACETAMINOPHEN 500 MG TAB PO SCH ×2 (05:02→13:27)
[2020-10-16] MEDS: KETOROLAC TROMETHAMINE 15 MG/ML VIAL IV SCH ×2 (05:02→09:57)
[2020-10-16] MEDS ORDERED: LEVOTHYROXINE SODIUM 100 MCG TABLET PO SCH ×2 (06:30→21:00)
--- NOTE | 2020-10-16 06:31 | Orthopedic Progress Note ---
Date of Service October 16, 2020 Assessment & Plan (1) Status post right hip replacement: Overall she is doing very well. She is not any much pain in the right hip. She will be seen by physical therapy today for ambulation and range of motion exercises. She is on aspirin for DVT prophylaxis. She can be discharged home later today. She will follow-up with orthopedics in 2 weeks. Yolanda Mcghee was seen and examined at bedside this morning. Overall she doing very well. She is having much pain in the right hip. She has been up and ambulating to the bathroom. She has no complaints.. Review of Systems All systems reviewed & are unremarkable except as noted in HPI & below. Physical Exam On physical examination of the right hip, the dressing is clean and dry. She has active dorsiflexion plantarflexion of her right ankle. Sensation is intact throughout.. Results & Data Results & Data Laboratory Results . Diagnostic Findings Postoperative x-rays of the right hip show the prosthesis to be in anatomic alignment without any evidence of fracture, dislocation, or loosening. PG Care Time/CCT Total # of Minutes Spent Total Time Spent with Patient: Total time spent is greater than 50% in coordination of care (as documented) at patient's floor/unit and/or counseling patient: Coding Level of Care Code 19526 Post Operative Follow-Up Diagnoses Status post right hip replacement Z96.641
--- NOTE | 2020-10-16 06:33 | Discharge Summary ---
Date of Service October 16, 2020 Admission HPI (Per Admitting) Litzy is a pleasant 80-year-old female who is been having a year-long history of increasing right hip pain. She has been using a walker since March. She also then uses a wheelchair. X-rays show advanced osteoarthritis right is incomplete collapse of the right femoral head. After failing conservative treatment, she has elected proceed with a right total hip arthroplasty.. Admission Exam (Per Admitting) On physical examination of the right hip, she is in a wheelchair. She is a lot of pain with with internal and external rotation of her hip. All of her pain is located in her groin.. Principal Diagnosis Same as "Discharge Diagnosis" noted below under Discharge Instructions. Discharge Exam On physical examination of the right hip, the dressing is clean and dry. She has active dorsiflexion plantarflexion of her right ankle. Sensation is intact throughout.. Discharge Data Procedures Performed Operation Date: 10/15/20 07:00 Actual Procedures p Right Anterior Total Hip Arthroplasty(Right) - Tarik Contreras DO Ordered Studies 10/15/20 07:00 FL hip RT 1V Routine Hospital Course (1) Status post right hip replacement: On October 15, 2020 Litzy arrived at [facility] and underwent a right anterior hip replacement without complication. She had a spinal anesthetic. Postoperatively she was started on aspirin for DVT prophylaxis and transferred to the general orthopedic floors. Her hospital course was uneventfu l. On postop day #1 her vital signs were stable and her pain was well controlled. She was able to precipitate well with physical therapy doing ambulation and range of motion exercises. She was then discharged home. She will follow-up with orthopedics in 2 weeks. PG Care Time/CCT Total # of Minutes Spent Total Time Spent with Patient: Total time spent is greater than 50% in coordination of care (as documented) at patient's floor/unit and/or counseling patient: Discharge Plan Discharge Items Patient Disposition: Home - Home Health Services Reason For Visit: DJD Right Hip Discharge Diagnosis: Right hip replacement Activity: Resume your previous activity Non-emergency contact: Surgeon Call non-emergency contact if: your wound has increased redness and your wound has increased drainage Follow-up/Referrals: Mari Guillermo CRNP [Primary Care Provider] - Diet: Regular Addtl Attending Provider Instructions: Activity and Therapy Recommendations: * If you are using [facility] then therapy will be provided at your home until they feel you have accomplished all of your goals. * If you are using [facility] then Physical Therapy will be provided until they feel you are ready to start Outpatient Physical Therapy. * If you are not using home therapy then Outpatient Physical Therapy should start about 3-5 days from your day of surgery. Therapy will last about 6-10 weeks * You were shown a series of exercises in the hospital. Do these exercises three times each day including the exercises you were shown in physical therapy. * Get up and walk several times each day.~ For the first four weeks, try not to stand or walk for more than one hour at a time. If you do stand or walk for more than one hour, you will not hurt anything, but your leg will likely swell.~~ * As you feel comfortable, you may change from the walker or crutches to a cane and~then to independent walking. Medications: * Narcotic You will likely be sent home from the hospital with a prescription for the narcotic pain medication that worked best throughout your stay. * Aspirin Most patients will be required to take Aspirin 81mg twice a day for 6 weeks after surgery. This is obtained [id number] and a prescription is not necessary. * Other medications may be prescribed for specific circumstances. If you have any questions, please call the office at . * Resume previous home medications unless otherwise instructed TEDs/Elastic Stockings: The white elastic stockings help limit swelling and prevent blood clots from forming in your legs. The more you wear them, the more they work. Wear them for six weeks. Dressing Care: Leave the Silverlon dressing in place for 7 days. After 7 days you may remove the dressing. If the incision is not draining then you may leave the per open to air. If there is a little bit of drainage or if the per are getting stuck on your clothing then cover the incision with a dry dressing. The per will be removed at your 2 week follow-up appointment. Showering: You may shower with the Silverlon dressing in place. Do not let the shower spr ay hit the dressing directly. Pat the Silverlon dressing dry. If the dressing becomes wet underneath, then simply remove the dressing. Keep the incision dry until you are 7 days out from the day of surgery. After 7 days you may remove the Silverlon dressing and shower with the per exposed. Let soapy water run over the per and pat them dry. Do not scrub or soak the incision. Things To Watch For: * Drainage from the incision site that occurs more than one week after your surgery. * Increased redness at the incision site. * Fever above 102 degrees Fahrenheit. * Unusual chest pain or shortness of breath. * Call [facility] at with any of the above problems Follow-Up Visit: Follow-up with Dr. Contreras's PA (Tarik Jama) 2-3 weeks after your day of surgery. He will remove your per and answer any questions. If you have any additional questions or concerns, Dr Contreras is usually in the office at the same time and will be available An appointment was probably scheduled when you signed-up for surgery in the office. If you have any questions call Office Instructions: More detailed instructions as well as Frequently Asked Questions were provided in a folder by our office when you signed-up for surgery. Please review these instructions when you get home. If you have any further questions or concerns, please feel free to call the office at [phone] Pending Studies at Discharge: No Stand-Alone Forms: [facility], Smoking Cessation Medications and DC Order Prescriptions: New oxycodone 5 mg Tablet 5 mg PO Q4H PRN (Reason: pain) Qty: 30 RF: 0 Continued celecoxib [Celebrex] 200 mg Capsule 200 mg PO QPM RF: 0 tramadol 50 mg Tablet 50 mg PO Q4 PRN (Reason: Pain) RF: 0 levothyroxine [Synthroid] 100 mcg Tablet 100 mcg PO HS RF: 0 meclizine 25 mg Tablet 25 mg PO TID PRN (Reason: Dizziness) RF: 0 esomeprazole magnesium [Nexium] 40 mg Capsule,Delayed Release(Dr/Ec) 40 mg PO QAM RF: 0 calcium carbonate [Calcium 600] 600 mg calcium (1,500 mg) Tablet 600 mg PO HS RF: 0 cholecalciferol (vitamin D3) [Vitamin D3] 2,000 unit Capsule 2,000 unit PO QPM RF: 0 Special C [id number] mg Tablet 2 tab PO QPM RF: 0 acetaminophen [Tylenol Extra Strength] 500 mg Capsule 1,000 - 1,500 mg PO Q6H PRN (Reason: Pain) RF: 0 duloxetine [Cymbalta] 30 mg Capsule,Delayed Release(Dr/Ec) 30 mg PO QPM RF: 0 phenazopyridine [Azo] 95 mg Tablet 190 mg PO QPM RF: 0 metoprolol succinate 50 mg Tablet Extended Release 24 Hr 50 mg PO HS RF: 0 furosemide [Lasix] 20 mg Tablet 20 mg PO QAM RF: 0 lisinopril 2.5 mg Tablet 2.5 mg PO HS RF: 0 cyclobenzaprine 10 mg Tablet 10 mg PO HS RF: 0 potassium chloride 10 mEq Tablet Extended Release 10 meq PO QAM RF: 0 multivitamin with minerals [Hair,Skin and Nails] Tablet 2 tab PO QPM RF: 0 albuterol sulfate [Ventolin HFA] 90 mcg/actuation Hfa Aerosol Inhaler 2 puff INHALATION Q4 PRN (Reason: Shortness Of Breath) RF: 0 magnesium-vit L2-wnkhreqn-efpg Tablet 1 tab PO QPM RF: 0 Advair HFA 230-21 mcg/actuation Hfa Aerosol Inhaler 2 puff INHALATION BID RF: 0 psyllium husk [Metamucil] 0.52 gram Capsule 1.04 g PO QPM RF: 0 Changed aspirin [Aspirin Low Dose] 81 mg Tablet,Delayed Release (Dr/Ec) 81 mg PO BID 42 Days Qty: 0 RF: 0 Discontinued hydrocodone-acetaminophen 5-325 mg Tablet 1 tab PO Q6H PRN (Reason: Pain) RF: 0 Discharge Orders: Discharge Order (Routine); Ordered 10/16/20 Ordered By: Tarik Contreras Admission Data Admit Date/Time: 10/15/20 09:05 Attending Provider: Tarik Contreras Admit Provider: Tarik Contreras Primary Care Provider: Mari Guillermo
[2020-10-16] MEDS ORDERED: dexAMETHasone 4 MG TAB PO SCH (08:00)
[2020-10-16] MEDS ORDERED: FUROSEMIDE 20 MG TAB PO SCH (09:00)
[2020-10-16] MEDS ORDERED: FLUTICASONE/VILANTEROL 100/25MCG 14 PUFFS/INHALER INH SCH (09:00)
[2020-10-16] MEDS ORDERED: PANTOprazole 40 MG TAB PO SCH (09:00)
[2020-10-16] MEDS ORDERED: POTASSIUM CHLORIDE 10 MEQ TABCR PO SCH (09:00)
[2020-10-16] MEDS ORDERED: MULTIVITAMIN TAB PO SCH (09:00)
[2020-10-16] MEDS: DOCUSATE SODIUM 100 MG CAP PO SCH (09:50)
[2020-10-16] MEDS: ASPIRIN 81 MG ECTAB PO SCH (09:50)
== END 2020-10-16 13:52 | disposition home health service (06) ==
LOC: ASU 05:10 → 3E 05:10

== ENCOUNTER 2021-07-15 06:17 | Observation (INO) ==
--- NOTE | 2021-07-11 08:40 | History & Physical Report ---
Date of Service July 11, 2021 Assessment & Plan (1) Rotator cuff tear arthropathy of right shoulder: We will proceed with a right reverse shoulder arthroplasty. Postoperatively she will be placed in a sling and kept overnight in the hospital for postop medical management. She plans to use home health upon discharge. History of Present Illness Chief Complaint: Cuff arthropathy of the right shoulder. Primary Care Provider: MEAGAN Clarke Litzy is a pleasant 80-year-old female who I recently did an anterior hip replacement on. She did well with that. Unfortunately, she is really struggling with her right shoulder. X-rays and clinical examination have been diagnostic for advanced arthritis of the right shoulder with possible arthropathy. After failing conservative treatment, she elected to proceedwith a right reverse shoulder arthroplasty. . Allergies Allergy/AdvReac Type Severity Reaction Status Date / Time adhesive tape Allergy Unknown Blisters Verified 07/10/21 15:19 on skin Penicillins AdvReac Intermediate Syncope Verified 07/10/21 15:19 ("blacked out") Tcizuab-IAB-QvO Reductase AdvReac Intermediate Muscle Pain Verified 07/10/21 15:19 Inhibitor [Shquaby-Pcf-Ymf Reductase Inhibitor] UNKNOWN ANTIBIOTICS Allergy Unknown Remote Uncoded 07/10/21 15:19 unknown abx (during bowel sx) > scalp itchiness Home Medications Medication Instructions Recorded Confirmed Type calcium carbonate 600 mg calcium 600 mg PO HS 04/02/18 07/10/21 History (1,500 mg) tablet (Calcium) celecoxib 200 mg capsule (Celebrex) 200 mg PO QPM 04/02/18 07/10/21 History cholecalciferol (vitamin D3) 50 2,000 unit PO QPM 04/02/18 07/10/21 History mcg (2,000 unit) capsule (Vitamin D3) esomeprazole magnesium 40 mg 40 mg PO QAM 04/02/18 07/10/21 History capsule,delayed release (Nexium) levothyroxine 100 mcg tablet 100 mcg PO QAM 04/02/18 07/10/21 History (Synthroid) meclizine 25 mg tablet 25 mg PO TID PRN 04/02/18 07/10/21 History tramadol 50 mg tablet 50 mg PO Q4 PRN 04/02/18 07/10/21 History vit C 500 mg-rutin 10 mg-hesperidn 2 tab PO QPM 04/02/18 07/10/21 History cmp 10 mg-bioflav,cit 200 mg tablet (Special C) acetaminophen 500 mg capsule 1,000 - 1,500 mg PO Q6H PRN 06/12/20 07/10/21 History duloxetine 30 mg capsule,delayed 30 mg PO QPM 06/12/20 07/10/21 History release (Cymbalta) phenazopyridine 95 mg tablet 190 mg PO QAM 06/12/20 07/10/21 History albuterol sulfate 90 mcg/actuation 2 puff INHALATION Q4 PRN 09/20/20 07/10/21 History aerosol inhaler (Ventolin HFA) cyclobenzaprine 10 mg tablet 10 mg PO HS PRN 09/20/20 07/10/21 History fluticasone propionate 230 2 puff INHALATION BID 09/20/20 07/10/21 History mcg-salmeterol 21 mcg/actuation HFA inhaler (Advair HFA) lisinopril 2.5 mg tablet 2.5 mg PO HS 09/20/20 07/10/21 History magnesium-vit P0-iajycmiy-vddv 1 tab PO QPM 09/20/20 07/10/21 History tablet metoprolol succinate 50 mg 25 mg PO HS 09/20/20 07/10/21 History tablet,extended release 24 hr psyllium husk 0.52 gram capsule 1.04 g PO QPM 09/20/20 07/10/21 History (Metamucil) oxycodone 5 mg tablet 5 mg PO Q6H PRN #30 tab 11/21/20 07/10/21 Rx cephalexin 500 mg capsule 500 mg PO TID PRN 03/28/21 07/10/21 History rizatriptan See Rx Instructions .ROUTE .COMPLEX 04/04/21 07/10/21 History Past Med/Surg History Medical History Acquired hypothyroidism Hx goiter > given iodine tx, now on levothyroxine Bulging discs Cervical- no ROM limitations per pt Chronic obstructive pulmonary disease Breathing stable CVA (cerebral vascular accident) "Mild" stroke (2018), no deficits Depression Hx Flashing lights Occasional (2-3x/week)- does get headache afterwards- affects vision- takes Rizatriptan - relieves GERD (gastroesophageal reflux disease) Controlled Hiatal hernia History of COVID-19 Dx 12/2019 ( [facility]) > symptoms at time of dyspnea, body aches, fatigue, weakness, low grade fever, admitted to [facility] x 5 days > symptoms resolved except residual cough (controlled with inhaler PRN) History of recent fall happened in March 2021--injury to rt shoulder Hyperlipidemia No meds Hypertension Migraine Poor historian Scoliosis Severe Surgical History History of bowel resection x2- 2/2 diverticulitis (+ cholecystectomy) History of colonoscopy Multiple History of esophagogastroduodenoscopy (EGD) History of lung surgery Fatty tumors excision History of total right hip arthroplasty Right Anterior GERTRUDE 10/15/20= Done under SAB at L3-4 with 1 attempt. S/P breast biopsy, bilateral Benign S/P foot surgery, right Bunionectomy Family History Mother Family history of diabetes mellitus Social History Smoking Status: Former smoker Smoking End Date: quit 25yrs ago; Second Hand Exposure: No; Do You Dip or Chew Tobacco: No; Tobacco Cessation Education Requested by Patient: No Hx Alcohol Use: No Hx Substance Use: No Preferred Language: Portuguese Communication Ability: Effective Core Loader Required: No Beliefs That Will Affect Care: None marital status: Current Living Situation: Spouse and Family Current Living Situation Comment: Lives with and granddaughter Other Information That Helps Us Care for You: No Feels Safe at Home: Yes Safety Concerns: Feels Safe At This Time Assistive Devices: Cane, Denture - Upper and Glasses Review of Systems All systems reviewed & are unremarkable except as noted in HPI & below. Physical Exam On physical examination of the right shoulder, she has about 90 degrees of forward elevation 80 degrees of abduction. She has 4 out of 5 motor strength with full can testing and external rotation. Pain of the glenohumeral joint line. Constitutional WD/WN, vitals as above Eyes PERRL, conjunctivae normal, anicteric sclerae ENMT external ear and nose normal, oropharynx normal Neck trachea midline, no thyromegaly Respiratory normal respiratory effort Cardiovascular RRR, no murmur, no edema Gastrointestinal (Abdomen) normal bowel sounds, soft, nontender, no hepatosplenomegaly Psychiatric A+Ox3, euthymic affect Results & Data Results & Data Laboratory Results . Diagnostic Findings X-rays of the right shoulder do show signs of cuff arthropathy with superior migration of the humeral head on the glenoid. There is superior wear of the glenoid. There is advanced degenerative joint disease. PG Care Time/CCT Total # of Minutes Spent Total Time Spent with Patient: Total time spent is greater than 50% in coordination of care (as documented) at patient's floor/unit and/or counseling patient: Coding Level of Care Code None Diagnoses Rotator cuff tear arthropathy of right shoulder M75.101; M12.811
--- NOTE | 2021-07-11 11:12 | Anesthesiology Consultation ---
Date of Service July 11, 2021 Assessment & Plan Chart Review Chart Review: Acceptable Risk for Surgery and Patient NOT seen in Pre Admission Testing Consults Requested none History Surgery Operation Date: 07/15/21 12:30 Proposed Procedures p Right Reverse Total Shoulder Arthroplasty - Tarik Contreras DO Height/Weight Height: 4 ft 7 in Weight: 55.338 kg Allergies Allergy/AdvReac Type Severity Reaction Status Date / Time adhesive tape Allergy Unknown Blisters Verified 07/10/21 15:19 on skin Penicillins AdvReac Intermediate Syncope Verified 07/10/21 15:19 ("blacked out") Lsmzukb-ITR-EbU Reductase AdvReac Intermediate Muscle Pain Verified 07/10/21 15:19 Inhibitor [Wfplhlu-Zqa-Aif Reductase Inhibitor] UNKNOWN ANTIBIOTICS Allergy Unknown Remote Uncoded 07/10/21 15:19 unknown abx (during bowel sx) > scalp itchiness Medications Home Medications Medication Instructions Recorded Confirmed Last Taken calcium carbonate 600 mg calcium 600 mg PO HS 04/02/18 07/10/21 10/14/20 22:00 (1,500 mg) tablet (Calcium) celecoxib 200 mg capsule (Celebrex) 200 mg PO QPM 04/02/18 07/10/21 10/01/20 cholecalciferol (vitamin D3) 50 2,000 unit PO QPM 04/02/18 07/10/21 10/14/20 22:00 mcg (2,000 unit) capsule (Vitamin D3) esomeprazole magnesium 40 mg 40 mg PO QAM 04/02/18 07/10/21 10/15/20 02:30 capsule,delayed release (Nexium) levothyroxine 100 mcg tablet 100 mcg PO QAM 04/02/18 07/10/21 10/14/20 22:00 (Synthroid) meclizine 25 mg tablet 25 mg PO TID PRN 04/02/18 07/10/21 04/01/18 tramadol 50 mg tablet 50 mg PO Q4 PRN 04/02/18 07/10/21 10/14/20 08:00 vit C 500 mg-rutin 10 mg-hesperidn 2 tab PO QPM 04/02/18 07/10/21 10/13/20 22:00 cmp 10 mg-bioflav,cit 200 mg tablet (Special C) acetaminophen 500 mg capsule 1,000 - 1,500 mg PO Q6H PRN 06/12/20 07/10/21 Unknown duloxetine 30 mg capsule,delayed 30 mg PO QPM 06/12/20 07/10/21 10/14/20 22:00 release (Cymbalta) phenazopyridine 95 mg tablet 190 mg PO QAM 06/12/20 07/10/21 10/14/20 22:00 albuterol sulfate 90 mcg/actuation 2 puff INHALATION Q4 PRN 09/20/20 07/10/21 10/15/20 04:00 aerosol inhaler (Ventolin HFA) cyclobenzaprine 10 mg tablet 10 mg PO HS PRN 09/20/20 07/10/21 10/14/20 22:00 fluticasone propionate 230 2 puff INHALATION BID 09/20/20 07/10/21 10/15/20 04:00 mcg-salmeterol 21 mcg/actuation HFA inhaler (Advair HFA) lisinopril 2.5 mg tablet 2.5 mg PO HS 09/20/20 07/10/21 10/14/20 22:00 magnesium-vit C6-enwwdmkf-konn 1 tab PO QPM 09/20/20 07/10/21 Unknown tablet metoprolol succinate 50 mg 25 mg PO HS 09/20/20 07/10/21 10/14/20 22:00 tablet,extended release 24 hr psyllium husk 0.52 gram capsule 1.04 g PO QPM 09/20/20 07/10/21 10/14/20 22:00 (Metamucil) oxycodone 5 mg tablet 5 mg PO Q6H PRN #30 tab 11/21/20 07/10/21 Unknown cephalexin 500 mg capsule 500 mg PO TID PRN 03/28/21 07/10/21 Unknown rizatriptan See Rx Instructions .ROUTE .COMPLEX 04/04/21 07/10/21 Unknown Past Medical History Medical History Acquired hypothyroidism Hx goiter > given iodine tx, now on levothyroxine Bulging discs Cervical- no ROM limitations per pt Chronic obstructive pulmonary disease Breathing stable CVA (cerebral vascular accident) "Mild" stroke (2018), no deficits Depression Hx Flashing lights Occasional (2-3x/week)- does get headache afterwards- affects vision- takes Rizatriptan - relieves GERD (gastroesophageal reflux disease) Controlled Hiatal hernia History of COVID-19 Dx 12/2019 ([facility]) > symptoms at time of dyspnea, body aches, fatigue, weakness, low grade fever, admitted to [facility] x 5 days > symptoms resolved except residual cough (controlled with inhaler PRN) History of recent fall happened in March 2021--injury to rt shoulder Hyperlipidemia No meds Hypertension Migraine Poor historian Scoliosis Severe Exercise / Class Metabolic Activity III < 4 Walking/Shop/Light housework Past Family History Family History Mother Family history of diabetes mellitus Past Surgical History Surgical History History of bowel resection x2- 2/2 diverticulitis (+ cholecystectomy) History of colonoscopy Multiple History of esophagogastroduodenoscopy (EGD) History of lung surgery Fatty tumors excision History of total right hip arthroplasty Right Anterior GERTRUDE 10/15/20= Done under [facility] at L3-4 with 1 attempt. S/P breast biopsy, bilateral Benign S/P foot surgery, right Bunionectomy Past Anesthesia History No Hx of Anesthesia Complications and No Family Hx of Anesthesia Complications History of PONV No Hx of PONV and No Hx of Motion Sickness Social History Smoking Status: Former smoker Do You Dip or Chew Tobacco: No Smoking End Date: quit 25yrs ago Hx Alcohol Use: No Hx Substance Use: No substance use type: does not use Testing Electrocardiogram Date: 04/03/21 Findings: + NSR @ (at 74;? infer. and anter. RI;age ?) and + NSST changes Chest X-Ray Date: 04/03/21 Findings: + NAD and + other (emphysema;right aortic arch;chronic interstitial changes) Echocardiogram Date: 07/03/21 EF: >70% LV Function: normal RWMA: + none Other Findings: + LVH (mild) Valvular Disease: + no significant valvular disease TR-mild;small LV cavity;;RV-dilated
[~2021-07-15 06:17] MED LIST: ACETAMINOPHEN 500 MG TAB PO SCH; FAMOTIDINE 20 MG TAB PO SCH; GABAPENTIN 300 MG CAP PO SCH; Ketorolac (*for OR use only*) 30 MG, dexAMETHasone 4 MG, KETAMINE HCL (**OR use only) 1... INFIL SCH; LACTATED RINGER'S 1,000 ML IV SCH; LR 60ML/HR IV SCH; TRANEXAMIC ACID 1,000 MG **IV Intra-op IV SCH; TRANEXAMIC ACID 1,000 MG **IV Pre-op IV SCH; ceFAZolin 1000MG 1,000 MG/7.5 ML SYR IV SCH; dexAMETHasone 4 MG TAB PO SCH
[2021-07-15] MEDS ORDERED: BUPIVACAINE 0.5 % 5 MG/1 ML PF 10ML VIAL ONE (06:22)
[2021-07-15 07:16] LABS: Basophils # (auto) 0.01 K/uL (0-0.2); Basophils % (auto) 0.1 %; Eosinophils # (auto) 0.05 K/uL (0-0.5); Eosinophils % (auto) 0.6 %; Hematocrit (blood only) 41.1 % (37-47); Hemoglobin 13.3 g/dL (12.0-16.0); Immature Granulocytes # (auto) 0.01 K/uL (0.00-0.02); Immature Granulocytes % (auto) 0.1 %; Lymphocytes # (auto) 1.73 K/uL (1.2-3.4); Lymphocytes % (auto) 20.1 %; Mean Corpuscular Hemoglobin 30.1 pg (25-34); Mean Platelet Volume 9.2 fL (7.4-10.4); Monocytes % (auto) 5.8 %; Neutrophils % (auto) 73.3 %; Platelet Count 450 K/uL (130-400); RDW Coefficient of Variation 13.7 % (11.5-14.5); RDW Standard Deviation 46.6 fL (36.4-46.3); Red Blood Count 4.42 M/uL (4.2-5.4)
[2021-07-15 07:17] LABS: Mean Corpuscular Hgb Conc 32.4 g/dL (32-36)
[2021-07-15 07:45] LABS: BUN Creatinine Ratio 23.4 (10-20); Calcium 9.5 mg/dl (8.5-10.1); Creatinine Clr Calc Pharmacy 39.2 ml/min; Est GFR (African American) 84.5 ml/min; Est GFR (Non-African American) 72.9 ml/min; Potassium 3.9 mmol/L (3.5-5.1)
[2021-07-15] MEDS ORDERED: ePHEDrine sulfate 50 MG/ML AMP IV PRN (08:00)
[2021-07-15] MEDS ORDERED: fentaNYL citrate 100 MCG/2 ML VIAL IV PRN (08:00)
[2021-07-15] MEDS ORDERED: ONDANSETRON INJ 2 MG/ML 2 ML VIAL IV PRN ×2 (08:00→12:26)
[2021-07-15] MEDS ORDERED: ATROPINE SULFATE 0.1 MG/ML 10ML SYR IV PRN (08:00)
[2021-07-15 08:20] LABS: Partial Thromboplastin Ratio 1.1; Partial Thromboplastin Time 29.6 Seconds (21.0-31.0); Prothrombin Time 10.9 Seconds (9.0-12.0)
[2021-07-15] MEDS ORDERED: fentaNYL citrate 100 MCG/2 ML VIAL ONE (08:23)
--- NOTE | 2021-07-15 08:26 | History & Physical Bridge Note ---
Date of Service July 15, 2021 History & Physical Bridge Note I have examined the patient, reviewed the History & Physical and in the interval since the performance of the History & Physical I have noted the following changes of clinical significance: no changes noted
[2021-07-15] MEDS ORDERED: Nursing to Pharmacy Communication SCH (08:45)
[2021-07-15] MEDS ORDERED: ORTHO JOINT ANESTHETIC ONE (09:02)
[2021-07-15] MEDS ORDERED: ePHEDrine sulfate 50 MG/ML SYR ONE (10:47)
[2021-07-15] MEDS ORDERED: PHENYLEPHRINE HCL 10 MG/ML VIAL ONE (10:47)
[2021-07-15] MEDS ORDERED: ONDANSETRON INJ 2 MG/ML 2 ML VIAL ONE (10:47)
[2021-07-15] MEDS ORDERED: PROPOFOL IV EMULSION 10 MG/ML 20 ML VIAL IV ONE (10:47)
--- NOTE | 2021-07-15 11:04 | Operative Report ---
PG Post Operative Report Pre & Post Diagnosis Operation Date: 07/15/21 08:50 Pre-Op Diagnosis: Cuff tear arthropathy of the right shoulder Post-Op Diagnosis: Cuff tear arthropathy of the right shoulder I identified the patient and participated in the time-out.: Yes Procedure Operation Date: 07/15/21 08:50 Actual Procedures p Right Reverse Total Shoulder Arthroplasty(Right) - Tarik Contreras DO Surgeon Tarik Contreras DO Armoring Machine Operator Tarik Jama PAC Estimated Blood Loss 150 Findings Consistent with Post-Op Diagnosis Specimens Right humeral head Complications none Disposition Disposition: Recovery Room Indications Litzy is a pleasant 81-year-old female who has been dealing with chronic increasing right shoulder pain. X-rays and clinical examination have shown signs of cuff arthropathy to right shoulder. She recently reinjured the right shoulder and has an area of ecchymosis anteriorly. After failing conservative treatment, she elected proceed with a right reverse shoulder arthroplasty. Description of Procedure Implants used: I used a [employer] Comprehensive reverse total shoulder arthroplasty system with a size 11 press fit micro humeral stem, a +6 offset humeral tray and a +3 retentive humeral bearing, a 25 mm medium augment baseplate with a 6.5 mm central screw and superior and inferior locking screws, and a size 36 mm eccentric glenosphere. Litzy arrived at [facility] for the above procedure. She was seen in the preoperative holding area and the operative extremity was identified and signed. She was given a preoperative antibiotic, TXA, and an interscalene nerve block. She was taken back to the operating room, laid on table in supine position, and put under general anesthesia. She was then put into the beachchair position. The shoulder was then prepped and draped in sterile fashion. A timeout was done and the patient and the operative extremity was properly identified. A deltopectoral approach was used. Dissection was taken down through the fascia and the deltoid was retracted laterally and the conjoined tendon was retracted medially. The anterior shoulder was exposed. The biceps tendon was chronically torn. The subscapularis was then directly released off the lesser tuberosity with a peel technique. The inferior capsule was released and the humeral head was dislocated. A canal finding reamer was sent down the center of the humeral canal. Sequential reaming up to a size 11 reamer was done. Off that reamer, a proximal humeral resection guide was placed. The proximal humerus was resected at 135 of inclination and 25 of retroversion. Osteophytes were then removed and the glenoid was exposed. Time was spent doing a complete capsular and labral release. The glenoid guide was then placed in the inferior aspect of the glenoid. A 3.2 mm Steinmann pin was then placed into the glenoid vault at 10 of inclination. The glenoid baseplate was then reamed. The final size 25 mm medium augment baseplate was then impacted in the place. A 6.5 mm central screw was then placed followed by superior and inferior locking screws. A 36 mm eccentric glenosphere was then impacted into place. Surrounding soft tissues were then injected with 100 cc an orthopedic pain control cocktail. The proximal humerus was then exposed. Sequential broaching of the humerus up to a size 11 broach was done. Off that broach a +6 offset +3 retentive humeral tray was trialed. The shoulder was then reduced, brought through a full range of motion, and felt to be stable. The shoulder was then dislocated and the broach was removed. The final size 11 micro press-fit humeral stem was then impacted into place. A +3 retentive humeral bearing was then snapped onto a +6 offset humeral tray. The humeral tray was then impacted onto the humeral stem. The shoulder was once again reduced, brought through a full range of motion, and felt to be stable. The subscapularis was then tenodesed back to the lesser tuberosity with transosseous FiberWire sutures and side to side sutures with the arm in 45 of external rotation. A dilute betadyne lavage was then done for 3 minutes. The joint was then irrigated with normal saline solution. Hemostasis was obtained. The interval was closed with 2-0 Vicryl suture. The skin was then closed with 2-0 Vicryl and per. A Silverlon dressing was placed and the arm was rested in a regular arm sling. She was then extubated and transferred to a hospital bed. She taken to the postanesthesia care unit in stable condition. She tolerated the procedure well. Tarik Jama PA-C, was present for the entire procedure. He was critical for patient positioning, prepping, draping, retraction exposure, wound closure and application of sterile dressing. I attest to the content of the Intraoperative Record and any orders documented therein. Any exceptions are noted below.
[2021-07-15] MEDS: SODIUM CHLORIDE 0.9% 1000ML 1,000 ML IV SCH ×2 (12:15→20:58)
[2021-07-15] MEDS ORDERED: MECLIZINE HCL 25 MG TAB PO PRN (12:26)
[2021-07-15] MEDS ORDERED: MAGNESIUM HYDROXIDE SUSP 30 ML UDC PO PRN (12:26)
[2021-07-15] MEDS ORDERED: NALOXONE HCL 0.4 MG/1 ML VIAL/CARP IV PRN (12:26)
[2021-07-15] MEDS ORDERED: bisacodyL 10 MG SUPP PR PRN (12:26)
[2021-07-15] MEDS ORDERED: cephALEXin 500 MG CAP PO PRN (12:26)
[2021-07-15] MEDS ORDERED: ALBUTEROL HFA 8 GM INHALER INH PRN (12:26)
[2021-07-15] MEDS ORDERED: METOCLOPRAMIDE HCL INJ 5 MG/ML 2 ML VIAL IV PRN (12:26)
[2021-07-15] MEDS ORDERED: RIZATRIPTAN BENZOATE 10 MG TAB PO PRN (12:57)
[2021-07-15] MEDS: KETOROLAC TROMETHAMINE 15 MG/ML VIAL IV SCH ×2 (13:58→20:55)
[2021-07-15] MEDS: ACETAMINOPHEN 500 MG TAB PO SCH ×2 (13:58→20:56)
--- NOTE | 2021-07-15 14:17 | Anesthesiology Progress Note ---
Date of Service July 15, 2021 Anesthesia Post Procedure Vital Signs Vital Signs: Temp Pulse Pulse Resp BP BP Pulse Ox 07/15/21 13:15 97.3 F L 85 16 119/74 95 07/15/21 12:45 97.7 F 76 16 103/63 93 07/15/21 12:15 98.2 F 82 16 97/62 L 94 07/15/21 11:50 84 14 117/72 93 07/15/21 11:40 97.2 F L 90 17 119/82 93 07/15/21 11:30 85 16 140/81 93 07/15/21 11:20 88 16 145/83 H 93 07/15/21 11:11 97.3 F L 85 16 129/64 94 07/15/21 07:28 98.1 F 76 18 149/82 H 96 Pain Intensity Right Shoulder: Pain Intensity: 1 Transfer of Care Handoff Completed per policy Notes Mental Status: alert / awake / arousable and participated in evaluation Patient Amnestic to Procedure: Yes Nausea / Vomiting: adequately controlled Pain: adequately controlled Airway Patency, RR, SpO2: stable & adequate BP & HR: stable & adequate Hydration State: stable & adequate Anesthetic Complications: no major complications apparent and Pt Satisfied with anesthetic care
--- NOTE | 2021-07-15 14:36 | XRay Report ---
RIGHT SHOULDER 2 VIEWS CLINICAL HISTORY: Postoperative examination. FINDINGS: 2 portable views of the right shoulder are obtained. The skeletal structures are osteopenic . A right shoulder arthroplasty is in near-anatomic alignment. No acute fracture is seen. Mild produc tive degenerative change is noted at the acromioclavicular joint. Skin clips, soft tissue gas, and ed toney overlying the right shoulder are expected postoperative changes. The right lung appears clear not ing basilar atelectasis. IMPRESSION: Expected postoperative findings status post right shoulder arthroplasty. No acute fractur e is seen. Electronically signed by: Thien Alaniz M.D. 07/15/2021 2:35 PM
[2021-07-15] MEDS: ceFAZolin 2000MG 2,000 MG/15 ML SYR IV SCH (17:52)
[2021-07-15] MEDS: DOCUSATE SODIUM 100 MG CAP PO SCH (20:55)
[2021-07-15] MEDS: DULoxetine HCL 30 MG CAP PO SCH (20:55)
[2021-07-15] MEDS: SENNA 8.6 MG TAB PO SCH (20:56)
[2021-07-15] MEDS: lisinopril 2.5 MG TAB PO SCH (21:00)
[2021-07-15] MEDS: METOPROLOL SUCC 25MG EXT REL TAB PO SCH (21:00)
[2021-07-15] MEDS ORDERED: [UNRECOGNIZED DRUG - OTHER] PO SCH (21:00)
[2021-07-15] MEDS ORDERED: [UNRECOGNIZED DRUG - OTHER] PO SCH (21:00)
[2021-07-16] MEDS: oxyCODONE HCL IR 5 MG TAB (IMMEDIATE RELEASE) PO PRN ×3 (00:20→22:30)
[2021-07-16] MEDS: KETOROLAC TROMETHAMINE 15 MG/ML VIAL IV SCH ×4 (02:06→19:58)
[2021-07-16] MEDS: ceFAZolin 2000MG 2,000 MG/15 ML SYR IV SCH (02:06)
[2021-07-16] MEDS: PANTOprazole 40 MG TAB PO SCH (02:10)
[2021-07-16] MEDS: ACETAMINOPHEN 500 MG TAB PO SCH ×3 (05:22→22:30)
[2021-07-16] MEDS: LEVOTHYROXINE SODIUM 100 MCG TABLET PO SCH (05:22)
--- NOTE | 2021-07-16 06:34 | Orthopedic Progress Note ---
Date of Service July 16, 2021 Assessment & Plan (1) Status post reverse total replacement of right shoulder: Overall she is doing very well. She is not having much pain in the right shoulder. She will be seen by physical therapy today for ambulation and range of motion exercises. She can then be discharged home. She will follow-up with orthopedics in 2 weeks. Yolanda Mcghee was seen and examined at bedside this morning. Overall she is doing very well. She is not having any pain in the right shoulder. She was able to get some sleep last night. She has no complaints. Review of Systems All systems reviewed & are unremarkable except as noted in HPI & below. Physical Exam On physical examination of the right shoulder, the dressing is clean and dry. She is wearing her sling as instructed. She has active dorsiflexion of her right wrist.. Results & Data Results & Data Laboratory Results . Diagnostic Findings Postoperative x-rays of the right shoulder show the prosthesis to be in anatomic alignment without any evidence of fracture, screws, or loosening. PG Care Time/CCT Total # of Minutes Spent Total Time Spent with Patient: Total time spent is greater than 50% in coordination of care (as documented) at patient's floor/unit and/or counseling patient: Coding Level of Care Code 70246 Post Operative Follow-Up Diagnoses Status post reverse total replacement of right shoulder Z96.611
--- NOTE | 2021-07-16 06:35 | Discharge Summary ---
Date of Service July 16, 2021 Admission HPI (Per Admitting) Litzy is a pleasant 80-year-old female who I recently did an anterior hip replacement on. She did well with that. Unfortunately, she is really struggling with her right shoulder. X-rays and clinical examination have been diagnostic for advanced arthritis of the right shoulder with possible arthropathy. After failing conservative treatment, she elected to proceedwith a right reverse shoulder arthroplasty. . Admission Exam (Per Admitting) On physical examination of the right shoulder, she has about 90 degrees of forward elevation 80 degrees of abduction. She has 4 out of 5 motor strength with full can testing and external rotation. Pain of the glenohumeral joint line. Principal Diagnosis Same as "Discharge Diagnosis" noted below under Discharge Instructions. Discharge Exam On physical examination of the right shoulder, the dressing is clean and dry. She is wearing her sling as instructed. She has active dorsiflexion of her right wrist.. Discharge Data Procedures Performed Operation Date: 07/15/21 08:50 Actual Procedures p Right Reverse Total Shoulder Arthroplasty(Right) - Tarik Contreras DO Ordered Studies 07/15/21 08:57 US - OR guided needle placemen Routine Hospital Course (1) Status post reverse total replacement of right shoulder: On July 15, 2021 Litzy arrived at [facility] and underwent a right reverse shoulder arthroplasty without complication. She had a general anesthetic and a right interscalene nerve block. Postoperatively she was placed in a sling and transferred to the general orthopedic floors. Her hospital course was uneventful. On postop day #1, her vital signs were stable and her pain was well controlled. She was able to participate well with physical therapy doing ambulation and range of motion exercises. She was then discharged home. She will follow-up with orthopedics in 2 weeks. PG Care Time/CCT Total # of Minutes Spent Total Time Spent with Patient: Total time spent is greater than 50% in coordination of care (as documented) at patient's floor/unit and/or counseling patient: Discharge Plan Discharge Items Patient Disposition: Home - Home Health Services Reason For Visit: Degenerative Joint Disease Right Shoulder Discharge Diagnosis: Right reverse shoulder replacement Activity: As commented below Non-emergency contact: Surgeon Call non-emergency contact if: your wound has increased redness and your wound has increased drainage Follow-up/Referrals: Eagle,Mari A., SENIOR ELECT[employer]ICAL [employer]S ENGINEER [Primary Care Provider] - Diet: Regular Addtl Attending Provider Instructions: Activity and Therapy Recommendations: * If you are using [facility] then therapy will be provided at your home until they feel you have accomplished all of your goals. * If you are using [facility] then Physical Therapy will be provided until they feel you are ready to start Outpatient Physical Therapy. * If you are not using home therapy then Outpatient Physical Therapy should start about 3-5 days from your day of surgery. Therapy will last about 8-12 weeks * Wear your sling for 3 weeks, unless otherwise instructed. You may remove your sling to shower and to dress, but otherwise, you should be in your sling at all times, including while sleeping * The shoulder replacement is very stable and you can use your hand while in the sling * You were shown a series of exercises in the hospital. Do these exercises daily including the exercises you were shown in physical therapy. Medications: * Narcotic You will likely be sent home from the hospital with a prescription for the narcotic pain medication that worked best throughout your stay. * Other medications may be prescribed for specific circumstances. If you have any questions, please call the office at . * Resume previous home medications unless otherwise instructed Dressing Care: Leave the Silverlon dressing in place for 7 days. After 7 days you may remove the dressing. If the incision is not draining then you may leave the per open to air. If there is a little bit of drainage or if the per are getting stuck on your clothing then cover the incision with a dry dressing. The per will be removed at your 2 week follow-up appointment. Showering: You may shower with the Silverlon dressing in place. Do not let the shower spray hit the dressing directly. Pat the Silverlon dressing dry. If the dressing becomes wet underneath, then simply remove the dressing. Keep the incision dry until you are 7 days out from the day of surgery. After 7 days you may remove the Silverlon dressing and shower with the per e xposed. Let soapy water run over the per and pat them dry. Do not scrub or soak the incision. Things To Watch For: * Drainage from the incision site that occurs more than one week after your surgery. * Increased redness at the incision site. * Fever above 102 degrees Fahrenheit. * Unusual chest pain or shortness of breath. * Call [facility] at with any of the above problems Follow-Up Visit: Follow-up with Dr. Contreras's PA (Tarik Jama) 2-3 weeks after your day of surgery. He will remove your per and answer any questions. If you have any additional questions or concerns, Dr Contreras is usually in the office at the same time and will be available An appointment was probably scheduled when you signed-up for surgery in the office. If you have any questions call More detailed instructions as well as Frequently Asked Questions were provided in a folder by our office when you signed-up for surgery. Please review these instructions when you get home. If you have any further questions or concerns, please feel free to call the office at [phone] Pending Studies at Discharge: No Stand-Alone Forms: [facility] Medications and DC Order Prescriptions: Continued celecoxib [Celebrex] 200 mg Capsule 200 mg PO QPM RF: 0 tramadol 50 mg Tablet 50 mg PO Q4 PRN (Reason: Pain) RF: 0 levothyroxine [Synthroid] 100 mcg Tablet 100 mcg PO QAM RF: 0 meclizine 25 mg Tablet 25 mg PO TID PRN (Reason: Dizziness) RF: 0 esomeprazole magnesium [Nexium] 40 mg Capsule,Delayed Release(Dr/Ec) 40 mg PO QAM RF: 0 calcium carbonate [Calcium 600] 600 mg calcium (1,500 mg) Tablet 600 mg PO HS RF: 0 cholecalciferol (vitamin D3) [Vitamin D3] 2,000 unit Capsule 2,000 unit PO QPM RF: 0 Special C [id number] mg Tablet 2 tab PO QPM RF: 0 cephalexin 500 mg capsule 500 mg PO TID PRN (Reason: ud) RF: 0 rizatriptan See Rx Instructions .ROUTE .COMPLEX RF: 0 oxycodone 5 mg tablet 5 mg PO Q6H PRN (Reason: pain) Qty: 30 RF: 0 acetaminophen 500 mg Capsule 1,000 - 1,500 mg PO Q6H PRN (Reason: Pain) RF: 0 duloxetine [Cymbalta] 30 mg Capsule,Delayed Release(Dr/Ec) 30 mg PO QPM RF: 0 phenazopyridine 95 mg Tablet 190 mg PO QAM RF: 0 metoprolol succinate 50 mg Tablet Extended Release 24 Hr 25 mg PO HS RF: 0 lisinopril 2.5 mg Tablet 2.5 mg PO HS RF: 0 cyclobenzaprine 10 mg Tablet 10 mg PO HS PRN (Reason: Muscle Spasm) RF: 0 albuterol sulfate [Ventolin HFA] 90 mcg/actuation Hfa Aerosol Inhaler 2 puff INHALATION Q4 PRN (Reason: Shortness Of Breath) RF: 0 magnesium-vit [id number] Tablet 1 tab PO QPM RF: 0 Advair HFA 230-21 mcg/actuation Hfa Aerosol Inhaler 2 puff INHALATION BID RF: 0 psyllium husk [Metamucil] 0.52 gram Capsule 1.04 g PO QPM RF: 0 Discharge Orders: Discharge Order (Routine); Ordered 07/16/21 Ordered By: Tarik Contreras Admission Data Admit Date/Time: 07/15/21 11:11 Attending Provider: Tarik Contreras Admit Provider: Tarik Contreras Primary Care Provider: Mari Guillermo
[2021-07-16] MEDS ORDERED: dexAMETHasone 4 MG TAB PO SCH (08:00)
[2021-07-16] MEDS: FLUTICASONE/VILANTEROL 200/25MCG 14 PUFFS/INHALER INH SCH (08:31)
[2021-07-16] MEDS: DOCUSATE SODIUM 100 MG CAP PO SCH ×2 (08:31→20:04)
[2021-07-16] MEDS: MULTIVITAMIN TAB PO SCH (08:31)
[2021-07-16] MEDS ORDERED: NON-FORMULARY MEDICATION (Phenazopyridine 95 mg Tablet) PO SCH (09:00)
[2021-07-16] MEDS: HYDROmorphone INJ 0.5 MG/0.5 ML SYR IV PRN (19:58)
[2021-07-16] MEDS: SENNA 8.6 MG TAB PO SCH (20:04)
[2021-07-16] MEDS: DULoxetine HCL 30 MG CAP PO SCH (20:05)
[2021-07-16] MEDS: lisinopril 2.5 MG TAB PO SCH (20:05)
[2021-07-16] MEDS: METOPROLOL SUCC 25MG EXT REL TAB PO SCH (20:05)
[2021-07-17] MEDS: KETOROLAC TROMETHAMINE 15 MG/ML VIAL IV SCH ×2 (02:06→08:38)
[2021-07-17] MEDS: LEVOTHYROXINE SODIUM 100 MCG TABLET PO SCH (06:10)
[2021-07-17] MEDS: ACETAMINOPHEN 500 MG TAB PO SCH ×3 (06:10→22:05)
--- NOTE | 2021-07-17 06:45 | Orthopedic Progress Note ---
Date of Service July 17, 2021 Assessment & Plan (1) Status post reverse total replacement of right shoulder: She has been doing fairly well with regards to her right shoulder. Yesterday, when she got up with therapy, her she desatted to 77%. This may be secondary to the interscalene block and possible effect of the phrenic nerve. The block seems to have worn off and she is able to take a deep breath. We will wean her off oxygen throughout the day today. We will see how she does after t herapy today. If her oxygen saturations remain above 90% during and after physical therapy without supplemental oxygen then she can be discharged to home. If she continues to struggle with desaturations then we will hold discharge and consult the hospitalist. Yolanda Mcghee was seen and examined at bedside this morning. Overall she says she is feeling much better. She was on 2 L of oxygen overnight. Her oxygen saturations have been stable in the 2 L of nasal cannula. She has been up and using the bathroom. She has no complaints. Review of Systems All systems reviewed & are unremarkable except as noted in HPI & below. Physical Exam On physical examination of right shoulder, the dressing is clean and dry. She is wearing her sling as instructed. She has active motion of her hand. She is able to take a deep breath. Results & Data Results & Data Laboratory Results . Diagnostic Findings . PG Care Time/CCT Total # of Minutes Spent Total Time Spent with Patient: Total time spent is greater than 50% in coordination of care (as documented) at patient's floor/unit and/or counseling patient: Coding Level of Care Code 14995 Post Operative Follow-Up Diagnoses Status post reverse total replacement of right shoulder Z96.611
[2021-07-17] MEDS: FLUTICASONE/VILANTEROL 200/25MCG 14 PUFFS/INHALER INH SCH (08:38)
[2021-07-17] MEDS: DOCUSATE SODIUM 100 MG CAP PO SCH ×2 (08:41→20:34)
[2021-07-17] MEDS: PANTOprazole 40 MG TAB PO SCH (08:42)
[2021-07-17] MEDS: MULTIVITAMIN TAB PO SCH (08:42)
--- NOTE | 2021-07-17 14:55 | Hospitalist Consultation ---
Date of Consultation July 17, 2021 Assessment & Plan (1) Hypoxia: Patient with significant history of smoking and emphysema like changes on her imaging although without PFTs for review - DDX: atelectasis with mucous plugging vs. pulmonary edema vs. COPD exacerbation with bronchitis vs. pna vs. viral illness vs. PE - CXR: remains with right hemidiaphragm- consistent with previous imaging- noted pulmonary congestion - Respiratory viral panel - pending - As she is without tachycardia and on minimal oxygen supplementation doubt PE at this time - WBC 11 - NLR 4:1 and PCT negative - bacterial infection unlikely and without opacification on CXR - ABG without hypercarbia and Pa02 7.45/37/94/25 - Will schedule SAMI nebulizers as well as hypertonic saline neb for expectoration and mobilization of secretions - Continue with SAMI prn - Continue with BREO daily- dose adjusted for COPD - ICS q1 hour - Flutter valve QID Supervising Physician Co-Signing Physician Notes I personally saw and examined the patient. I verified all starr points and agree with MEAGAN Medina with the following exceptions and/or additions: 81 year old female History of Present Illness Reason for Consultation: hypoxia Requesting Physician: tarik saunders Attending Physician: Tarik Saunders DO History of Present Illness 81 YOF with medical history of: Emphysema by imaging, COVID 19 history, OA, HTN, GERD, Hypothyroidism. Patient is POD #2 from a right shoulder replacement, done with assistance of interscalene nerve block- ebl 150ml. Hospitalist service was consulted today for hypoxia still requiring 2LNC. Chart reviewed, noting desaturations following surgery and down to 77% with activity. There has been no imaging in the interim. Patient was seen in her room where she is seated upright and with 2lNC and SPO2 100% and HR 80s. Oxygen flow rate was turned down to 0 for interview and assessment and noted with SPO2 of 92%. Patient endorses that starting last week she was noted to becoming more short of breath and in turn started to use her albuterol nebulizer at home every day with minimal effect, she normally remains with a dry cough since her COVID 01/02- disease, today she is noted to have deep raspy cough with increase production of sputum which she reports yellow color. She normally does not need to use her nebulizers at home. She also reports not following with a printed circuit boards router or have any recall of pulmonary function tests being performed. She is also sitting with her ICS at her bedside which she reports just starting using this morning and this is when she was finally able to cough up some secretions and has felt her breathing somewhat improved since then. Medication list reviewed- she is with her SAMI inhaler which is ordered as PRN but has not received any, she is noted with her BREO as well which she took this morning (formulary equivalent to her home Advair). Currently patient is noted with oxygen need that is responding to minimal oxygen therapy and without tachycardia- doubt PE at this time, she is with sputum production and wheezing and noted decrease in deep breathing. Will obtain CXR to evaluate lung thurman as well as right diaphragm with scalene block, obtain labs as none are currently available to include CBC, ABG, BMP and Procalcitonin. She has not had any fevers documented at this time. Overall impression at this time is that the patient is atelectatic with mucous plugging with possible bronchitis. Recommendations: - Scheduled nebulizers with SAMI q6 hours - BID hypertonic saline nebulizers to help with expectorating and mobilizing secretions - Continue with LABA/ICS in the form of her BREO- COPD dosing - Lasix 20mg IV x1 - follow response and may need redose in the AM - ABG evaluate for hypercarbia and PaO2 for possible COPD exacerbation although her last comparison is from 2019 with 7.44/38/42/26 - Follow CBC in am Allergies Allergy/AdvReac Type Severity Reaction Status Date / Time adhesive tape Allergy Unknown Blisters Verified 07/15/21 06:53 on skin Penicillins AdvReac Intermediate Syncope Verified 07/15/21 06:53 ("blacked out") Stvjrxr-IWR-[id number] Reductase AdvReac Intermediate Muscle Pain Verified 07/15/21 06:53 Inhibitor [Kjeoccr-Zht-Aqa Reductase Inhibitor] UNKNOWN ANTIBIOTICS Allergy Unknown Remote Uncoded 07/15/21 06:53 unknown abx (during bowel sx) > scalp itchiness Home Medications Medication Instructions Recorded Confirmed Type calcium carbonate 600 mg calcium 600 mg PO HS 04/02/18 07/15/21 History (1,500 mg) tablet (Calcium) celecoxib 200 mg capsule (Celebrex) 200 mg PO QPM 04/02/18 07/15/21 History cholecalciferol (vitamin D3) 50 2,000 unit PO QPM 04/02/18 07/15/21 History mcg (2,000 unit) capsule (Vitamin D3) esomeprazole magnesium 40 mg 40 mg PO QAM 04/02/18 07/15/21 History capsule,delayed release (Nexium) levothyroxine 100 mcg tablet 100 mcg PO QAM 04/02/18 07/15/21 History (Synthroid) meclizine 25 mg tablet 25 mg PO TID PRN 04/02/18 07/15/21 History tramadol 50 mg tablet 50 mg PO Q4 PRN 04/02/18 07/15/21 History vit C 500 mg-rutin 10 mg-hesperidn 2 tab PO QPM 04/02/18 07/15/21 History cmp 10 mg-bioflav,cit 200 mg tablet (Special C) acetaminophen 500 mg capsule 1,000 - 1,500 mg PO Q6H PRN 06/12/20 07/15/21 History duloxetine 30 mg capsule,delayed 30 mg PO QPM 06/12/20 07/15/21 History release (Cymbalta) phenazopyridine 95 mg tablet 190 mg PO QAM 06/12/20 07/15/21 History albuterol sulfate 90 mcg/actuation 2 puff INHALATION Q4 PRN 09/20/20 07/15/21 History aerosol inhaler (Ventolin HFA) cyclobenzaprine 10 mg tablet 10 mg PO HS PRN 09/20/20 07/15/21 History fluticasone propionate 230 2 puff INHALATION BID 09/20/20 07/15/21 History mcg-salmeterol 21 mcg/actuation HFA inhaler (Advair HFA) lisinopril 2.5 mg tablet 2.5 mg PO HS 09/20/20 07/15/21 History magnesium-vit P1-bjfukiwo-ievc 1 tab PO QPM 09/20/20 07/15/21 History tablet metoprolol succinate 50 mg 25 mg PO HS 09/20/20 07/15/21 History tablet,extended release 24 hr psyllium husk 0.52 gram capsule 1.04 g PO QPM 09/20/20 07/15/21 History (Metamucil) cephalexin 500 mg capsule 500 mg PO TID PRN 03/28/21 07/15/21 History rizatriptan See Rx Instructions .ROUTE .COMPLEX 04/04/21 07/15/21 History oxycodone 5 mg tablet 5 mg PO Q6H PRN #30 tab 07/16/21 Rx Patient History Medical History Acquired hypothyroidism Hx goiter > given iodine tx, now on levothyroxine Bulging discs Cervical- no ROM limitations per pt Chronic obstructive pulmonary disease Breathing stable CVA (cerebral vascular accident) "Mild" stroke (2018), no deficits Depression Hx Flashing lights Occasional (2-3x/week)- does get headache afterwards- affects vision- takes Rizatriptan - relieves GERD (gastroesophageal reflux disease) Controlled Hiatal hernia History of COVID-19 Dx 12/2019 ( [facility]) > symptoms at time of dyspnea, body aches, fatigue, weakness, low grade fever, admitted to [facility] x 5 days > symptoms resolved except residual cough (controlled with inhaler PRN) History of recent fall happened in March 2021--injury to rt shoulder Hyperlipidemia No meds Hypertension Migraine Poor historian Scoliosis Severe Surgical History History of bowel resection x2- 2/2 diverticulitis (+ cholecystectomy) History of colonoscopy Multiple History of esophagogastroduodenoscopy (EGD) History of lung surgery Fatty tumors excision History of total right hip arthroplasty Right Anterior GERTRUDE 10/15/20= Done under SAB at L3-4 with 1 attempt. S/P breast biopsy, bilateral Benign S/P foot surgery, right Bunionectomy Family History Mother Family history of diabetes mellitus Social History Smoking Status: Former smoker Smoking End Date: quit 25yrs ago; Second Hand Exposure: No; Do You Dip or Chew Tobacco: No; Tobacco Cessation Education Requested by Patient: No Hx Alcohol Use: No Hx Substance Use: No Preferred Language: Welsh Communication Ability: Effective Repair Manager Required: No Beliefs That Will Affect Care: None marital status: Current Living Situation: Spouse and Family Current Living Situation Comment: Lives with and granddaughter Other Information That Helps Us Care for You: No Feels Safe at Home: Yes Safety Concerns: Feels Safe At This Time Assistive Devices: Cane and Walker Review of Systems Review of Systems: REVIEW OF SYSTEMS: Constitutional: No fever, sweats or chills Eyes: No diplopia, no worsening or blurred vision ENT: normal hearing, no trouble swallowing Respiratory: (+) increase in cough, sputum, dyspnea at rest or on exertion Cardiovascular: No chest pain, tightness or palpitations Abdomen: No pain, nausea, vomiting, diarrhea or constipation Musculoskeletal: (+) joint pain, calf pain, swelling Neurologic: No weakness, numbness/tingling, or balance problems Psychiatric: No anxiety or depression Skin: No rash or itch Physical Exam Physical Exam: PHYSICAL EXAM: General: awake, alert, no apparent distress Head: Normocephalic, atraumatic ENT: PERRLA, EOMI, no pharyngeal exudate, mucous membranes moist Neuro: AAO x 3, speech clear and appropriate, strength intact bilaterally 5/5, sensation intact and equal all extremities and dermatomes, no pronator drift Chest: equal rise and fall of the chest, no accessory muscle use, conversationally dyspneic, with raspy productive cough, expiratory wheezing bilaterally througouht with scattered crackles, lung sounds appreciated whole way down right side Cardiac: Regular rate and rhythm, S1S2, skin warm dry, cap refill <3 seconds, peripheral pulses +2 no JVD, no murmur, no edema GI: NABS x 4 quadrants, soft, nontender to palpation, no rebound, guarding or tenderness : Spontaneously voiding, no pain, no CVA tenderness, Extremities: Right arm in sling with bruising noted to trap and clavicle, good sensation and movement of right fingers Psych: Normal mood and affect Skin: no rash or erythema Results & Data Results & Data ([facility]) Vital Signs (Past 12 Hours) Vital Signs Temp Pulse Resp BP Pulse Ox 07/17/21 13:41 94 07/17/21 10:35 93 07/17/21 10:11 95 07/17/21 07:45 36.5 C 74 16 131/79 93 Diagnostic Findings Shoulder X-Ray 07/15/21 11:11 RIGHT SHOULDER 2 VIEWS CLINICAL HISTORY: Postoperative examination. FINDINGS: 2 portable views of the right shoulder are obtained. The skeletal structures are osteopenic. A right shoulder arthroplasty is in near-anatomic alignment. No acute fracture is seen. Mild productive degenerative change is noted at the acromioclavicular joint. Skin clips, soft tissue gas, and edema overlying the right shoulder are expected postoperative changes. The right lung appears clear noting basilar atelectasis. IMPRESSION: Expected postoperative findings status post right shoulder arthroplasty. No acute fracture is seen. Electronically signed by: Thien Alaniz M.D. 07/15/2021 2:35 PM Medications Administered Home Medications calcium carbonate 600 mg calcium (1,500 mg) tablet (Calcium) 600 mg PO HS 04/02/18 [History Confirmed 07/15/21] celecoxib 200 mg capsule (Celebrex) 200 mg PO QPM 04/02/18 [History Confirmed 07/15/21] cholecalciferol (vitamin D3) 50 mcg (2,000 unit) capsule (Vitamin D3) 2,000 unit PO QPM 04/02/18 [History Confirmed 07/15/21] esomeprazole magnesium 40 mg capsule,delayed release (Nexium) 40 mg PO QAM 04/02/18 [History Confirmed 07/15/21] levothyroxine 100 mcg tablet (Synthroid) 100 mcg PO QAM 04/02/18 [History Confirmed 07/15/21] meclizine 25 mg tablet 25 mg PO TID PRN 04/02/18 [History Confirmed 07/15/21] tramadol 50 mg tablet 50 mg PO Q4 PRN 04/02/18 [History Confirmed 07/15/21] vit C 500 mg-rutin 10 mg-hesperidn cmp 10 mg-bioflav,cit 200 mg tablet (Special C) 2 tab PO QPM 04/02/18 [History Confirmed 07/15/21] acetaminophen 500 mg capsule 1,000 - 1,500 mg PO Q6H PRN 06/12/20 [History Confirmed 07/15/21] duloxetine 30 mg capsule,delayed release (Cymbalta) 30 mg PO QPM 06/12/20 [History Confirmed 07/15/21] phenazopyridine 95 mg tablet 190 mg PO QAM 06/12/20 [History Confirmed 07/15/21] albuterol sulfate 90 mcg/actuation aerosol inhaler (Ventolin HFA) 2 puff INHALATION Q4 PRN 09/20/20 [History Confirmed 07/15/21] cyclobenzaprine 10 mg tablet 10 mg PO HS PRN 09/20/20 [History Confirmed 07/15/21] fluticasone propionate 230 mcg-salmeterol 21 mcg/actuation HFA inhaler (Advair HFA) 2 puff INHALATION BID 09/20/20 [History Confirmed 07/15/21] lisinopril 2.5 mg tablet 2.5 mg PO HS 09/20/20 [History Confirmed 07/15/21] magnesium-vit R5-zruiknfx-mevr tablet 1 tab PO QPM 09/20/20 [History Confirmed 07/15/21] metoprolol succinate 50 mg tablet,extended release 24 hr 25 mg PO HS 09/20/20 [History Confirmed 07/15/21] psyllium husk 0.52 gram capsule (Metamucil) 1.04 g PO QPM 09/20/20 [History Confirmed 07/15/21] cephalexin 500 mg capsule 500 mg PO TID PRN 03/28/21 [History Confirmed 07/15/21] rizatriptan See Rx Instructions .ROUTE .COMPLEX 04/04/21 [History Confirmed 07/15/21] oxycodone 5 mg tablet 5 mg PO Q6H PRN #30 tab 07/16/21 [Rx] Active Medications Acetaminophen (Acetaminophen 500 Mg Tab) 1,000 mg PO Q8 [facility] Stop: 08/14/21 13:59 Last Admin: 07/17/21 06:10 Dose: 1,000 mg Documented by: Albuterol (Albuterol Hfa 8 Gm Inhaler) 2 puffs INH Q4 PRN PRN Reason: Shortness Of Breath Stop: 08/14/21 12:25 Albuterol (Albut/Ipratrop 3mg/0.5mg Neb 3 Ml Vial) 3 ml NEB Q6 [facility]; Protocol Stop: 08/16/21 17:59 Bisacodyl (Bisacodyl 10 Mg Supp) 10 mg TN DAILY PRN PRN Reason: Constipation Stop: 08/14/21 12:25 Docusate Sodium (Docusate Sodium 100 Mg Cap) 100 mg PO BID [facility] Stop: 08/14/21 20:59 Last Admin: 07/17/21 08:41 Dose: 100 mg Documented by: Duloxetine HCl (Duloxetine Hcl 30 Mg Cap) 30 mg PO QPM [facility] Stop: 08/14/21 20:59 Last Admin: 07/16/21 20:05 Dose: 30 mg Documented by: Fluticasone/Vilanterol (Fluticasone/Vilanterol 200/25mcg 14 Puffs/Inhaler) 1 puffs INH DAILY [facility] Stop: 08/15/21 08:59 Last Admin: 07/17/21 08:38 Dose: 1 puffs Documented by: Hydromorphone HCl (Hydromorphone Inj 0.5 Mg/0.5 Ml Syr) 0.5 mg IV Q4H PRN PRN Reason: Pain or Pre PT Stop: 07/29/21 12:25 Last Admin: 07/16/21 19:58 Dose: 0.5 mg Documented by: Levothyroxine Sodium (Levothyroxine Sodium 100 Mcg Tablet) [facility] Stop: 08/15/21 06:29 Last Admin: 07/17/21 06:10 Dose: 100 mcg Documented by: Lisinopril (Lisinopril 2.5 Mg Tab) 2.5 mg PO [facility] Stop: 08/14/21 20:59 Last Admin: 07/16/21 20:05 Dose: 2.5 mg Documented by: Magnesium Hydroxide (Magnesium Hydroxide Susp 30 Ml Udc) 30 ml PO Q6H PRN PRN Reason: Constipation Stop: 08/14/21 12:25 Meclizine HCl (Meclizine Hcl 25 Mg Tab) 25 mg PO TID PRN PRN Reason: Dizziness Stop: 08/14/21 12:25 Metoclopramide HCl (Metoclopramide Hcl Inj 5 Mg/Ml 2 Ml Vial) 10 mg IV Q6H PRN PRN Reason: Nausea And Vomiting Stop: 08/14/21 12:25 Metoprolol Succinate (Metoprolol Succ 25mg Ext Rel Tab) 25 mg PO [facility] Stop: 08/14/21 20:59 Last Admin: 07/16/21 20:05 Dose: 25 mg Documented by: Multivitamins (Multivitamin Tab) 1 tab PO QAM [facility] Stop: 08/15/21 08:59 Last Admin: 07/17/21 08:42 Dose: 1 tab Documented by: Naloxone HCl (Naloxone Hcl 0.4 Mg/1 Ml Vial/Carp) 0.1 mg IV Q5M PRN PRN Reason: Oversedation/Resp Depression Stop: 08/14/21 12:25 Ondansetron HCl (Ondansetron Inj 2 Mg/Ml 2 Ml Vial) 4 mg IV Q6H PRN PRN Reason: Nausea And Vomiting Stop: 08/14/21 12:25 Oxycodone HCl (Oxycodone Hcl Ir 5 Mg Tab (Immediate Release)) 5 - 10 mg PO Q4H PRN PRN Reason: Pain or Pre PT Stop: 07/29/21 12:25 Last Admin: 07/16/21 22:30 Dose: 10 mg Documented by: Pantoprazole Sodium (Pantoprazole 40 Mg Tab) 40 mg PO QAM [facility] Stop: 08/15/21 08:59 Last Admin: 07/17/21 08:42 Dose: 40 mg Documented by: Rizatriptan Benzoate (Rizatriptan Benzoate 10 Mg Tab) 5 mg PO DAILY PRN PRN Reason: Migraine Headache Stop: 08/14/21 12:56 Sennosides (Senna 8.6 Mg Tab) 17.2 mg PO HS [facility] Stop: 08/14/21 20:59 Last Admin: 07/16/21 20:04 Dose: Not Given Documented by: Sodium Chloride (Sodium Chlor 7% 4 Ml Neb) 4 ml NEB BIDR [facility] Stop: 08/16/21 18:59 ECG Additional Comments: none obtained PG Care Time/CCT Total # of Minutes Spent Total Time Spent with Patient: Total time spent is greater than 50% in coordination of care (as documented) at patient's floor/unit and/or counseling patient: Coding Level of Care Code 29515 Office/OBS Consult Lvl 4 Diagnoses Hypoxia R09.02
[2021-07-17] MEDS ORDERED: FUROSEMIDE INJ 20 MG/2 ML VIAL IV ONE (15:00)
--- NOTE | 2021-07-17 15:18 | XRay Report ---
SINGLE VIEW CHEST CLINICAL HISTORY: Hypoxia. FINDINGS: An AP, portable, upright chest radiograph is compared to study dated 04/03/2021 and correlat ed with chest CT dated 04/02/2018. The heart is top normal for projection. There is calcification of t he thoracic aorta. A right-sided arch is noted. There is prominence of the pulmonary vasculature. Emp hysema and chronic interstitial thickening is similar to previous. There is chronic elevation of the right hemidiaphragm with bibasilar scarring/atelectasis. No large pleural effusion or pneumothorax is seen. The bony thorax is grossly intact. A right shoulder arthroplasty is in place. Advanced arthrit ic change and deformity is noted in the left shoulder. Degenerative change and scoliosis is noted in the spine. Cholecystectomy clips are seen in the right upper quadrant. Skin clips project over the ri ght shoulder. IMPRESSION: 1. There is prominence of the pulmonary vasculature. Correlate clinically for evidence of fluid overl oad/congestive failure. 2. Dependent airspace opacities likely represent scarring/atelectasis. Clinical correlation will be r equired. 3. A right-sided aortic arch is incidentally noted. ACT 112: Negative or not required by law. Electronically signed by: Thien Alaniz M.D. 07/17/2021 3:17 PM
[2021-07-17 15:44] LABS: Allen Test POS (Pos); HCO3 ABG 25 mmol/L (19-24); Oxygen Saturation ABG 97.3 % (90-95); PCO2 ABG 37 mmHg (35-46); PO2 ABG 94 mmHg (80-95); pH ABG 7.45 (7.35-7.45)
[2021-07-17 15:54] LABS: Basophils # (auto) 0.02 K/uL (0-0.2); Basophils % (auto) 0.2 %; Eosinophils # (auto) 0.21 K/uL (0-0.5); Eosinophils % (auto) 1.9 %; Hematocrit (blood only) 34.2 % (37-47); Hemoglobin 10.8 g/dL (12.0-16.0); Immature Granulocytes # (auto) 0.03 K/uL (0.00-0.02); Immature Granulocytes % (auto) 0.3 %; Lymphocytes % (auto) 17.7 %; Mean Corpuscular Hemoglobin 29.5 pg (25-34); Mean Corpuscular Hgb Conc 31.6 g/dL (32-36); Mean Corpuscular Volume 93.4 fL (80-100); Mean Platelet Volume 9.2 fL (7.4-10.4); Monocytes # (auto) 0.86 K/uL (0.11-0.59); Monocytes % (auto) 7.6 %; Neutrophils # (auto) 8.16 K/uL (1.4-6.5); Neutrophils % (auto) 72.3 %; Platelet Count 429 K/uL (130-400); RDW Coefficient of Variation 14.2 % (11.5-14.5); RDW Standard Deviation 48.3 fL (36.4-46.3); Red Blood Count 3.66 M/uL (4.2-5.4); White Blood Count 11.28 K/uL (4.8-10.8)
[2021-07-17 16:10] LABS: BUN Creatinine Ratio 24.4 (10-20); Calcium 8.5 mg/dl (8.5-10.1); Creatinine Clr Calc Pharmacy 38.7 ml/min; Est GFR (African American) 83.2 ml/min; Est GFR (Non-African American) 71.8 ml/min; Potassium 3.7 mmol/L (3.5-5.1)
[2021-07-17] MEDS ORDERED: POTASSIUM CHLORIDE CRTAB 20 MEQ TABCR PO STA (17:33)
[2021-07-17] MEDS ORDERED: ALBUT/IPRATROP 3MG/0.5MG NEB 3 ML VIAL NEB SCH (18:00)
[2021-07-17] MEDS: oxyCODONE HCL IR 5 MG TAB (IMMEDIATE RELEASE) PO PRN (18:21)
[2021-07-17 18:26] LABS: Adenovirus PCR Not Detected (NotDetected); Bordetella parapertussis PCR Not Detected (NotDetected); Bordetella pertussis PCR Not Detected (NotDetected); Chlamydia pneumoniae PCR Not Detected (NotDetected); Coronavirus 229E PCR Not Detected (NotDetected); Coronavirus CoV-2 (COVID19)PCR Not Detected (NotDetected); Coronavirus HKU1 PCR Not Detected (NotDetected); Coronavirus NL63 PCR Not Detected (NotDetected); Coronavirus OC43PCR Not Detected (NotDetected); Human Metapneumovirus PCR Not Detected (NotDetected); Influenza A PCR Not Detected (NotDetected); Influenza B PCR Not Detected (NotDetected); Mycoplasma pneumoniae PCR Not Detected (NotDetected); Parainfluenza Virus 1 PCR Not Detected (NotDetected); Parainfluenza Virus 2 PCR Not Detected (NotDetected); Parainfluenza Virus 3 PCR Not Detected (NotDetected); Parainfluenza Virus 4 PCR Not Detected (NotDetected); Respiratory Syncytial VirusPCR Not Detected (NotDetected); Rhinovirus/Enterovirus PCR Not Detected (NotDetected)
[2021-07-17] MEDS: SODIUM CHLOR 7% 4 ML NEB NEB SCH (18:55)
[2021-07-17] MEDS: ALBUT/IPRATROP 3MG/0.5MG NEB 3 ML VIAL NEB SCH (18:55)
[2021-07-17] MEDS: HYDROmorphone INJ 0.5 MG/0.5 ML SYR IV PRN ×2 (19:40→20:30)
[2021-07-17] MEDS: SENNA 8.6 MG TAB PO SCH (20:34)
[2021-07-17] MEDS: DULoxetine HCL 30 MG CAP PO SCH (20:35)
[2021-07-17] MEDS: METOPROLOL SUCC 25MG EXT REL TAB PO SCH (20:36)
[2021-07-17] MEDS: lisinopril 2.5 MG TAB PO SCH (20:36)
[2021-07-18] MEDS: ALBUT/IPRATROP 3MG/0.5MG NEB 3 ML VIAL NEB SCH ×4 (00:03→19:55)
[2021-07-18] MEDS: LEVOTHYROXINE SODIUM 100 MCG TABLET PO SCH (06:10)
[2021-07-18] MEDS: ACETAMINOPHEN 500 MG TAB PO SCH ×3 (06:10→21:34)
--- NOTE | 2021-07-18 07:00 | Orthopedic Progress Note ---
Date of Service July 18, 2021 Assessment & Plan (1) Status post reverse total replacement of right shoulder: Overall she is feeling much better. She had a period on room air last night and her saturations remained above 90%. I think we can wean her off the oxygen this morning. We will see how she does with physical therapy. If her saturations remain above 90% then she can be discharged home. We will wait for the hospitalist to see and examine her as well. Yolanda Mcghee was seen and examined at bedside this morning. Overall she says she feels much better. She says she is no longer coughing. The breathing treatments yesterday seem to help a lot. She is feeling much better and has no complaints. Review of Systems All systems reviewed & are unremarkable except as noted in HPI & below. Physical Exam On physical examination of the right shoulder, the dressing is clean and dry. She is wearing her sling as instructed. She has active dorsiflexion of her right wrist. Results & Data Results & Data Laboratory Results . Diagnostic Findings . PG Care Time/CCT Total # of Minutes Spent Total Time Spent with Patient: Total time spent is greater than 50% in coordination of care (as documented) at patient's floor/unit and/or counseling patient: Coding Level of Care Code 97888 Post Operative Follow-Up Diagnoses Status post reverse total replacement of right shoulder Z96.611
[2021-07-18 07:07] LABS: Basophils # (auto) 0.02 K/uL (0-0.2); Basophils % (auto) 0.2 %; Eosinophils # (auto) 0.31 K/uL (0-0.5); Eosinophils % (auto) 3.7 %; Hematocrit (blood only) 33.9 % (37-47); Hemoglobin 10.7 g/dL (12.0-16.0); Immature Granulocytes # (auto) 0.02 K/uL (0.00-0.02); Immature Granulocytes % (auto) 0.2 %; Lymphocytes # (auto) 1.53 K/uL (1.2-3.4); Lymphocytes % (auto) 18.2 %; Mean Corpuscular Hemoglobin 29.6 pg (25-34); Mean Corpuscular Hgb Conc 31.6 g/dL (32-36); Mean Corpuscular Volume 93.6 fL (80-100); Mean Platelet Volume 9.1 fL (7.4-10.4); Monocytes # (auto) 0.71 K/uL (0.11-0.59); Monocytes % (auto) 8.4 %; Neutrophils # (auto) 5.82 K/uL (1.4-6.5); Neutrophils % (auto) 69.3 %; Platelet Count 421 K/uL (130-400); RDW Coefficient of Variation 14.3 % (11.5-14.5); RDW Standard Deviation 48.9 fL (36.4-46.3); Red Blood Count 3.62 M/uL (4.2-5.4); White Blood Count 8.41 K/uL (4.8-10.8)
[2021-07-18 07:20] LABS: BUN Creatinine Ratio 23.2 (10-20); Calcium 8.4 mg/dl (8.5-10.1); Creatinine Clr Calc Pharmacy 43.8 ml/min; Est GFR (African American) 95.3 ml/min; Est GFR (Non-African American) 82.2 ml/min; Magnesium 1.6 mg/dl (1.7-2.4); Potassium 4.1 mmol/L (3.5-5.1)
[2021-07-18] MEDS: SODIUM CHLOR 7% 4 ML NEB NEB SCH ×2 (07:20→19:55)
[2021-07-18] MEDS: oxyCODONE HCL IR 5 MG TAB (IMMEDIATE RELEASE) PO PRN (08:21)
[2021-07-18] MEDS: DOCUSATE SODIUM 100 MG CAP PO SCH ×2 (08:22→20:40)
[2021-07-18] MEDS: PANTOprazole 40 MG TAB PO SCH (08:22)
[2021-07-18] MEDS: MULTIVITAMIN TAB PO SCH (08:22)
[2021-07-18] MEDS: FLUTICASONE/VILANTEROL 100/25MCG 14 PUFFS/INHALER INH SCH (08:25)
[2021-07-18] MEDS ORDERED: FLUTICASONE/VILANTEROL 100/25MCG 14 PUFFS/INHALER INH SCH (09:00)
[2021-07-18] MEDS ORDERED: ACETAMINOPHEN 1,000 MG/100 ML VIAL IV PRN (10:42)
[2021-07-18] MEDS ORDERED: KETOROLAC TROMETHAMINE 15 MG/ML VIAL IV PRN (10:44)
[2021-07-18] MEDS: FUROSEMIDE 40 MG/4 ML VIAL IV SCH ×2 (12:25→18:02)
--- NOTE | 2021-07-18 17:57 | Hospitalist Progress Note ---
Date of Service July 18, 2021 Assessment & Plan (1) Hypoxia: Plan: New onset acute hypoxia, postoperatively multifactorial in the setting of having history of emphysema/COPD Multifactorial, including emphysema, receiving anesthesia, narcotics, BNP is low, viral panel is negative, will check for D-dimer, Stop narcotics Started on Toradol for pain management, started on Tylenol IV for pain management Incentive spirometer Check for D-dimer Low procalcitonin, white cell count within normal limits Admission and Anticipated Discharge Date Admission Date: July 17, 2021 Subjective Patient developed hypoxia overnight and sats dropped to 80s Results & Data Results & Data ([facility]) Vital Signs (Past 12 Hours) Vital Signs Temp Pulse Pulse Resp BP Pulse Ox 07/18/21 15:09 36.3 C L 102 H 18 97/61 L 97 07/18/21 14:25 96 07/18/21 14:20 88 L 07/18/21 12:56 90 16 93 07/18/21 09:04 92 07/18/21 07:28 36.5 C 70 16 128/72 100 07/18/21 07:22 75 18 94 PG Care Time/CCT Total # of Minutes Spent Total Time Spent with Patient: Total time spent is greater than 50% in coordination of care (as documented) at patient's floor/unit and/or counseling patient: Coding Level of Care Code 35245 Subseq Hosp Care Lvl 2 Diagnoses Hypoxia R09.02
[2021-07-18 19:47] LABS: D Dimer 1480 ug/L FEU (0-500)
--- NOTE | 2021-07-18 20:26 | Communication Note ---
Date of Service: July 18, 2021 Received notification that patient's D-dimer returned positive at 1480. I reviewed her chart. Noted she has h/o smoking, radiologically-detected emphysema and suspected COPD, previous COVID 19, HTN who is POD2 from R shoulder replacement. Medicine was consulted for difficulty weaning her off oxygen. DDX, based on day-team notes, was postoperative atelectasis, COPD exacerbation, pulmonary edema. RVP returned negative. Thankfully, ABG was respectable earlier in the day. Speaking with patient's RN, she has had continued WHITING off oxygen and still is requiring 1-2L via NC. She reports to me _ VS: 114/72, HR 109, SpO2 96% on 2L General: 81-year old F who is alert, oriented, and appears in no acute distress. HEENT: NCAT. - Eyes - Sclera are white, anicteric, and without injection. - Mouth - MMM - Neck - supple, no appreciable JVD Cardiac: Normal rate and regular rhythm; S1 and S2 present with no murmurs, rubs, or gallops. Pulmonary: Good respiratory effort with symmetric expansion of the chest. No use of accessory muscles. Lungs demonstrate bilateral scattered rhonchi with +crackles in L base during inspiration. Extremities: Upper and lower extremities are warm and well perfused. 1+ periph eral edema in the lower extremities bilaterally. No unilateral enlargement or erythema. I spoke with Dr. Hendrickson, patient's daytime hospitalist, regarding the positive D-dimer in the setting of her ongoing SOB without O2 and oxygen requirement. While D-dimer may be elevated postoperatively in general, it is difficult to rule out PE as a possible cause to this with her ongoing respiratory symptoms. He recommended pursuit of PE studies, which will be performed. CTA-Chest ordered. Renal function reviewed and is acceptable. Communicated care to patient's RN. Will f/u based on results. Resident Activity Tracking Resident Involvement: Resident Care Provided Care Provided: Adult Hospital Medicine
[2021-07-18] MEDS: METOPROLOL SUCC 25MG EXT REL TAB PO SCH (20:40)
[2021-07-18] MEDS: SENNA 8.6 MG TAB PO SCH (20:40)
[2021-07-18] MEDS: DULoxetine HCL 30 MG CAP PO SCH (20:41)
[2021-07-18] MEDS ORDERED: OPTIRAY 320 125ml IV ONE (21:48)
[2021-07-19] MEDS: ALBUT/IPRATROP 3MG/0.5MG NEB 3 ML VIAL NEB SCH ×3 (00:02→11:57)
[2021-07-19] MEDS: ACETAMINOPHEN 500 MG TAB PO SCH ×2 (06:36→15:20)
[2021-07-19] MEDS: LEVOTHYROXINE SODIUM 100 MCG TABLET PO SCH (06:37)
[2021-07-19] MEDS: SODIUM CHLOR 7% 4 ML NEB NEB SCH (07:16)
--- NOTE | 2021-07-19 07:31 | CT Scan Report ---
CHEST CTA for PULMONARY ARTERIES CT DOSE: 512.41 mGy.cm HISTORY: Shortness of breath, O2 req, postop, positive D dimer TECHNIQUE: Multiaxial CT images of the chest were performed following the intravenous administration of contrast to evaluate the pulmonary arteries. Maximal intensity projection images were also obtaine d. A dose lowering technique was utilized adhering to the principles of ALARA. COMPARISON STUDY: Chest CTA 04/02/2018. FINDINGS: There is mild inferior endplate compression deformity at T4. This is technically age indete rminate but likely chronic. Limited views the upper abdomen demonstrate a normal liver, spleen, and v isualized adrenal glands. Prior cholecystectomy. Trace right pleural effusion. There is mild elevatio n of the right hemidiaphragm, unchanged. Normal esophagus. No mediastinal or hilar lymphadenopathy. N o pericardial effusion. The heart is mildly enlarged. Status post right total shoulder arthroplasty. Subcutaneous gas and skin per consistent with the recent postoperative change. There is a right-s ided aortic arch demonstrating mild calcified plaque. No evidence for an aortic dissection. Moderate coronary artery calcifications are noted. No filling defects within the pulmonary arteries to suggest a pulmonary embolus. No pneumothorax. Moderate emphysema. Stable calcification within the left lung apex which is likely benign. A few punctate calcified granulomas within the right lung apex. There is new 7 mm nodule within the right upper lobe on image 158. A few bibasilar densities favor subsegment al atelectasis. There are suture material within the base the right lower lobe suggesting postoperati ve change. There is a 5 mm nodule within the right middle lobe on image 133 and a 3 mm nodule within the right middle lobe on image 126. The 5 mm nodule within the right middle lobe have slightly increa sed in size, previously measuring 4 mm. IMPRESSION: 1. No evidence for pulmonary embolus. 2. Right-sided aortic arch. 3. Emphysema. 4. Bibasilar densities are nonspecific but favor atelectasis. 5. Mild anterior endplate compression deformity at T4. This is likely chronic. 6. A few subcentimeter indeterminate pulmonary nodule within the right lung with the largest in the r ight upper lobe measuring 7 mm. This is new from the prior study. Follow-up recommended. Please refer to below summary of Fleischner criteria recommendations for follow-up of incidental CT n odules MartinH Vandana, Guidelines for management of small pulmonary nodules detected on CT scans: A shadi tement from the Fleischner Society, Radiology 237: [phone].) SOLID NODULES Solitary nodule size: <6 mm * Low risk patients: no follow-up needed * high risk patients: optional CT at 12 months Solitary nodule size: 6-8 mm * Low risk patients: follow-up at 6-12 months, then consider further follow-up at 18-24 months * high risk patients: initial follow-up CT at 6-12 months and then at 18-24 months if no change Solitary nodule size: >8 mm * either low or high risk patients - consider follow-up CT at 3 months, and/or CT-PET, and/or biopsy Multiple nodules size: <6 mm * Low risk patients: no routine follow-up * high risk patients: optional CT at 12 months Multiple nodules size: 6-8 mm * Low risk patients: follow-up at 3-6 months, then consider further follow-up at 18-24 months * high risk patients: follow-up at 3-6 months, then at 18-24 months if no change Multiple nodules size: >8 mm * Low risk patients: follow-up at 3-6 months, then consider further follow-up at 18-24 months * high risk patients: follow-up at 3-6 months, then at 18-24 months if no change Note: newly detected indeterminate nodule in persons 35 years of age or older. * Low risk patients: minimal or absent history of smoking and/or other known risk factors * high risk patients: history of smoking or of other known risk factors (e.g. first degree relative with lung cancer, or exposure to asbestos, radon, uranium) * if a nodule up to 8 mm is partly solid or is ground glass further follow-up is required after 24 m onths to exclude possible slow growing adenocarcinoma (MICHAEL) SUBSOLID NODULES Solitary pure ground-glass nodule * nodule size <6 mm - no CT follow-up required * nodule size >=6 mm - follow-up CT at 6-12 months, then every 2 years until 5 years Solitary part-solid nodule * nodule size <6 mm - no CT follow-up required * nodule size >=6 mm - follow-up CT at 3-6 months. If unchanged, and solid component remains <6 mm, then annual follow-up for 5 years Multiple subsolid nodules * nodule size <6 mm - follow-up CT at 3-6 months, consider further follow-up at 2 and 4 years if sta ble * nodule size >=6 mm - follow-up CT at 3-6 months, subsequent management based on the most suspiciou s nodule(s) ACT 112: Positive. There are findings on this exam that require communication between the performing entity and the patient following Patient Test Result Information Act ([place] Act 112) guidelines. Electronically signed by: Nikolas Christian M.D. 07/19/2021 7:29 AM
[2021-07-19] MEDS: DOCUSATE SODIUM 100 MG CAP PO SCH (09:22)
[2021-07-19] MEDS: FLUTICASONE/VILANTEROL 100/25MCG 14 PUFFS/INHALER INH SCH (09:23)
[2021-07-19] MEDS: MULTIVITAMIN TAB PO SCH (09:24)
[2021-07-19] MEDS: PANTOprazole 40 MG TAB PO SCH (09:25)
--- NOTE | 2021-07-19 12:42 | Orthopedic Progress Note ---
Date of Service July 19, 2021 Assessment & Plan (1) Status post reverse total replacement of right shoulder: With regards to her right shoulder she is doing fairly well. She denies any issues with that. She is still in some issues with her lungs. She is requiring 1 L of nasal cannula to remain above 90%. A CT scan was done of her lungs which showed no evidence of PE but some nodules present. It appears she has some atelectasis as well. The hospitalist will discuss this with her. She is orthopedically ready for discharge when she is medically ready. She will need to talk to the hospitalist about her CT scan results and see if we can wean her off the oxygen or if she needs any further treatment. Yolanda Mcghee was seen and examined at bedside this morning. She says she is feeling better today. She says she is able to take a deep breath. She is down to only 1 L of oxygen at this time. She has been participating with physical therapy. Review of Systems All systems reviewed & are unremarkable except as noted in HPI & below. Physical Exam On physical examination of the right shoulder, the dressing is clean and dry. She is neurovascularly intact. Results & Data Results & Data Laboratory Results . Diagnostic Findings . PG Care Time/CCT Total # of Minutes Spent Total Time Spent with Patient: Total time spent is greater than 50% in coordination of care (as documented) at patient's floor/unit and/or counseling patient: Coding Level of Care Code 17377 Post Operative Follow-Up Diagnoses Status post reverse total replacement of right shoulder Z96.611
== END 2021-07-19 16:05 | disposition home health service (06) ==
LOC: ASU 06:17 → 3E 06:17 → SUATTDRO 07-17 20:30